=== PATIENT | female | born 1945 | race Caucasian/White ===

== ENCOUNTER 2017-06-26 15:23 | Outpatient (CLI) | payer OTHER, MEDICARE ==
--- NOTE | 2017-06-28 17:15 | Mammography Report ---
DIGITAL SCREENING MAMMOGRAM: 06/26/2017 CLINICAL INDICATION: A 71-year-old with history of benign biopsies for screening. TECHNIQUE: Routine CC and MLO projections were obtained of the breasts. COMPARISON: 01/2015, 11/2007. The breasts again demonstrate heterogeneously dense fibroglandular parenchyma bilaterally. Post-biop sy changes are stable. Coarse and punctate, typically benign calcifications are present. No suspici ous masses, clustered microcalcifications, or regions of architectural distortion are identified. IMPRESSION: BENIGN FINDINGS. RECOMMENDATION: ROUTINE ANNUAL SCREENING UNLESS OTHERWISE CLINICALLY INDICATED. BIRADS CATEGORY: 2, BENIGN FINDINGS. STANDARD QUALIFYING STATEMENTS 1. This examination was reviewed with the aid of Computed-Aided Detection (CAD). 2. A negative or benign imaging report should not delay biopsy if clinically suspicious findings are present. Consider surgical consultation if warranted. More than 5% of cancers are not identified b y imaging. 3. Dense breasts may obscure an underlying neoplasm. JOB #: [id number] EXT JOB #:[id number]
== END 2017-06-26 15:24 | disposition home or self-care (01) ==
LOC: DI 15:23
PROVIDERS: ATTEND Family Medicine
DX: Z12.31 Encounter for screening mammogram for malignant neoplasm of breast (principal)
CPT/HCPCS: 77067

== ENCOUNTER 2017-11-20 12:14 | Outpatient (CLI) | payer OTHER, MEDICARE ==
[2017-11-20 19:06] LABS: MEAN CORPUSCULAR HEMOGLOBIN 31.8 pg (27.0-31.0); MEAN CORPUSCULAR HGB CONC 33.5 g/dL (32.0-36.0); MEAN CORPUSCULAR VOLUME 94.8 fL (81.0-99.0); MEAN PLATELET VOLUME 6.6 fL (7.9-10.8); RED BLOOD COUNT 4.41 10^6/uL (4.20-5.40); RED CELL DISTRIBUTION WIDTH 12.4 % (12.0-15.0)
[2017-11-20 19:15] LABS: CALCIUM 9.4 mg/dL (8.5-10.3); CREATININE 0.8 mg/dL (0.4-1.0)
== END 2017-11-20 12:15 ==
LOC: LAB.WCP 12:14
PROVIDERS: ATTEND Family Medicine
DX: I10 Essential (primary) hypertension (principal)
CPT/HCPCS: 36415; 80048

== ENCOUNTER 2018-07-26 02:30 | Outpatient (CLI) | payer OTHER, MEDICARE | END 2018-07-26 02:31 | disposition critical access hospital (66) | LOC: EMS 02:30 | PROVIDERS: ATTEND Surgery | DX: R10.9 Unspecified abdominal pain (principal) | CPT/HCPCS: A0425; A0429 ==

== ENCOUNTER 2018-07-26 02:46 | Emergency (ER) | payer OTHER, MEDICARE ==
[2018-07-26 03:02] LABS: BASOPHILS # (AUTO) 0.1 10^3/uL (0.0-0.1); BASOPHILS % (AUTO) 1.2 %; EOSINOPHILS # (AUTO) 0.2 10^3/uL (0.0-0.7); EOSINOPHILS % (AUTO) 2.5 %; LYMPHOCYTES % (AUTO) 11.9 %; MEAN CORPUSCULAR HGB CONC 35.3 g/dL (32.0-36.0); MEAN CORPUSCULAR VOLUME 96.3 fL (81.0-99.0); MEAN PLATELET VOLUME 5.5 fL (7.9-10.8); MONOCYTES # (AUTO) 0.3 10^3/uL (0.0-1.0); MONOCYTES % (AUTO) 3.7 %; NEUTROPHILS # (AUTO) 6.6 10^3/uL (1.5-6.6); NEUTROPHILS % (AUTO) 80.7 %; PLT - PLATELET COUNT 211 10^3/uL (130-450); RED CELL DISTRIBUTION WIDTH 12.9 % (12.0-15.0); WHITE BLOOD COUNT 8.2 x10^3/uL (4.8-10.8)
[2018-07-26 03:14] LABS: ALBUMIN/GLOBULIN RATIO 1.3 (1.0-2.2); BILIRUBIN,TOTAL 0.4 mg/dL (0.2-1.0); CREATININE 0.7 mg/dL (0.4-1.0); TOTAL PROTEIN 7.2 g/dL (6.7-8.2)
--- NOTE | 2018-07-26 03:17 | ED Physician Documentation ---
PD HPI ABD PAIN - Stated complaint Stated Complaint: RLQ PAIN - Chief complaint Chief Complaint: Abd Pain - History obtained from History obtained from: Patient - History of Present Illness Timing - onset: Enter time (22:00) Timing - duration: Hours Timing - details: Abrupt onset Pain level max: 10 Pain level now: 10 Quality: Pain Location: RLQ Radiation: Other (does not radiate) Improved by: Laying still Worsened by: Moving, Palpation Associated symptoms: Nausea. No: Fever, Vomiting, Diarrhea, Constipation Similar symptoms before: Has not had sx before Recently seen: Not recently seen - Additional information Additional information: c/o RLQ abdominal pain, sudden onset that woke her from sleep at 10 PM Review of Systems Constitutional: reports: Reviewed and negative Cardiac: reports: Reviewed and negative Respiratory: reports: Reviewed and negative GI: reports: Abdominal Pain, Nausea. 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 HEENT: Tonsil/Adenoidectomy - Present Medications Home Medications: Ambulatory Orders Medication Instructions Recorded Confirmed Acetaminophen [Pain Relief] 1,000 mg PO BID PRN 06/04/13 07/26/18 Aspirin EC [Ecotrin] 81 mg PO DAILY 06/04/13 07/26/18 Lisinopril [Prinivil] 20 mg PO BID 06/04/13 07/26/18 Metoprolol Succinate [Toprol Xl] 25 mg PO QPM 06/04/13 07/26/18 Hydrocodone/Acetaminophen 1 - 2 each PO Q6H PRN #14 tablet 07/26/18 [Hydrocodon-Acetaminophen 5-325] Metronidazole [Flagyl] 500 mg PO TID #30 tablet 07/26/18 Ondansetron Odt [Zofran] 4 mg TL Q6H PRN #10 tablet 07/26/18 Sulfamethox/Trimeth 800/160 1 each PO BID #20 tablet 07/26/18 [Bactrim Ds 800/160] amLODIPine [Norvasc] 5 mg PO DAILY 07/26/18 07/26/18 - Allergies Allergies/Adverse Reactions: Allergies Allergy/AdvReac Type Severity Reaction Status Date / Time venom-honey bee Allergy Severe Respiratory Verified 07/26/18 02:52 [bee venom (honey bee)] codeine [Codeine] Allergy Rash Verified 07/26/18 02:52 meperidine HCl * Allergy Emesis Verified 07/26/18 02:52 [From Demerol] Penicillins Allergy Rash Verified 07/26/18 02:52 tetracycline [Tetracycline] Allergy Rash Verified 07/26/18 02:52 - Social History Does the pt smoke?: Yes Smoking Status: Current every day smoker Does the pt drink ETOH?: Yes ETOH Use: Wine Does the pt have substance abuse?: No - Immunizations Immunizations are current?: Yes - POLST Patient has POLST: No PD ED PE NORMAL - Vitals Vital signs reviewed: Yes - General General: Alert and oriented X 3, Well developed/nourished, Other (obvious painful distress) - Neck Neck: Supple, no meningeal sign - Cardiac Cardiac: RRR, No murmur - Respiratory Respiratory: No respiratory distress, Clear bilaterally - Abdomen Abdomen: Normal bowel sounds, Soft, Non distended - Back Back: No CVA TTP - Derm Derm: Normal color, Warm and dry - Extremities Extremities: No edema PD ED PE EXPANDED - Abdomen Abdomen: Tender to palpation (most pronounced in RLQ), Guarding, RUQ, Periumbilical, RLQ. No: Rebound Results - Vitals Vitals: Vital Signs - 24 hr 07/26/18 07/26/18 07/26/18 02:48 04:16 04:36 Temperature 37.2 C 37.1 C Heart Rate 88 87 84 Respiratory 16 16 Rate Blood Pressure 140/93 H 129/58 L O2 Saturation 97 90 L 93 07/26/18 07/26/18 05:11 05:46 Temperature Heart Rate 77 77 Respiratory 16 16 Rate Blood Pressure 116/72 134/77 H O2 Saturation 93 94 Oxygen O2 Source Room air Oxygen Flow Rate 2 - Labs Labs: Laboratory Tests 07/26/18 07/26/18 07/26/18 02:59 02:59 04:43 WBC 8.2 RBC 4.40 Hgb 15.0 Hct 42.3 MCV 96.3 MCH 34.0 H MCHC 35.3 RDW 12.9 Plt Count 211 MPV 5.5 L Neut # (Auto) 6.6 Lymph # (Auto) 1.0 L [place] # (Auto) 0.3 Eos # (Auto) 0.2 Baso # (Auto) 0.1 Absolute Nucleated RBC 0.00 Nucleated RBC % 0.0 Sodium 134 L Potassium 3.6 Chloride 100 L Carbon Dioxide 24 Anion Gap 10.0 BUN 14 Creatinine 0.7 Estimated GFR (MDRD) 82 L Glucose 117 H Calcium 9.0 Total Bilirubin 0.4 AST 20 ALT 15 Alkaline Phosphatase 73 Total Protein 7.2 Albumin 4.0 Globulin 3.2 Albumin/Globulin Ratio 1.3 Lipase 32 Urine Color YELLOW Urine Clarity CLEAR Urine pH 6.5 Ur Specific [place] 1.010 Urine Protein NEGATIVE Urine Glucose (UA) NEGATIVE Urine Ketones NEGATIVE Urine Occult Blood TRACE-INTA Urine Nitrite POSITIVE H Urine Bilirubin NEGATIVE Urine Urobilinogen 0.2 (NORMAL) Ur Leukocyte Esterase NEGATIVE Urine RBC 0-5 Urine WBC 0-3 Ur Squamous Epith Cells FEW Squamous Urine Bacteria Many H Ur Microscopic Review INDICATED Urine Culture Comments INDICATED - Rads (name of study) CT A/P Radiology: Prelim report reviewed, See rad report PD MEDICAL DECISION MAKING - ED course Complexity details: reviewed results, re-evaluated patient, considered differential, d/w patient Departure - Departure Disposition: 01 Home, Self Care Clinical Impression: Colitis UTI (urinary tract infection) Qualifiers: Urinary tract infection type: acute cystitis Hematuria presence: without hematuria Qualified Code(s): N30.00 - Acute cystitis without hematuria Condition: Good Instructions: ED Diverticulitis, ED UTI Cystitis Female Follow-Up: you,doctor in 3 days for recheck [Other] Prescriptions: Hydrocodone/Acetaminophen [Hydrocodon-Acetaminophen 5-325] 1 - 2 each PO Q6H PRN #14 tablet PRN Reason: pain Metronidazole [Flagyl] 500 mg PO TID #30 tablet Ondansetron Odt [Zofran] 4 mg TL Q6H PRN #10 tablet PRN Reason: Nausea / Vomiting Sulfamethox/Trimeth 800/160 [Bactrim Ds 800/160] 1 each PO BID #20 tablet Comments: Do not take your lisinopril while taking the bactrim as this can cause kidney and potassium issues. do not drink alcohol with the flagyl. Take all antibiotics until gone. Return if you worsen including but not limited to fevers or increased pain. Do not drink alcohol or drive while on narcotic pain medicine. Note that many narcotic pain relievers also contain tylenol/acetaminophen. Please ensure that your total dose of acetaminophen from all sources does not exceed 3 grams (3000mg) per day. You may constipated on this medication, take a stool softener such as "Colace" twice a day while you are on it. Also recommend a ubbo-hly-gvsopie laxative such as senna or MiraLAX any day that you do not have a bowel movement. If you received narcotic pain medication in the emergency department, do not drive or operate machinery for the next 24 hours. Discharge Date/Time: 07/26/18 06:14
[2018-07-26] MEDS ORDERED: HYDROmorphone 1 MG/ML CARPUJECT IVP STA (03:26)
[2018-07-26] MEDS ORDERED: ONDANSETRON 4 MG/2 ML VIAL IVP STA (03:26)
[2018-07-26] MEDS ORDERED: IOPAMIDOL-300 100 ML VIAL ONE (03:42)
[2018-07-26] MEDS ORDERED: IOPAMIDOL-300 100 ML VIAL IVP ONE (04:19)
--- NOTE | 2018-07-26 04:33 | CT Report ---
Reason: RLQ pain Procedure Date: 07/26/2018 Accession Number: [id number] / [id number] Procedure: CT - Abdomen/Pelvis W/ CPT Code: FULL RESULT: EXAM: CT ABDOMEN AND PELVIS EXAM DATE: 07/26/2018 04:01 AM. CLINICAL HISTORY: RLQ pain. COMPARISONS: None. TECHNIQUE: Routine helical CT imaging was performed through the abdomen and pelvis. IV contrast: 100 ML ISOVUE 300. Enteric contrast: No. Reconstructions: Coronal and sagittal. In accordance with CT protocol optimization, one or more of the following dose reduction techniques were utilized for this exam: automated exposure control, adjustment of mA and/or KV based on patient size, or use of iterative reconstructive technique. FINDINGS: Lung Bases: Unremarkable. Liver: Hepatic cysts. No biliary dilatation. Gallbladder/Bile Ducts: Unremarkable. Spleen: Normal. Pancreas: Normal. Adrenal Glands: Normal. Kidneys: Cortical cysts. No hydronephrosis. Peritoneal Cavity/Bowel: Normal. No free fluid, free air or adenopathy. No masses or acute inflammatory process. The appendix is not confidently identified, but no pericecal fluid collection or inflammation is seen to suggest acute appendicitis. Pelvic Organs: Normal. The bladder and visualized pelvic organs are within normal limits. Vasculature: No aneurysms or other significant abnormality. Bones: No significant abnormality. Other: None. IMPRESSION: No evident etiology for patient's pain. RADIA
[2018-07-26 04:58] LABS: BILIRUBIN,URINE NEGATIVE (NEGATIVE); GLUCOSE, URINE (UA) NEGATIVE (NEGATIVE); KETONES,URINE (UA) NEGATIVE (NEGATIVE); LEUKOCYTE ESTERASE, URINE NEGATIVE (NEGATIVE); NITRITE,URINE POSITIVE (NEGATIVE); OCCULT BLOOD,URINE TRACE-INTA (NEGATIVE); PH,URINE 6.5 PH (5.0-7.5); PROTEIN,URINE NEGATIVE (NEGATIVE); UROBILINOGEN,URINE 0.2 (NORMAL) E.U./dL (NORMAL)
[2018-07-26] MEDS ORDERED: SODIUM CHLORIDE 0.9% 1,000 ML IV ONE (05:02)
[2018-07-26 05:07] LABS: CLARITY,URINE CLEAR (CLEAR)
[2018-07-26 05:08] LABS: BACTERIA,URINE Many /HPF (None Seen); RBC,URINE 0-5 /HPF (0-5); SQUAMOUS EPITHELIAL CELL,UR FEW Squamous (<= Few)
--- NOTE | 2018-07-26 05:08 | ED Physician Documentation ---
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 HEENT: Tonsil/Adenoidectomy - Present Medications Home Medications: Ambulatory Orders Medication Instructions Recorded Confirmed Acetaminophen [Pain Relief] 1,000 mg PO BID PRN 06/04/13 07/26/18 Aspirin EC [Ecotrin] 81 mg PO DAILY 06/04/13 07/26/18 Lisinopril [Prinivil] 20 mg PO BID 06/04/13 07/26/18 Metoprolol Succinate [Toprol Xl] 25 mg PO QPM 06/04/13 07/26/18 Hydrocodone/Acetaminophen 1 - 2 each PO Q6H PRN #14 tablet 07/26/18 [Hydrocodon-Acetaminophen 5-325] Metronidazole [Flagyl] 500 mg PO TID #30 tablet 07/26/18 Ondansetron Odt [Zofran] 4 mg TL Q6H PRN #10 tablet 07/26/18 Sulfamethox/Trimeth 800/160 1 each PO BID #20 tablet 07/26/18 [Bactrim Ds 800/160] amLODIPine [Norvasc] 5 mg PO DAILY 07/26/18 07/26/18 - Allergies Allergies/Adverse Reactions: Allergies Allergy/AdvReac Type Severity Reaction Status Date / Time venom-honey bee Allergy Severe Respiratory Verified 07/26/18 02:52 [bee venom (honey bee)] codeine [Codeine] Allergy Rash Verified 07/26/18 02:52 meperidine HCl * Allergy Emesis Verified 07/26/18 02:52 [From Demerol] Penicillins Allergy Rash Verified 07/26/18 02:52 tetracycline [Tetracycline] Allergy Rash Verified 07/26/18 02:52 - Social History Does the pt smoke?: Yes Smoking Status: Current every day smoker Does the pt drink ETOH?: Yes ETOH Use: Wine Does the pt have substance abuse?: No - Immunizations Immunizations are current?: Yes - POLST Patient has POLST: No Results - Vitals Vitals: Vital Signs - 24 hr 07/26/18 07/26/18 07/26/18 02:48 04:16 04:36 Temperature 37.2 C 37.1 C Heart Rate 88 87 84 Respiratory 16 16 Rate Blood Pressure 140/93 H 129/58 L O2 Saturation 97 90 L 93 07/26/18 05:11 Temperature Heart Rate 77 Respiratory 16 Rate Blood Pressure 116/72 O2 Saturation 93 Oxygen O2 Source Nasal cannula Oxygen Flow Rate 2 - Labs Labs: Laboratory Tests 07/26/18 07/26/18 07/26/18 02:59 02:59 04:43 WBC 8.2 RBC 4.40 Hgb 15.0 Hct 42.3 MCV 96.3 MCH 34.0 H MCHC 35.3 RDW 12.9 Plt Count 211 MPV 5.5 L Neut # (Auto) 6.6 Lymph # (Auto) 1.0 L [place] # (Auto) 0.3 Eos # (Auto) 0.2 Baso # (Auto) 0.1 Absolute Nucleated RBC 0.00 Nucleated RBC % 0.0 Sodium 134 L Potassium 3.6 Chloride 100 L Carbon Dioxide 24 Anion Gap 10.0 BUN 14 Creatinine 0.7 Estimated GFR (MDRD) 82 L Glucose 117 H Calcium 9.0 Total Bilirubin 0.4 AST 20 ALT 15 Alkaline Phosphatase 73 Total Protein 7.2 Albumin 4.0 Globulin 3.2 Albumin/Globulin Ratio 1.3 Lipase 32 Urine Color YELLOW Urine Clarity CLEAR Urine pH 6.5 Ur Specific [place] 1.010 Urine Protein NEGATIVE Urine Glucose (UA) NEGATIVE Urine Ketones NEGATIVE Urine Occult Blood TRACE-INTA Urine Nitrite POSITIVE H Urine Bilirubin NEGATIVE Urine Urobilinogen 0.2 (NORMAL) Ur Leukocyte Esterase NEGATIVE Urine RBC 0-5 Urine WBC 0-3 Ur Squamous Epith Cells FEW Squamous Urine Bacteria Many H Ur Microscopic Review INDICATED Urine Culture Comments INDICATED PD MEDICAL DECISION MAKING - ED course Complexity details: reviewed results, re-evaluated patient, considered differential, d/w patient ED course: Patient is a 73-year-old female who was signed out to me by Dr. Art. Please see his history and physical for full details on this patient. Briefly she developed right lower quadrant pain at approximately 10 PM last night, described as burning. Occasionally radiates to the low back. Denies any urinary symptoms. Has had a hysterectomy including bilateral oophorectomy. Also has had an appendectomy. Did have nausea. No fevers. Pain is worse with movement and palpation. Nothing made the pain better at home. She was given Dilaudid here and feels significantly improved. Her CT scan does not reveal any acute abnormalities, however there may be colitis in the ascending colon. I discussed the case with the radiologist. I reevaluated her abdomen and she continues to be tender on the right side of the abdomen, though markedly improved from prior. We will treat her for UTI and colitis. She is well-appearing, nontoxic. Afebrile. Comfortable going home at this time. Patient counseled regarding signs and symptoms for which I believe and urgent re-evaluation would be necessary. Patient with good understanding of and agreement to plan and is comfortable going home at this time This document was made in part using voice recognition software. While efforts a re made to proofread this document, sound alike and grammatical errors may occur. Departure - Departure Disposition: 01 Home, Self Care Clinical Impression: Colitis UTI (urinary tract infection) Qualifiers: Urinary tract infection type: acute cystitis Hematuria presence: without hematuria Qualified Code(s): N30.00 - Acute cystitis without hematuria Condition: Good Instructions: ED Diverticulitis, ED UTI Cystitis Female Follow-Up: you,doctor in 3 days for recheck [Other] Prescriptions: Hydrocodone/Acetaminophen [Hydrocodon-Acetaminophen 5-325] 1 - 2 each PO Q6H PRN #14 tablet PRN Reason: pain Metronidazole [Flagyl] 500 mg PO TID #30 tablet Ondansetron Odt [Zofran] 4 mg TL Q6H PRN #10 tablet PRN Reason: Nausea / Vomiting Sulfamethox/Trimeth 800/160 [Bactrim Ds 800/160] 1 each PO BID #20 tablet Comments: Do not take your lisinopril while taking the bactrim as this can cause kidney and potassium issues. do not drink alcohol with the flagyl. Take all antibiotics until gone. Return if you worsen including but not limited to fevers or increased pain. Do not drink alcohol or drive while on narcotic pain medicine. Note that many narcotic pain relievers also contain tylenol/acetaminophen. Please ensure that your total dose of acetaminophen from all sources does not exceed 3 grams (3000mg) per day. You may constipated on this medication, take a stool softener such as "Colace" twice a day while you are on it. Also recommend a hjyo-sey-yckfssl laxative such as senna or MiraLAX any day that you do not have a bowel movement. If you received narcotic pain medication in the emergency department, do not drive or operate machinery for the next 24 hours.
[2018-07-26] MEDS ORDERED: cefTRIAXone 1 GM VIAL IVP STA (05:13)
[2018-07-26] MEDS ORDERED: metroNIDAZOLE 250 MG TABLET PO STA (05:15)
[2018-07-26] MEDS ORDERED: SULFAMETH/TRIMETH DS 800/160 MG TABLET PO STA (05:15)
[2018-07-26] MEDS ORDERED: HYDROcod/ACETAM 5/325 MG TABLET PO STA (05:24)
[2018-07-26 05:47] VITALS: BP 134/77
== END 2018-07-26 06:14 | disposition home or self-care (01) ==
LOC: EDUNIT# → ED 02:46
DX: K52.9 Noninfective gastroenteritis and colitis, unspecified (principal); N30.00 Acute cystitis without hematuria; I10 Essential (primary) hypertension; F17.200 Nicotine dependence, unspecified, uncomplicated; Z79.82 Long term (current) use of aspirin; Z96.649 Presence of unspecified artificial hip joint
CPT/HCPCS: 36415; 74177; 80053; 81001; 83690; 85025; 87077; 87086; 87181; 96361; 96374; 99284; A9270; J1170; Q9967; 81003

== ENCOUNTER 2018-07-28 14:12 | Emergency (ER) | payer OTHER, MEDICARE ==
[2018-07-28] MEDS ORDERED: ONDANSETRON 4 MG/2 ML VIAL IVP STA (14:31)
[2018-07-28] MEDS ORDERED: SODIUM CHLORIDE 0.9% 1,000 ML IV ONE (14:31)
[2018-07-28] MEDS ORDERED: HYDROmorphone 1 MG/ML CARPUJECT IVP STA (14:31)
--- NOTE | 2018-07-28 14:35 | ED Physician Documentation ---
PD HPI ABD PAIN - Stated complaint Stated Complaint: ABD PX/BLOATING - Chief complaint Chief Complaint: Abd Pain - History obtained from History obtained from: Patient - History of Present Illness Timing - onset: Other (73-year-old woman with history of appendectomy, oophorectomy, and hysterectomy all remotely presents with several days of worsening right-sided abdominal pain. She was seen here 2 nights ago and diagnosed with colitis and a UTI. Urine culture grew out Klebsiella pneumonia which was sensitive to the Bactrim that she was placed on. She was also placed on Flagyl. Since that time the pain has moved up towards the right upper quadrant and centrally towards the epigastrium. She feels bloated and is unable to eat and therefore is not having any bowel movements. Her nausea is con trolled by the ondansetron she was put on the other night. She denies any fevers.) - Additional information Additional information: She has also has new symmetric pedal edema that started last night without increase in shortness of breath. Her amlodipine is not new and she is never had pedal edema before. Review of Systems Ten Systems: 10 systems reviewed and negative Constitutional: denies: Fever, Chills Nose: denies: Rhinorrhea / runny nose, Congestion Respiratory: reports: Dyspnea (Chronic from COPD and unchanged from any other day), Cough (Chronic from COPD and unchanged from any other day) GI: reports: Abdominal Pain, Nausea, Constipation. 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 HEENT: Tonsil/Adenoidectomy - Present Medications Home Medications: Ambulatory Orders Medication Instructions Recorded Confirmed Acetaminophen [Pain Relief] 1,000 mg PO BID PRN 06/04/13 07/26/18 Aspirin EC [Ecotrin] 81 mg PO DAILY 06/04/13 07/26/18 Lisinopril [Prinivil] 20 mg PO BID 06/04/13 07/26/18 Metoprolol Succinate [Toprol Xl] 25 mg PO QPM 06/04/13 07/26/18 Hydrocodone/Acetaminophen 1 - 2 each PO Q6H PRN #14 tablet 07/26/18 [Hydrocodon-Acetaminophen 5-325] Metronidazole [Flagyl] 500 mg PO TID #30 tablet 07/26/18 Ondansetron Odt [Zofran] 4 mg TL Q6H PRN #10 tablet 07/26/18 RX: amLODIPine [Norvasc] 5 mg PO DAILY 07/26/18 07/26/18 Sulfamethox/Trimeth 800/160 1 each PO BID #20 tablet 07/26/18 [Bactrim Ds 800/160] Ciprofloxacin HCl [Cipro] 500 mg PO BID #20 tablet 07/28/18 Hydrocodone/Acetaminophen 1 - 2 each PO Q6H PRN #14 tablet 07/28/18 [Hydrocodon-Acetaminophen 5-325] RX: Albuterol Sulf [Ventolin Hfa 1 - 2 puffs INH Q4HR PRN #1 inhaler 07/28/18 Inhaler] - Allergies Allergies/Adverse Reactions: Allergies Allergy/AdvReac Type Severity Reaction Status Date / Time venom-honey bee Allergy Severe Respiratory Verified 07/28/18 14:19 [bee venom (honey bee)] codeine [Codeine] Allergy Rash Verified 07/28/18 14:19 meperidine HCl * Allergy Emesis Verified 07/28/18 14:19 [From Demerol] Penicillins Allergy Rash Verified 07/28/18 14:19 tetracycline [Tetracycline] Allergy Rash Verified 07/28/18 14:19 - Social History Does the pt smoke?: Yes Smoking Status: Current every day smoker Does the pt drink ETOH?: Yes Does the pt have substance abuse?: No - Family History Family history: reports: Non contributory - Immunizations Immunizations are current?: Yes - POLST Patient has POLST: No PD ED PE NORMAL - Vitals Vital signs reviewed: Yes - General General: Alert and oriented X 3, No acute distress - HEENT HEENT: PERRL, EOMI - Neck Neck: Supple, no meningeal sign, No bony TTP - Cardiac Cardiac: RRR, No murmur - Respiratory Respiratory: Other (Rhonchorous especially on the left) - Abdomen Abdomen: Other (Hyperactive bowel tones with distinct and significant tenderness on the right side with diffuse guarding and rebound tenderness.) - Derm Derm: Normal color, Warm and dry - Extremities Extremities: Other (2+ symmetric pedal edema) - Neuro Neuro: Alert and oriented X 3, Normal speech - Psych Psych: Normal mood, Normal affect Results - Vitals Vitals: Vital Signs - 24 hr 07/28/18 07/28/18 07/28/18 14:15 18:29 19:04 Temperature 37.1 C 37.0 C Heart Rate 93 86 73 Respiratory 20 16 18 Rate Blood Pressure 134/113 H 127/66 O2 Saturation 90 L 88 L 07/28/18 07/28/18 19:51 21:20 Temperature Heart Rate 97 81 Respiratory 20 20 Rate Blood Pressure 118/58 L 110/69 O2 Saturation 97 95 Oxygen O2 Source Room air - Labs Labs: Laboratory Tests 07/28/18 07/28/18 07/28/18 14:40 14:40 14:40 WBC 9.8 RBC 3.84 L Hgb 13.2 Hct 37.0 MCV 96.2 MCH 34.3 H MCHC 35.7 RDW 13.3 Plt Count 188 MPV 6.1 L Neut # (Auto) 8.3 H Lymph # (Auto) 0.7 L [place] # (Auto) 0.6 Eos # (Auto) 0.1 Baso # (Auto) 0.0 Absolute Nucleated RBC 0.00 Nucleated RBC % 0.0 Sodium 130 L Potassium 3.8 Chloride 95 L Carbon Dioxide 22 Anion Gap 13.0 BUN 15 Creatinine 0.8 Estimated GFR (MDRD) 70 L Glucose 122 H Lactic Acid 1.4 Calcium 9.7 Total Bilirubin 0.3 AST 17 ALT 12 Alkaline Phosphatase 70 Total Protein 7.9 Albumin 4.0 Globulin 3.9 Albumin/Globulin Ratio 1.0 Lipase 20 L - Rads (name of study) 1v chest Radiology: EMP read contemporaneously (COPD, no acute disease, no free air) CT A/P Radiology: EMP read contemporaneously (Left lower lobe collapse concerning for obstructing lesion and cecal inflammation. Also sludge versus tiny stones in the gallbladder) Chest CT Radiology: EMP read contemporaneously (Left lower lobe collapse) RUQ sono Radiology: EMP read contemporaneously (GAll bladder sludge and slightly dilated common bile duct without other acute findings) PD MEDICAL DECISION MAKING - ED course ED course: 73-year-old woman with previous diagnosis of colitis presents with continued and worsening pain now in the right upper quadrant. She has abnormal breath sounds. CT as shown and followed with chest CT showing simple left lower lobe collapse. She was given a breathing treatment for this. That should resolve without other specific intervention. Dr. Dominguez, the on-call surgeon saw the patient and reviewed her diagnostics and feel that she has persistent colitis and recommends fluoroquinolone in addition to Flagyl and she will need a colonoscopy in 6-8 weeks as this woman is at fairly high risk for malignancy given her long-standing smoking history. Note made that her exam improved significantly after the administration of IV pain medication here and the surgical signs disappeared although she remained persistently tender. Departure - Departure Disposition: 01 Home, Self Care Clinical Impression: Colitis, UTI (urinary tract infection), Bronchiectasis Condition: Good Record reviewed to determine appropriate education?: Yes Instructions: ED Abdominal Pain Unkn Cause Prescriptions: RX: Albuterol Sulf [Ventolin Hfa Inhaler] 1 - 2 puffs INH Q4HR PRN #1 inhaler PRN Reason: Shortness Of Air/Wheezing Ciprofloxacin HCl [Cipro] 500 mg PO BID #20 tablet Hydrocodone/Acetaminophen [Hydrocodon-Acetaminophen 5-325] 1 - 2 each PO Q6H PRN #14 tablet PRN Reason: pain Comments: You should stop the sulfamethoxazole/trimethoprim antibiotic but continue the metronidazole antibiotic. Adding the new antibiotic ciprofloxacin as well. You will need a colonoscopy in 6-8 weeks in follow-up, Discussed this with your family doctor with whom he should follow-up within 2-3 days.. Return anytime if worse. Discharge Date/Time: 07/28/18 21:36
[2018-07-28 14:53] LABS: BASOPHILS % (AUTO) 0.1 %; EOSINOPHILS # (AUTO) 0.1 10^3/uL (0.0-0.7); EOSINOPHILS % (AUTO) 1.5 %; HGB - HEMOGLOBIN 13.2 g/dL (12.0-16.0); LYMPHOCYTES # (AUTO) 0.7 10^3/uL (1.5-3.5); LYMPHOCYTES % (AUTO) 6.8 %; MEAN CORPUSCULAR HEMOGLOBIN 34.3 pg (27.0-31.0); MEAN CORPUSCULAR HGB CONC 35.7 g/dL (32.0-36.0); MEAN CORPUSCULAR VOLUME 96.2 fL (81.0-99.0); MEAN PLATELET VOLUME 6.1 fL (7.9-10.8); MONOCYTES # (AUTO) 0.6 10^3/uL (0.0-1.0); MONOCYTES % (AUTO) 6.5 %; NEUTROPHILS # (AUTO) 8.3 10^3/uL (1.5-6.6); NEUTROPHILS % (AUTO) 85.1 %; PLT - PLATELET COUNT 188 10^3/uL (130-450); RED BLOOD COUNT 3.84 10^6/uL (4.20-5.40); RED CELL DISTRIBUTION WIDTH 13.3 % (12.0-15.0); WHITE BLOOD COUNT 9.8 x10^3/uL (4.8-10.8)
[2018-07-28] MEDS ORDERED: IOPAMIDOL-300 100 ML VIAL ONE ×2 (15:02→16:34)
--- NOTE | 2018-07-28 15:03 | XRAY Report ---
Reason: abd pain, eval for free air, also mild hypoxemia Procedure Date: 07/28/2018 Accession Number: [id number] / [id number] Procedure: XR - Chest 1 View X-Ray CPT Code: 67344 FULL RESULT: EXAM: CHEST RADIOGRAPHY, 2 VIEWS. EXAM DATE: 07/28/2018 02:37 PM. CLINICAL HISTORY: A 73-year-old female with abdominal pain and mild hypoxia. Evaluate for free air. COMPARISON: Thoracic spine 2 view 06/20/2018 8:01 AM 06/05/2014 1:37 PM. 2 view chest of 06/05/2014. TECHNIQUE: 1428 hour AP upright portable view. FINDINGS: Lungs/Pleura: No focal opacities evident. No pleural effusion. No pneumothorax. Mild hyperinflation, as previously. Mediastinum: Within exam limitations, the cardiomediastinal contour is normal. No pulmonary vascular congestion or adenopathy. Other: No free air under the hemidiaphragms. Trachea is midline. Osseous structures are unremarkable. IMPRESSION: Hyperinflation suggesting COPD, as previously. No acute cardiopulmonary process. No free intraperitoneal air noted under the hemidiaphragms. RADIA
[2018-07-28 15:06] LABS: BILIRUBIN,TOTAL 0.3 mg/dL (0.2-1.0); CALCIUM 9.7 mg/dL (8.5-10.3); CREATININE 0.8 mg/dL (0.4-1.0); TOTAL PROTEIN 7.9 g/dL (6.7-8.2)
--- NOTE | 2018-07-28 15:51 | CT Report ---
Reason: IV and PO, R side abd pain, Procedure Date: 07/28/2018 Accession Number: [id number] / [id number] Procedure: CT - Abdomen/Pelvis W/ CPT Code: FULL RESULT: EXAM: CT ABDOMEN AND PELVIS EXAM DATE: 07/28/2018 03:19 PM. CLINICAL HISTORY: Right-sided abdominal pain COMPARISONS: ABDOMEN/PELVIS W/ 07/26/2018 4:01 AM. TECHNIQUE: Routine helical CT imaging was performed through the abdomen and pelvis. IV contrast: ISOVUE 300 100mL. Enteric contrast: No. Reconstructions: Coronal and sagittal. In accordance with CT protocol optimization, one or more of the following dose reduction techniques were utilized for this exam: automated exposure control, adjustment of mA and/or KV based on patient size, or use of iterative reconstructive technique. FINDINGS: Lung Bases: New dense left lower lobe collapse. Liver: Stable circumscribed subcentimeter round hypoattenuating foci in inferior right hepatic lobe segment 5, the larger 8 mm (3/34 and 36), too small to characterize further, possibly cysts. Gallbladder/Bile Ducts: Layering hyperattenuating material within the gallbladder, representing sludge versus tiny stones. No gallbladder distention or pericholecystic fat stranding to suggest acute cholecystitis. No biliary ductal dilatation. Spleen: Normal. Pancreas: Punctate parenchymal calcifications in the head, uncinate process, and neck, compatible with sequela of prior pancreatitis. Adrenal Glands: Normal. Kidneys and Ureters: Two cortical cysts in the left lower pole, the larger a 2.3 cm exophytic cyst. Few stable tiny subcentimeter round hyperattenuating foci elsewhere in the bilateral renal cortices likely also represent cysts. No stones, hydronephrosis, or hydroureter. Peritoneal Cavity/Bowel: Mild cecal wall thickening with adjacent inflammatory fat stranding and trace fluid in the right paracolic gutter. The appendix is not seen. No evidence for bowel obstruction. No rim-enhancing focal fluid collection to suggest abscess. No pneumoperitoneum or adenopathy. Pelvic Organs: Partially obscured by streak artifact from right hip prosthesis. The uterus and right ovary are not well seen, possibly absent. The bladder and left ovary are within normal limits as visualized. Vasculature: Moderate atherosclerotic calcifications within the aorta and iliac arteries. Bones: Post right total hip arthroplasty. Mild left convex curvature centered at T12-L1. Multilevel degenerative disk disease, most pronounced and severe at L4-L5 and L5-S1. No acute bony abnormality. Other: None. IMPRESSION: 1. Cecal inflammation, likely colitis. 2. New dense left lower lobe collapse, incompletely imaged, suspicious for central obstructing lesion. Recommend further evaluation with contrast-enhanced CT chest. RADIA
[2018-07-28] MEDS: IOPAMIDOL-300 100 ML VIAL IVP ONE ×2 (16:27→16:35)
--- NOTE | 2018-07-28 17:03 | CT Report ---
Reason: LLL collapse Procedure Date: 07/28/2018 Accession Number: [id number] / [id number] Procedure: CT - Chest W/ CPT Code: FULL RESULT: EXAM: CT CHEST EXAM DATE: 07/28/2018 04:45 PM. CLINICAL HISTORY: LLL collapse. COMPARISONS: ABDOMEN/PELVIS W/ 07/28/2018 3:25 PM ABDOMEN/PELVIS W/ 07/26/2018 4:01 AM. TECHNIQUE: Routine helical CT imaging was performed through the chest. IV contrast: 80 cc Isovue-300 IV. Reconstructions: Coronal and sagittal. In accordance with CT protocol optimization, one or more of the following dose reduction techniques were utilized for this exam: automated exposure control, adjustment of mA and/or KV based on patient size, or use of iterative reconstructive technique. FINDINGS: Lungs/Pleura: There is complete collapse of the left lower lobe. The left lower lobe airways appear opacified. There is mild to moderate emphysema and hyperinflation of the upper lobes. Other lobes appear clear. Negative for pleural effusion. Mediastinum: Heart size is normal. Negative for pericardial effusion. No mediastinal or hilar lymphadenopathy. Bones: Unremarkable. Visualized Abdomen: Unremarkable. Other: None. IMPRESSION: 1. Complete collapse of the left lower lobe. There are endobronchial densities within the left lower lobe, probably representing secretions or mucous plug. The other lobes appear well aerated and there are no other endobronchial lesions present. RADIA
--- NOTE | 2018-07-28 17:42 | Ultrasound Report ---
Reason: RUQ pain Procedure Date: 07/28/2018 Accession Number: [id number] / [id number] Procedure: US - Abdomen Limited CPT Code: FULL RESULT: EXAM: ABDOMEN ULTRASOUND LIMITED, RUQ EXAM DATE: 07/28/2018 05:33 PM. CLINICAL HISTORY: Right upper quadrant pain COMPARISON: ABDOMEN/PELVIS W/ 07/28/2018 3:25 PM. TECHNIQUE: Real-time scanning was performed with static images obtained. FINDINGS: Liver: Normal parenchymal echotexture. 1.1 cm cyst in the inferior right hepatic lobe. Main portal vein flow: Hepatopetal. Gallbladder: Contains layering sludge. No stones, wall thickening, or sonographic Ascencio's sign. Biliary System: CBD measures 7 mm (upper limits of normal 6 mm). No intrahepatic ductal dilatation. Right Kidney: 11.4 cm in length. Normal parenchymal echotexture. No visualized shadowing stones or hydronephrosis. IMPRESSION: 1. Gallbladder sludge. No sonographic evidence for acute cholecystitis. 2. Borderline dilated CBD, 7 mm. Of note, CBD caliber is normal on same-day CT abdomen/pelvis. Recommend correlation with laboratory values to assess for evidence of obstruction. 3. Small simple cyst in the inferior right hepatic lobe, benign incidental finding. RADIA
[2018-07-28] MEDS ORDERED: ALBUTEROL NEB 2.5 MG/3 ML INH STA (18:35)
[2018-07-28] MEDS ORDERED: levoFLOXacin 750 MG/150 ML 750 MG/150 ML BAG IV ONE (18:35)
[2018-07-28] MEDS ORDERED: metroNIDAZOLE 500 MG/100 ML 500 MG/100 ML BAG IV ONE (18:35)
[2018-07-28] MEDS ORDERED: HYDROmorphone 2 MG/ML VIAL IVP STA (18:35)
--- NOTE | 2018-07-28 19:40 | CONSULTATION NOTE ---
Referring Provider Consult Date: 07/28/18 Chief Complaint - Chief Complaint Chief Complaint: abdominal pain History of Present Illness - History of Present Illness HPI Comment/Other: 73 yo woman c/o abdominal pain. She first presented yesterday where she was diagnosed with cecal inflammation and discharged on antibiotics. She returns today with continued pain. Denies fever, diarrhea, N/V. Admits to bloating and RLQ pain. She has had a hysterectomy and appendectomy. Her last colonoscopy was at least 10 years ago. She is a smoker. 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 : reports: None HEENT: reports: None Psych: reports: None Musculoskeletal: reports: Osteoarthritis Derm: reports: None MRSA Hx?: No - Past Surgical History General: reports: Appendectomy, Colonoscopy Ortho: reports: Hip replacement, Arthroscopic surgery /BILLING AND ACCOUNTING STAFF ASSISTANT: reports: Hysterectomy, Oophrectomy HEENT: reports: Tonsil/Adenoidectomy - POLST Patient has POLST: No Meds/Allgy - Home Medications Home Medications: Ambulatory Orders Medication Instructions Recorded Confirmed Acetaminophen [Pain Relief] 1,000 mg PO BID PRN 06/04/13 07/26/18 Aspirin EC [Ecotrin] 81 mg PO DAILY 06/04/13 07/26/18 Lisinopril [Prinivil] 20 mg PO BID 06/04/13 07/26/18 Metoprolol Succinate [Toprol Xl] 25 mg PO QPM 06/04/13 07/26/18 Hydrocodone/Acetaminophen 1 - 2 each PO Q6H PRN #14 tablet 07/26/18 [Hydrocodon-Acetaminophen 5-325] Metronidazole [Flagyl] 500 mg PO TID #30 tablet 07/26/18 Ondansetron Odt [Zofran] 4 mg TL Q6H PRN #10 tablet 07/26/18 Sulfamethox/Trimeth 800/160 1 each PO BID #20 tablet 07/26/18 [Bactrim Ds 800/160] amLODIPine [Norvasc] 5 mg PO DAILY 07/26/18 07/26/18 - Allergies Allergies/Adverse Reactions: Allergies Allergy/AdvReac Type Severity Reaction Status Date / Time venom-honey bee Allergy Severe Respiratory Verified 07/28/18 14:19 [bee venom (honey bee)] codeine [Codeine] Allergy Rash Verified 07/28/18 14:19 meperidine HCl * Allergy Emesis Verified 07/28/18 14:19 [From Demerol] Penicillins Allergy Rash Verified 07/28/18 14:19 tetracycline [Tetracycline] Allergy Rash Verified 07/28/18 14:19 Review of Systems - Gastrointestinal Gastrointestinal: reports: Abdominal pain - All Other Systems All Other Systems: reports: Reviewed and negative Exam - Vital Signs Vital Signs: Vital Signs x48h Temp Pulse Resp BP Pulse Ox 07/28/18 19:04 73 18 07/28/18 18:29 37.0 C 86 16 127/66 88 L 07/28/18 14:15 37.1 C 93 20 134/113 H 90 L - Physical Exam General Appearance: positive: No acute distress Eyes Bilateral: positive: Normal inspection ENT: positive: ENT inspection nml Neck: positive: Nml inspection Respiratory: positive: Chest non-tender Abdomen: positive: Tenderness Back: positive: Nml inspection Skin: positive: Color nml Extremities: positive: Non-tender Neurologic/Psychiatric: positive: Oriented x3 Conclusion/Plan - Diagnosis Diagnosis: colitis/terminal ileitis - Plan Plan: Pt has pain localized over the RLQ c/w the cecal/TI inflammation seen on CT. Pt will be treated with antibiotics, bowel rest, and fluids. She will follow up in clinic for colonoscopy in 6-8 weeks to determine the etiology. - Lab Results Fish Bones: 07/28/18 14:40 07/28/18 14:40
[2018-07-28 21:22] VITALS: BP 110/69
== END 2018-07-28 21:36 | disposition home or self-care (01) ==
LOC: ED 14:12
DX: K52.9 Noninfective gastroenteritis and colitis, unspecified (principal); K50.00 Crohn's disease of small intestine without complications; N39.0 Urinary tract infection, site not specified; J47.9 Bronchiectasis, uncomplicated; J98.19 Other pulmonary collapse; I10 Essential (primary) hypertension; Z96.649 Presence of unspecified artificial hip joint; F17.200 Nicotine dependence, unspecified, uncomplicated; Z79.82 Long term (current) use of aspirin
CPT/HCPCS: 36415; 71045; 71260; 74177; 76705; 80053; 83605; 83690; 85025; 94640; 96361; 96365; 96367; 96375; 96376; 99283; J1170; Q9967

== ENCOUNTER 2018-12-22 13:18 | Outpatient (CLI) | payer BC, MEDICARE | END 2018-12-22 13:19 | disposition home or self-care (01) | LOC: DI 13:18 | PROVIDERS: ATTEND Internal Medicine | DX: R06.00 Dyspnea, unspecified (principal) | CPT/HCPCS: 93306 ==

== ENCOUNTER 2019-07-23 20:07 | Outpatient (CLI) | payer MEDICARE | END 2019-07-23 20:08 | disposition critical access hospital (66) | LOC: EMS 20:07 | PROVIDERS: ATTEND Surgery | DX: R06.00 Dyspnea, unspecified (principal); R05 Cough | CPT/HCPCS: A0425; A0427 ==

== ENCOUNTER 2019-07-23 20:20 | Inpatient (IN) | payer BC, MEDICARE ==
[2019-07-23] MEDS ORDERED: ALBUTEROL NEB 2.5 MG/3 ML INH STA ×2 (21:04→23:24)
[2019-07-23] MEDS ORDERED: cefTRIAXone 1 GM in SODIUM CHLORIDE 0.9% MINIBAG 100 ML IV STA (21:04)
[2019-07-23] MEDS ORDERED: methylPREDNISolone SUCCINATE 125 MG/2 ML VIAL IVP STA (21:05)
--- NOTE | 2019-07-23 21:13 | ED Physician Documentation ---
PD HPI DYSPNEA - Stated complaint Stated Complaint: SOA, WHEEZING, COUGH - Chief complaint Chief Complaint: Resp - History obtained from History obtained from: Patient - History of Present Illness Timing - onset: How many weeks ago (1) Timing - onset during: Light activity Timing - duration: Weeks (1) Timing - details: Gradual onset, Still present Inciting event(s): URI Improved by: O2, Inhaler/neb Worsened by: Exertion, Laying flat Associated symptoms: Cough, Wheezing. No: Fever, Hemoptysis Similar symptoms before: Diagnosis (COPD) Recently seen: Not recently seen - Treatment prior to arrival Treatment prior to arrival: 74 y/o female with a history of COPD has had a cough and increasing soa for the past week. She has been using her inhaler more frequently and despite this she has worsened. She was 88% on RA on arrival of the medics and improves subjectively with a duoneb treatment. She does not recall being on prednisone pr eviously. Review of Systems Constitutional: reports: Fatigue. denies: Fever Eyes: denies: Decreased vision Ears: denies: Ear pain Nose: denies: Rhinorrhea / runny nose, Congestion Throat: denies: Sore throat Cardiac: denies: Chest pain / pressure, Palpitations, Pedal edema, Calf pain Respiratory: reports: Dyspnea, Cough, Wheezing GI: denies: Abdominal Pain, Nausea, Vomiting : denies: Dysuria, Frequency Musculoskeletal: denies: Neck pain, Back pain, Extremity pain Neurologic: denies: Generalized weakness, Focal weakness, Numbness PD PAST MEDICAL HISTORY - Past Medical History Cardiovascular: Hypertension Respiratory: None Neuro: None Endocrine/Autoimmune: None GI: None 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 : None HEENT: None Psych: None Musculoskeletal: Osteoarthritis Derm: None - Past Surgical History Past Surgical History: Yes General: Appendectomy, Colonoscopy Ortho: Hip replacement, Arthroscopic surgery /FLAT FOLDING MACHINE OPERATOR: Hysterectomy, Oophrectomy HEENT: Tonsil/Adenoidectomy - Present Medications Home Medications: Ambulatory Orders Medication Instructions Recorded Confirmed Acetaminophen [Pain Relief] 1,000 mg PO BID PRN 06/04/13 07/23/19 Aspirin EC [Ecotrin] 81 mg PO DAILY 06/04/13 07/23/19 Lisinopril [Prinivil] 20 mg PO BID 06/04/13 07/23/19 Metoprolol Succinate [Toprol Xl] 25 mg PO BID 06/04/13 07/23/19 amLODIPine [Norvasc] 5 mg PO DAILY 07/26/18 07/23/19 Albuterol Sulf [Ventolin Hfa 1 - 2 puffs INH Q4HR PRN #1 inhaler 07/28/18 07/23/19 Inhaler] - Allergies Allergies/Adverse Reactions: Allergies Allergy/AdvReac Type Severity Reaction Status Date / Time venom-honey bee Allergy Severe Respiratory Verified 07/28/18 14:19 [bee venom (honey bee)] codeine [Codeine] Allergy Rash Verified 07/28/18 14:19 meperidine HCl * Allergy Emesis Verified 07/28/18 14:19 [From Demerol] Penicillins Allergy Rash Verified 07/28/18 14:19 tetracycline [Tetracycline] Allergy Rash Verified 07/28/18 14:19 - Social History Does the pt smoke?: Yes Smoking Status: Current every day smoker Does the pt drink ETOH?: Yes Does the pt have substance abuse?: No - Immunizations Immunizations are current?: Yes - POLST Patient has POLST: No PD ED PE NORMAL - Vitals Vital signs reviewed: Yes (tachypneic and hypertensive ) - General General: Alert and oriented X 3, Well developed/nourished, Other (tachypneic ) - HEENT HEENT: Atraumatic, PERRL, EOMI, Ears normal, Moist mucous membranes, Pharynx benign - Neck Neck: Supple, no meningeal sign, No bony TTP - Cardiac Cardiac: RRR, No murmur - Respiratory Respiratory: Other (tachypneic with fine exp wheeze and scattered rhonchi) - Abdomen Abdomen: Soft, Non tender - Back Back: No CVA TTP, No spinal TTP - Derm Derm: Normal color, Warm and dry, No rash - Extremities Extremities: No deformity, No edema - Neuro Neuro: Alert and oriented X 3, manager lan 2-12 intact, No motor deficit, No sensory deficit, Normal speech Eye Opening: Spontaneous Motor: Obeys Commands Verbal: Oriented GCS Score: 15 - Psych Psych: Other (mood is concerned and affect is flat) Results - Vitals Vitals: Vital Signs - 24 hr 07/23/19 07/23/19 07/23/19 20:28 20:36 21:19 Temperature 36.6 C Heart Rate 82 90 66 Respiratory 24 24 15 Rate Blood Pressure 134/81 H 102/76 O2 Saturation 95 95 07/23/19 07/23/19 07/23/19 21:25 22:27 23:00 Temperature Heart Rate 66 67 70 Respiratory 17 18 14 Rate Blood Pressure 124/81 H 115/73 O2 Saturation 97 94 07/23/19 07/24/19 07/24/19 23:33 00:02 00:03 Temperature Heart Rate 80 71 Respiratory 13 15 Rate Blood Pressure 132/73 H O2 Saturation 88 L 92 Oxygen O2 Source Nasal cannula - Labs Labs: Laboratory Tests 07/23/19 07/23/19 21:13 21:13 WBC 5.6 RBC 4.28 Hgb 14.3 Hct 40.2 MCV 93.9 MCH 33.4 H MCHC 35.6 RDW 11.6 L Plt Count 186 MPV 7.7 L Neut # (Auto) 2.7 Lymph # (Auto) 1.2 L [place]nam # (Auto) 0.7 Eos # (Auto) 0.9 H Baso # (Auto) 0.1 Absolute Nucleated RBC 0.00 Nucleated RBC % 0.0 Sodium 130 L Potassium 3.3 L Chloride 94 L Carbon Dioxide 26 Anion Gap 10.0 BUN 13 Creatinine 0.6 Estimated GFR (MDRD) 97 Glucose 109 H Calcium 9.4 Total Bilirubin 0.5 AST 21 ALT 20 Alkaline Phosphatase 63 Total Protein 7.3 Albumin 4.2 Globulin 3.1 Albumin/Globulin Ratio 1.4 Lipase 40 - Rads (name of study) chest Radiology: Prelim report reviewed (Impression: 1. No acute cardiopulmonary process identified radiographically. Hyperinflated lungs with coarse markings suggestive of COPD), EMP read indepedently (On my read the markings in the right base are generous for streaking), See rad report PD MEDICAL DECISION MAKING - ED course Complexity details: reviewed results, re-evaluated patient, considered differential, d/w patient ED course: 74 y/o female with a history of COPD is hypoxic on arrival to the ED and she is treated with solumedrol 125mg IV , rocephin 1gm IV, and nebs of albuterol, duoneb and albuterol. These all helped, the patient was off of oxygen at 92% RA and a trip to the bathroom led to marked tachypnea and desaturation prior to the 3rd neb treatment. A 3rd treatment is given and despite this the patient remains hypoxic on room air at 88-92%. Departure - Departure Disposition: [address] [facility] DC/Xfer Clinical Impression: COPD exacerbation Condition: Fair
[2019-07-23 21:18] LABS: BASOPHILS # (AUTO) 0.1 10^3/uL (0.0-0.1); BASOPHILS % (AUTO) 1.3 %; EOSINOPHILS # (AUTO) 0.9 10^3/uL (0.0-0.7); EOSINOPHILS % (AUTO) 15.8 %; HGB - HEMOGLOBIN 14.3 g/dL (12.0-16.0); LYMPHOCYTES # (AUTO) 1.2 10^3/uL (1.5-3.5); LYMPHOCYTES % (AUTO) 22.1 %; MEAN CORPUSCULAR HEMOGLOBIN 33.4 pg (27.0-31.0); MEAN CORPUSCULAR HGB CONC 35.6 g/dL (32.0-36.0); MEAN CORPUSCULAR VOLUME 93.9 fL (81.0-99.0); MEAN PLATELET VOLUME 7.7 fL (7.9-10.8); MONOCYTES # (AUTO) 0.7 10^3/uL (0.0-1.0); MONOCYTES % (AUTO) 11.9 %; NEUTROPHILS # (AUTO) 2.7 10^3/uL (1.5-6.6); NEUTROPHILS % (AUTO) 48.7 %; PLT - PLATELET COUNT 186 10^3/uL (130-450); RED BLOOD COUNT 4.28 10^6/uL (4.20-5.40); RED CELL DISTRIBUTION WIDTH 11.6 % (12.0-15.0); WHITE BLOOD COUNT 5.6 x10^3/uL (4.8-10.8)
[2019-07-23 21:29] LABS: ALBUMIN 4.2 g/dL (3.2-5.5); ALBUMIN/GLOBULIN RATIO 1.4 (1.0-2.2); BILIRUBIN,TOTAL 0.5 mg/dL (0.2-1.0); CALCIUM 9.4 mg/dL (8.5-10.3); CREATININE 0.6 mg/dL (0.4-1.0); TOTAL PROTEIN 7.3 g/dL (6.7-8.2)
[2019-07-23] MEDS ORDERED: POTASSIUM CHLORIDE 20 MEQ TABLET PO STA (21:38)
--- NOTE | 2019-07-23 22:03 | XRAY Report ---
Reason: soa Procedure Date: 07/23/2019 Accession Number: [id number] / [id number] Procedure: XR - Chest 1 View X-Ray CPT Code: 86530 FULL RESULT: EXAM: CHEST RADIOGRAPHY EXAM DATE: 07/23/2019 09:40 PM. CLINICAL HISTORY: Shortness of breath. COMPARISON: CHEST 1 VIEW 07/28/2018 2:28 PM. TECHNIQUE: 1 view. FINDINGS: Lungs/Pleura: Hyperinflated lungs with coarse markings. No infiltrates. No pleural effusions or pneumothorax. Mediastinum: Heart size within normal limits. No pulmonary vascular congestion. Osseous structures: No significant focal osseous lesions. IMPRESSION: 1. No acute cardiopulmonary process identified radiographically. 2. Hyperinflated lungs with coarse markings suggestive of COPD. RADIA
[2019-07-23] MEDS ORDERED: IPRATROPIUM/ALBUTEROL 3 ML NEB INH STA (22:17)
[2019-07-24] MEDS ORDERED: AZITHROMYCIN 250 MG TABLET PO STA (00:48)
--- NOTE | 2019-07-24 00:54 | HISTORY & PHYSICAL EXAMINATION ---
Chief Complaint - Chief Complaint Chief Complaint: dyspnea and hypoxia History of Present Illness - Admitted From Admitted From:: [facility] ED - History Obtained From Records Reviewed: yes History obtained from: patient - History of Present Illness HPI Comment/Other: Patient seen on 07/24/19 at 01:00am Patient is a 74 y/o female who presented to the ED with complain of dyspnea which is worse with exertion. It has been progressively worse for the past 2 weeks. She has also been experiencing a nonproductive cough. She was around a friend who has an URI 2 weeks ago. She denies any previous occurrence. She has an inhaler which she has been using about every 2 hours with no relief. In the ED she was hypoxic with and O2Sat of about 88%. She does not use oxygen at home. She was given several breathing treatments in the ED with no relief. He respiratory status and oxygenation appeared to worsen with ambulation. As a result she was presented for admission. 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 She drinks a couple glasses of wine daily. She denies any illicit drug use - POLST Patient has POLST: No POLST Status: Full Code Meds/Allgy - Home Medications Home Medications: Ambulatory Orders Medication Instructions Recorded Confirmed Acetaminophen [Pain Relief] 1,000 mg PO BID PRN 06/04/13 07/23/19 Aspirin EC [Ecotrin] 81 mg PO DAILY 06/04/13 07/23/19 Lisinopril [Prinivil] 20 mg PO BID 06/04/13 07/23/19 Metoprolol Succinate [Toprol Xl] 25 mg PO BID 06/04/13 07/23/19 amLODIPine [Norvasc] 5 mg PO DAILY 07/26/18 07/23/19 Albuterol Sulf [Ventolin Hfa 1 - 2 puffs INH Q4HR PRN #1 inhaler 07/28/18 07/23/19 Inhaler] - Allergies Allergies/Adverse Reactions: Allergies Allergy/AdvReac Type Severity Reaction Status Date / Time venom-honey bee Allergy Severe Respiratory Verified 07/28/18 14:19 [bee venom (honey bee)] codeine [Codeine] Allergy Rash Verified 07/28/18 14:19 meperidine HCl * Allergy Emesis Verified 07/28/18 14:19 [From Demerol] Penicillins Allergy Rash Verified 07/28/18 14:19 tetracycline [Tetracycline] Allergy Rash Verified 07/28/18 14:19 Review of Systems - Constitutional Constitutional: denies: Fever, Weakness - Eyes Eyes: denies: Blurred vision, Vision loss, Dipolpia - Ears, Nose & Throat Ears, Nose & Throat: denies: Vertigo, Nasal pain, Sore throat - Cardiovascular Cariovascular: denies: Irregular heart rate, Chest pain, Edema - Respiratory Respiratory: reports: Cough, Wheezing, SOB at rest, SOB with exertion. denies: Sputum production - Gastrointestinal Gastrointestinal: denies: Abdominal pain, Abdominal distention, Diarrhea, Nausea, Vomiting, Coffee grounds emesis, Reflux/heartburn - Genitourinary Genitourinary: denies: Dysuria, Frequency, Urgency, Hematuria, Incontinence - Musculoskeletal Musculoskeletal: denies: Back pain - Integumentary Integumentary: denies: Rash, Dryness - Neurological Neurological: denies: General weakness, Focal weakness, Headache, Dizziness - Psychiatric Psychiatric: denies: Depression, Anxiety - Endocrine Endocrine: denies: Polyuria, Polydypsia - Hematologic/Lymphatic Hematologic/Lymphatic: denies: Anemia, Petechiae Prior Level of Functionality: Patient is independent of activities of daily Exam - Vital Signs Vital Signs: Vital Signs x48h Temp Pulse Resp BP Pulse Ox 07/24/19 00:03 71 15 132/73 H 92 07/24/19 00:02 88 L 07/23/19 23:33 80 13 07/23/19 23:00 70 14 115/73 94 07/23/19 22:27 67 18 07/23/19 21:25 66 17 124/81 H 97 07/23/19 21:19 66 15 10/23/19 20:36 90 24 102/76 95 07/23/19 20:28 36.6 C 82 24 134/81 H 95 - Physical Exam General Appearance: positive: Alert, Mild distress Eyes Bilateral: positive: Normal inspection, PERRL, EOMI ENT: positive: ENT inspection nml, No signs of dehydration Neck: positive: Nml inspection, No JVD, Trachea midline Respiratory: positive: Chest non-tender, Wheezes, Other (decreased air movement on auscultation). negative: No respiratory distress, Breath sounds nml, Rales, Rhonchi Cardiovascular: negative: Regular rate & rhythm, No murmur Abdomen: positive: Non-tender, No distention. negative: Guarding, Rebound Back: positive: Nml inspection Skin: positive: Color nml, No rash, Warm, Dry Extremities: positive: Non-tender, Full ROM, Nml appearance, No pedal edema Neurologic/Psychiatric: positive: Oriented x3, CN's nml (2-12), Motor nml, Sensation nml Conclusion/Plan - Problem List (1) COPD exacerbation Conclusion/Plan: Duoneb q4hrs prn Solumedrol 125mg IV bid Oxygen via nasal canula Zpak (2) Hypertension Conclusion/Plan: On lisinopril, amlodipine and metoprolol (3) Hypokalemia Conclusion/Plan: Will replace and recheck Will also check Magnesium - Lab Results Fish Bones: 07/24/19 04:20 07/24/19 04:20 Core Measures - Anticipated LOS I expect patient to be DC'd or transferred within 96 hours.: Yes - DVT/VTE - Prophylaxis VTE/DVT Device ordered at admit?: Yes VTE/DVT Prophylaxis med ordered at admit?: Yes
[2019-07-24] MEDS: SODIUM CHLORIDE FLUSH 0.9% 10 ML SYRINGE IVP SCH ×3 (01:53→16:01)
[2019-07-24] MEDS ORDERED: AZITHROMYCIN 250 MG TABLET PO ONE (02:06)
[2019-07-24] MEDS: traZODone 50 MG TABLET PO PRN (02:31)
[2019-07-24] MEDS: BENZONATATE 100 MG CAPSULE PO PRN ×3 (02:31→19:10)
[2019-07-24] MEDS: IPRATROPIUM/ALBUTEROL 3 ML NEB INH PRN ×5 (02:35→17:55)
[2019-07-24 05:04] LABS: BASOPHILS % (AUTO) 0.7 %; EOSINOPHILS # (AUTO) 0.1 10^3/uL (0.0-0.7); EOSINOPHILS % (AUTO) 1.6 %; HGB - HEMOGLOBIN 13.3 g/dL (12.0-16.0); LYMPHOCYTES # (AUTO) 0.3 10^3/uL (1.5-3.5); LYMPHOCYTES % (AUTO) 8.5 %; MEAN CORPUSCULAR HEMOGLOBIN 32.9 pg (27.0-31.0); MEAN CORPUSCULAR HGB CONC 35.1 g/dL (32.0-36.0); MEAN CORPUSCULAR VOLUME 93.8 fL (81.0-99.0); MEAN PLATELET VOLUME 8.2 fL (7.9-10.8); MONOCYTES # (AUTO) 0.1 10^3/uL (0.0-1.0); MONOCYTES % (AUTO) 1.6 %; NEUTROPHILS # (AUTO) 2.7 10^3/uL (1.5-6.6); NEUTROPHILS % (AUTO) 86.9 %; PLT - PLATELET COUNT 182 10^3/uL (130-450); RED BLOOD COUNT 4.04 10^6/uL (4.20-5.40); RED CELL DISTRIBUTION WIDTH 11.5 % (12.0-15.0); WHITE BLOOD COUNT 3.1 x10^3/uL (4.8-10.8)
[2019-07-24 05:11] LABS: CALCIUM 9.3 mg/dL (8.5-10.3); CREATININE 0.7 mg/dL (0.4-1.0)
[2019-07-24] MEDS ORDERED: SODIUM CHLORIDE 0.9% 1,000 ML IV SCH ×2 (07:00→07:30)
[2019-07-24] MEDS ORDERED: POTASSIUM CHLORIDE 20 MEQ TABLET PO ONE (07:30)
[2019-07-24 08:26] LABS: ABG PH 7.46 (7.35-7.45)
[2019-07-24 08:27] LABS: ABG HCO3 21.4 mmol/L (22.0-26.0); ABG OXYGEN SATURATION 97 % (94-98); ABG PCO2 30 mmHg (34-45); ABG PO2 87 mmHg (80-100); ALLEN TEST POSITIVE
[2019-07-24] MEDS: POLYETHYLENE GLYCOL 3350 17 GM PACKET PO SCH (09:05)
[2019-07-24] MEDS: ENOXAPARIN 40 MG/0.4 ML SYRINGE SUBQ SCH (09:08)
[2019-07-24] MEDS: methylPREDNISolone SUCCINATE 125 MG/2 ML VIAL IVP SCH ×2 (09:08→20:25)
[2019-07-24] MEDS: guaiFENesin 600 MG TABLET PO SCH ×2 (09:08→20:25)
[2019-07-24] MEDS: SODIUM CHLORIDE 0.9% 1,000 ML IV SCH ×2 (09:09→20:08)
[2019-07-24] MEDS: BUDESONIDE 0.5 MG/2 ML NEB INH SCH ×2 (09:43→21:02)
--- NOTE | 2019-07-24 11:16 | PROVIDER PROGRESS NOTE ---
Assessment/Plan - Problem List (1) COPD exacerbation Assessment/Plan: slight improved per pt report. but pt still present significant crackles with wheezing on bilateral lung, cough with yellow sputum. pt has 96% sats on 2.5 liter of O2. continue Solumedrol 125mg IV bid today, will wane gradually off per clinic presentation continue Duoneb PRN add pulmocort add cough meds mucnix, continue Tessalor sputum culture continue Zpak (2) Hypertension Conclusion/Plan: stable, will reconcile her home meds metoprolol now, and lisinopril, amlodipine (3) Hypokalemia Conclusion/Plan: replaced, will have lab recheck - Current Meds Current Meds: Current Medications Generic Name Dose Route Start Last Admin Trade Name Freq PRN Reason Stop Dose Admin Albuterol/Ipratropium 3 ml 07/24/19 06:27 07/24/19 09:43 Duoneb INH 3 ml Q2HR PRN Administration Wheezing Benzonatate 100 mg 07/24/19 01:41 07/24/19 09:14 Tessalon PO 100 mg TID PRN Administration Cough Budesonide 0.5 mg 07/24/19 09:00 07/24/19 09:43 Pulmicort INH 0.5 mg RTBID JOAQUIN Administration Enoxaparin Sodium 40 mg 07/24/19 09:00 07/24/19 09:08 Lovenox SUBQ 40 mg DAILY JOAQUIN Administration Guaifenesin 600 mg 07/24/19 09:00 07/24/19 09:08 Mucinex PO 600 mg BID JOAQUIN Administration Sodium Chloride 1,000 mls @ 75 mls/hr 07/24/19 07:37 07/24/19 09:09 Normal Saline 0.9% IV 75 mls/hr .[id number] JOAQUIN Administration Methylprednisolone Sodium Succinate 125 mg 07/24/19 09:00 07/24/19 09:08 Solu-Medrol (125mg Vial) IVP 125 mg BID JOAQUIN Administration Polyethylene Glycol 17 gm 07/24/19 09:00 07/24/19 09:05 Miralax PO Not Given DAILY JOAQUIN Sodium Chloride 10 ml 07/24/19 01:00 07/24/19 09:09 Normal Saline Flush 0.9% IVP 10 ml 0100,0900,1700 JOAQUIN Administration Trazodone HCl 50 mg 07/24/19 02:10 07/24/19 02:31 Desyrel PO 50 mg QPM PRN Administration Insomnia - Lab Result Fish Bone Diagrams: 07/24/19 04:20 07/24/19 04:20 - Additional Planning My Orders: My Active Orders 07/24/19 07:37 Sodium Chloride 0.9% [Normal Saline 0.9%] 1,000 ml IV 75 mls/hr 07/24/19 07:38 Resp Teach Nebulizer/MDI [RC] .ONCE Albuterol 2.5 mg INH RTQ4H PRN 07/24/19 08:07 Nebulizer/MDI Tx. [RC] QID Resp Teach Nebulizer/MDI [RC] .ONCE 07/24/19 09:00 Budesonide [Pulmicort] 0.5 mg INH RTBID guaiFENesin [Mucinex] 600 mg PO BID 07/24/19 09:45 CUL, RESPIRATORY [RM] Urgent Subjective - Subjective Patient Reports: Feeling Better Objective Vital Signs: Vital Signs - 24 hr 07/23/19 07/23/19 07/23/19 20:28 20:36 21:19 Temperature 36.6 C Heart Rate 82 90 66 Heart Rate [ Brachial] Heart Rate [ Monitoring electrodes] Respiratory 24 24 15 Rate Blood Pressure 134/81 H 102/76 Blood Pressure [Right Brachial artery] O2 Saturation 95 95 07/23/19 07/23/19 07/23/19 21:25 22:27 23:00 Temperature Heart Rate 66 67 70 Heart Rate [ Brachial] Heart Rate [ Monitoring electrodes] Respiratory 17 18 14 Rate Blood Pressure 124/81 H 115/73 Blood Pressure [Right Brachial artery] O2 Saturation 97 94 07/23/19 07/24/19 07/24/19 23:33 00:02 00:03 Temperature Heart Rate 80 71 Heart Rate [ Brachial] Heart Rate [ Monitoring electrodes] Respiratory 13 15 Rate Blood Pressure 132/73 H Blood Pressure [Right Brachial artery] O2 Saturation 88 L 92 07/24/19 07/24/19 07/24/19 01:30 02:01 02:42 Temperature 36.5 C Heart Rate 69 78 Heart Rate [ 77 Brachial] Heart Rate [ Monitoring electrodes] Respiratory 17 20 20 Rate Blood Pressure 114/68 Blood Pressure 124/71 [Right Brachial artery] O2 Saturation 92 99 07/24/19 07/24/19 07/24/19 05:34 05:39 08:00 Temperature 36.9 C 36.5 C Heart Rate 88 Heart Rate [ Brachial] Heart Rate [ 88 98 Monitoring electrodes] Respiratory 16 20 24 Rate Blood Pressure Blood Pressure 131/95 H 119/64 [Right Brachial artery] O2 Saturation 95 96 07/24/19 07/24/19 09:48 09:56 Temperature 36.5 C Heart Rate 88 87 Heart Rate [ Brachial] Heart Rate [ Monitoring electrodes] Respiratory 20 20 Rate Blood Pressure Blood Pressure [Right Brachial artery] O2 Saturation 96 Oxygen O2 Source Nasal cannula I&O (Last 24 Hrs): Intake and Output Totals x24h 07/22/19 07/23/19 07/24/19 23:59 23:59 23:59 Intake Total 100 878.33 Output Total 750 Balance 100 128.33 General: Alert, Oriented x3, Mild distress HEENT: Atraumatic Neck: Supple Lymphatic: no adenopathy Neuro: Alert, Non Focal, Oriented Times 3 Cardiovascular: Regular rate, No murmurs Respiratory: Wheezes, Rhonchi Abdomen: Normal bowel sounds Extremities: No clubbing - Results Results: Laboratory Results WBC 3.1 x10^3/uL (4.8-10.8) L 07/24/19 04:20 RBC 4.04 10^6/uL (4.20-5.40) L 07/24/19 04:20 Hgb 13.3 g/dL (12.0-16.0) 07/24/19 04:20 Hct 37.9 % (37.0-47.0) 07/24/19 04:20 MCV 93.8 fL (81.0-99.0) 07/24/19 04:20 MCH 32.9 pg (27.0-31.0) H 07/24/19 04:20 MCHC 35.1 g/dL (32.0-36.0) 07/24/19 04:20 RDW 11.5 % (12.0-15.0) L 07/24/19 04:20 Plt Count 182 10^3/uL (130-450) 07/24/19 04:20 MPV 8.2 fL (7.9-10.8) 07/24/19 04:20 Neut # (Auto) 2.7 10^3/uL (1.5-6.6) 07/24/19 04:20 Lymph # (Auto) 0.3 10^3/uL (1.5-3.5) L 07/24/19 04:20 [place] # (Auto) 0.1 10^3/uL (0.0-1.0) 07/24/19 04:20 Eos # (Auto) 0.1 10^3/uL (0.0-0.7) 07/24/19 04:20 Baso # (Auto) 0.0 10^3/uL (0.0-0.1) 07/24/19 04:20 Absolute Nucleated RBC 0.00 x10^3/uL 07/24/19 04:20 Nucleated RBC % 0.0 /100WBC 07/24/19 04:20 Bld Gas Analysis Time 0812 07/24/19 08:12 Sample Site RIGHT RADIAL 07/24/19 08:12 ABG pH 7.46 (7.35-7.45) H 07/24/19 08:12 ABG pCO2 30 mmHg (34-45) L 07/24/19 08:12 ABG pO2 87 mmHg (80-100) 07/24/19 08:12 ABG HCO3 21.4 mmol/L (22.0-26.0) L 07/24/19 08:12 ABG Total CO2 22.0 MMOL/L (21.0-29.0) 07/24/19 08:12 ABG O2 Saturation 97 % (94-98) 07/24/19 08:12 ABG Base Excess -2.0 mmol/L (-2.0-3.0) 07/24/19 08:12 Jd Test POSITIVE 07/24/19 08:12 O2 Delivery Device NASAL CANNULA 07/24/19 08:12 O2 Liters/Min 2.50 LPM 07/24/19 08:12 Sodium 133 mmol/L (135-145) L 07/24/19 04:20 Potassium 3.1 mmol/L (3.5-5.0) L 07/24/19 04:20 Chloride 95 mmol/L (101-111) L 07/24/19 04:20 Carbon Dioxide 25 mmol/L (21-32) 07/24/19 04:20 Anion Gap 13.0 (6-13) 07/24/19 04:20 BUN 12 mg/dL (6-20) 07/24/19 04:20 Creatinine 0.7 mg/dL (0.4-1.0) 07/24/19 04:20 Estimated GFR (MDRD) 82 (>89) L 07/24/19 04:20 Glucose 185 mg/dL (70-100) H 07/24/19 04:20 Calcium 9.3 mg/dL (8.5-10.3) 07/24/19 04:20 Magnesium 1.8 mg/dL (1.7-2.8) 07/24/19 04:20 Total Bilirubin 0.5 mg/dL (0.2-1.0) 07/23/19 21:13 AST 21 IU/L (10-42) 07/23/19 21:13 ALT 20 IU/L (10-60) 07/23/19 21:13 Alkaline Phosphatase 63 IU/L (42-121) 07/23/19 21:13 Total Protein 7.3 g/dL (6.7-8.2) 07/23/19 21:13 Albumin 4.2 g/dL (3.2-5.5) 07/23/19 21:13 Globulin 3.1 g/dL (2.1-4.2) 07/23/19 21:13 Albumin/Globulin Ratio 1.4 (1.0-2.2) 07/23/19 21:13 Lipase 40 U/L (22-51) 07/23/19 21:13 - Procedures Procedures: Procedures TOTAL HIP REPLACEMENT (06/10/13) Sepsis Event Note (H) - Evaluation Current Stage of Sepsis: Ruled out ABX Reporting Has patient been on IV antibiotics over the past 48 hours?: No Current Medications - Current Medications Current Medications: Active Medications Albuterol () 2.5 mg INH RTQ4H PRN PRN Reason: Wheezing Albuterol/Ipratropium (Duoneb) 3 ml INH Q2HR PRN PRN Reason: Wheezing Last Admin: 07/24/19 09:43 Dose: 3 ml Azithromycin (Zithromax) 250 mg PO HS JOAQUIN Stop: 07/28/19 21:01 Benzonatate (Tessalon) 100 mg PO TID PRN PRN Reason: Cough Last Admin: 07/24/19 09:14 Dose: 100 mg Budesonide (Pulmicort) 0.5 mg INH RTBID [facility] Last Admin: 07/24/19 09:43 Dose: 0.5 mg Enoxaparin Sodium (Lovenox) 40 mg SUBQ DAILY [facility] Last Admin: 07/24/19 09:08 Dose: 40 mg Guaifenesin (Mucinex) 600 mg PO BID [facility] Last Admin: 07/24/19 09:08 Dose: 600 mg Sodium Chloride (Normal Saline 0.9%) 1,000 mls @ 75 mls/hr IV .[id number] [facility] Last Admin: 07/24/19 09:09 Dose: 75 mls/hr Methylprednisolone Sodium Succinate (Solu-Medrol (125mg Vial)) 125 mg IVP BID [facility] Last Admin: 07/24/19 09:08 Dose: 125 mg Polyethylene Glycol (Miralax) 17 gm PO DAILY [facility] Last Admin: 07/24/19 09:05 Dose: Not Given Sodium Chloride (Normal Saline Flush 0.9%) 10 ml IVP PRN PRN PRN Reason: NEEDED PER PROVIDER ORDERS Sodium Chloride (Normal Saline Flush 0.9%) 10 ml IVP 0100,0900,1700 [facility] Last Admin: 07/24/19 09:09 Dose: 10 ml Trazodone HCl (Desyrel) 50 mg PO QPM PRN PRN Reason: Insomnia Last Admin: 07/24/19 02:31 Dose: 50 mg Acetaminophen [Pain Relief] 1,000 mg PO BID PRN 06/04/13 Aspirin EC [Ecotrin] 81 mg PO DAILY 06/04/13 Lisinopril [Prinivil] 20 mg PO BID 06/04/13 Amlodipine Besylate [Norvasc] 10 mg PO DAILY 07/24/19 Metoprolol Tartrate [Lopressor] 25 mg PO BID 07/24/19 Tiotropium Br/Olodaterol HCl [Stiolto Respimat Inhal [place]] 1 puffs INH DAILY 07/24/19
[2019-07-24] MEDS: ALBUTEROL NEB 2.5 MG/3 ML INH PRN ×3 (12:10→21:04)
[2019-07-24] MEDS: METOPROLOL TARTRATE 25 MG TABLET PO SCH ×2 (14:53→20:25)
[2019-07-24] MEDS ORDERED: MORPHINE 2 MG/ML CARPUJECT IVP PRN (17:16)
[2019-07-24] MEDS: SODIUM CHLORIDE FLUSH 0.9% 10 ML SYRINGE IVP PRN (17:34)
[2019-07-25] MEDS: IPRATROPIUM/ALBUTEROL 3 ML NEB INH PRN ×4 (04:46→20:16)
[2019-07-25] MEDS: SODIUM CHLORIDE FLUSH 0.9% 10 ML SYRINGE IVP SCH ×3 (04:56→15:54)
[2019-07-25 05:21] LABS: BASOPHILS % (AUTO) 0.1 %; HGB - HEMOGLOBIN 12.7 g/dL (12.0-16.0); LYMPHOCYTES % (AUTO) 4.6 %; MEAN CORPUSCULAR HEMOGLOBIN 33.5 pg (27.0-31.0); MEAN CORPUSCULAR HGB CONC 34.6 g/dL (32.0-36.0); MEAN CORPUSCULAR VOLUME 96.8 fL (81.0-99.0); MEAN PLATELET VOLUME 8.1 fL (7.9-10.8); MONOCYTES % (AUTO) 3.6 %; NEUTROPHILS % (AUTO) 90.9 %; PLT - PLATELET COUNT 177 10^3/uL (130-450); RED BLOOD COUNT 3.79 10^6/uL (4.20-5.40); RED CELL DISTRIBUTION WIDTH 12.1 % (12.0-15.0); WHITE BLOOD COUNT 9.9 x10^3/uL (4.8-10.8)
[2019-07-25 05:28] LABS: CALCIUM 9.2 mg/dL (8.5-10.3); CREATININE 0.6 mg/dL (0.4-1.0)
[2019-07-25 05:41] LABS: ABNORMAL LYMPHS % (MANUAL) 0 %
[2019-07-25 06:02] LABS: BAND NEUTROPHILS % (MANUAL) 5 %; DIFFERENTIAL COMMENT MANUAL DIFFERENTIAL; LYMPHOCYTES # (MANUAL) 0.4 10^3/uL (1.5-3.5); LYMPHOCYTES % (MANUAL) 4 %; MONOCYTES # (MANUAL) 0.3 10^3/uL (0.0-1.0); PLATELET ESTIMATE, MANUAL NORMAL (130-450,000) (NORMAL); RBC MORPHOLOGY (MULTIPLE) NORMAL APPEARANCE (NORMAL)
[2019-07-25] MEDS: guaiFENesin/DEXTROMETHORPHAN 10 ML UDC PO PRN (07:59)
[2019-07-25] MEDS: methylPREDNISolone SUCCINATE 125 MG/2 ML VIAL IVP SCH (07:59)
[2019-07-25] MEDS: ASPIRIN EC 81 MG TABLET PO SCH (08:00)
[2019-07-25] MEDS: guaiFENesin 600 MG TABLET PO SCH ×2 (08:00→21:37)
[2019-07-25] MEDS: MULTIVITAMIN W/MINERALS TABLET PO SCH (08:00)
[2019-07-25] MEDS: METOPROLOL TARTRATE 25 MG TABLET PO SCH ×2 (08:00→21:38)
[2019-07-25] MEDS: ENOXAPARIN 40 MG/0.4 ML SYRINGE SUBQ SCH (08:01)
[2019-07-25] MEDS: POLYETHYLENE GLYCOL 3350 17 GM PACKET PO SCH (08:01)
[2019-07-25] MEDS ORDERED: IOVERSOL 320 100 ML VIAL IVP ONE ×2 (08:56→09:37)
[2019-07-25] MEDS ORDERED: cefTRIAXone 1 GM VIAL IV SCH (09:00)
[2019-07-25] MEDS: cefTRIAXone 1 GM in SODIUM CHLORIDE 0.9% MINIBAG 100 ML IV SCH (09:58)
[2019-07-25] MEDS: BUDESONIDE 0.5 MG/2 ML NEB INH SCH ×2 (10:37→20:16)
--- NOTE | 2019-07-25 11:50 | CT Report ---
Reason: consistent cough, SOB, long hx of smoker Procedure Date: 07/25/2019 Accession Number: [id number] / [id number] Procedure: CT - CHEST W/WO CPT Code: FULL RESULT: EXAM: CT CHEST EXAM DATE: 07/25/2019 09:36 AM. CLINICAL HISTORY: Consistent cough, SOB, long hx of smoker. COMPARISONS: CHEST W/ 07/28/2018 4:48 PM. TECHNIQUE: Routine helical CT imaging was performed through the chest. IV contrast: 80 mL Omnipaque 320. Reconstructions: Coronal and sagittal. In accordance with CT protocol optimization, one or more of the following dose reduction techniques were utilized for this exam: automated exposure control, adjustment of mA and/or KV based on patient size, or use of iterative reconstructive technique. FINDINGS: Lungs/Pleura: No significant change in mild to moderate emphysematous changes throughout the upper lungs. No significant change in collapse of the left lower lobe. No new areas of consolidation or developing lung masses detected. No pleural fluid collections. Mediastinum: Surgical clips at the left hilum. No pathologically enlarged lymph nodes. No cardiomegaly. Bones: Unremarkable for age. Visualized Abdomen: No adrenal masses. Nothing acute. Other: None. IMPRESSION: Stable exam. Stable appearance of left lower lobe collapse and moderate emphysematous changes of the lungs. No developing lung masses identified. RADIA
[2019-07-25] MEDS: ACETAMINOPHEN 325 MG TABLET PO PRN (12:16)
[2019-07-25] MEDS: ALBUTEROL NEB 2.5 MG/3 ML INH PRN (13:22)
--- NOTE | 2019-07-25 13:40 | PROVIDER PROGRESS NOTE ---
Assessment/Plan - Problem List (1) COPD exacerbation Assessment/Plan: 07/25 slight improved, pt still need 2.5% to have 94% sats, pt still present cough, SOB in exertion, lung sound still present crackles and wheezing in bilateral of whole area of lung. pt has long hx and current cigarette smoker. Influz A and B were negative. order CT of check, will followup continue Solumedrol 125mg IV bid today, will wane gradually off per clinic presentation continue Duoneb PRN add pulmocort add cough meds mucnix, continue Tessalor sputum culture reveals many gram positive cocci, and left shift neutrophils, add Rocephin and continue Azithyomycin slight improved per pt report. but pt still present significant crackles with wheezing on bilateral lung, cough with yellow sputum. pt has 96% sats on 2.5 liter of O2. continue Solumedrol 125mg IV bid today, will wane gradually off per clinic presentation continue Duoneb PRN add pulmocort add cough meds mucnix, continue Tessalor sputum culture continue Zpak (2) Hypertension Conclusion/Plan: stable, will reconcile her home meds metoprolol now, and lisinopril, amlodipine (3) Hypokalemia Conclusion/Plan: 07/25 resolved. replaced, will have lab recheck (4) current smoker pt report she still smoke with cigarette and advise pt quit - Current Meds Current Meds: Current Medications Generic Name Dose Route Start Last Admin Trade Name Freq PRN Reason Stop Dose Admin Acetaminophen 650 mg 07/25/19 11:40 07/25/19 12:16 Tylenol PO 650 mg Q4HR PRN Administration Pain or Fever > 38C (100.4F) Albuterol 2.5 mg 07/24/19 07:38 07/25/19 13:22 INH 2.5 mg RTQ4H PRN Administration Wheezing Albuterol/Ipratropium 3 ml 07/24/19 06:27 07/25/19 10:37 Duoneb INH 3 ml Q2HR PRN Administration Wheezing Aspirin 81 mg 07/25/19 09:00 07/25/19 08:00 Ecotrin PO 81 mg DAILY JOAQUIN Administration Benzonatate 100 mg 07/24/19 01:41 07/24/19 19:10 Tessalon PO 100 mg TID PRN Administration Cough Budesonide 0.5 mg 07/24/19 09:00 07/25/19 10:37 Pulmicort INH 0.5 mg RTBID JOAQUIN Administration Enoxaparin Sodium 40 mg 07/24/19 09:00 07/25/19 08:01 Lovenox SUBQ 40 mg DAILY JOAQUIN Administration Guaifenesin 600 mg 07/24/19 09:00 07/25/19 08:00 Mucinex PO 600 mg BID JOAQUIN Administration Guaifenesin 10 ml 07/24/19 18:55 07/25/19 07:59 Robitussin Dm PO 10 ml Q6HR PRN Administration Cough Ceftriaxone Sodium 1 gm/ 100 mls @ 200 mls/hr 07/25/19 09:00 07/25/19 10:39 Sodium Chloride IV Infused DAILY JOAQUIN Infusion Metoprolol Tartrate 25 mg 07/24/19 12:00 07/25/19 08:00 Lopressor PO 25 mg BID JOAQUIN Administration Multivitamins/Minerals 1 tab 07/25/19 08:00 07/25/19 08:00 Theragran M PO 1 tab DAILYWM JOAQUIN Administration Polyethylene Glycol 17 gm 07/24/19 09:00 07/25/19 08:01 Miralax PO Not Given DAILY JOAQUIN Sodium Chloride 10 ml 07/24/19 00:28 07/24/19 17:34 Normal Saline Flush 0.9% IVP 10 ml PRN PRN Administration NEEDED PER PROVIDER ORDERS Sodium Chloride 10 ml 07/24/19 01:00 07/25/19 08:00 Normal Saline Flush 0.9% IVP 10 ml 0100,0900,1700 JOAQUIN Administration Trazodone HCl 50 mg 07/24/19 02:10 07/24/19 02:31 Desyrel PO 50 mg QPM PRN Administration Insomnia - Lab Result Fish Bone Diagrams: 07/25/19 04:40 07/25/19 04:40 - Additional Planning My Orders: My Active Orders 07/24/19 18:55 guaiFENesin/DEXTROMETHORPHAN [Robitussin Dm] 10 ml PO Q6HR PRN 07/24/19 Dinner Regular Diet [DIET] 07/25/19 08:00 Multivitamin W/Minerals [Theragran M] 1 tab PO DAILYWM 07/25/19 09:00 Aspirin EC [Ecotrin] 81 mg PO DAILY cefTRIAXone [Rocephin] 1 gm Sodium Chloride 0.9% Minibag [Normal Saline 0.9% Minibag] 100 ml IV DAILY 07/25/19 11:40 Acetaminophen [Tylenol] 650 mg PO Q4HR PRN 07/25/19 13:30 Incentive Spirometry - RT [RC] TID 07/25/19 14:00 methylPREDNISolone SUCCINATE [SOLU-Medrol (40MG VIAL)] 80 mg IVP TID Subjective - Subjective Patient Reports: Feeling Better Objective Vital Signs: Vital Signs - 24 hr 07/24/19 07/24/19 07/24/19 14:53 15:04 15:34 Temperature 36.5 C Heart Rate 90 Heart Rate [ Brachial] Heart Rate [ 86 Monitoring electrodes] Respiratory 20 20 Rate Blood Pressure 123/67 Blood Pressure 114/56 L [Right Brachial artery] O2 Saturation 96 07/24/19 07/24/19 07/24/19 17:56 20:21 20:25 Temperature 36.7 C Heart Rate 79 Heart Rate [ Brachial] Heart Rate [ 79 Monitoring electrodes] Respiratory 20 20 Rate Blood Pressure 112/66 Blood Pressure 120/69 [Right Brachial artery] O2 Saturation 93 07/24/19 07/24/19 07/25/19 21:01 23:33 04:47 Temperature 37.1 C Heart Rate 80 101 H Heart Rate [ Brachial] Heart Rate [ 74 Monitoring electrodes] Respiratory 18 17 24 Rate Blood Pressure Blood Pressure 113/61 [Right Brachial artery] O2 Saturation 94 07/25/19 07/25/19 07/25/19 04:52 08:00 10:38 Temperature 36.7 C Heart Rate 63 Heart Rate [ 86 Brachial] Heart Rate [ 81 Monitoring electrodes] Respiratory 22 24 16 Rate Blood Pressure 108/63 Blood Pressure 128/65 108/63 [Right Brachial artery] O2 Saturation 94 90 L 07/25/19 13:22 Temperature Heart Rate 71 Heart Rate [ Brachial] Heart Rate [ Monitoring electrodes] Respiratory 18 Rate Blood Pressure Blood Pressure [Right Brachial artery] O2 Saturation Oxygen O2 Source Oxymask I&O (Last 24 Hrs): Intake and Output Totals x24h 07/23/19 07/24/19 07/25/19 23:59 23:59 23:59 Intake Total 100 2332.08 1490 Output Total 2150 1450 Balance 100 182.08 40 General: Alert, Mild distress HEENT: Atraumatic Neck: Supple Lymphatic: no adenopathy Neuro: Alert, Oriented Times 3 Cardiovascular: Regular rate, No murmurs Respiratory: Chest non-tender, Wheezes, Rhonchi Abdomen: Normal bowel sounds, Soft Skin: No rashes - Results Results: Laboratory Results WBC 9.9 x10^3/uL (4.8-10.8) 07/25/19 04:40 RBC 3.79 10^6/uL (4.20-5.40) L 07/25/19 04:40 Hgb 12.7 g/dL (12.0-16.0) 07/25/19 04:40 Hct 36.7 % (37.0-47.0) L 07/25/19 04:40 MCV 96.8 fL (81.0-99.0) 07/25/19 04:40 MCH 33.5 pg (27.0-31.0) H 07/25/19 04:40 MCHC 34.6 g/dL (32.0-36.0) 07/25/19 04:40 RDW 12.1 % (12.0-15.0) 07/25/19 04:40 Plt Count 177 10^3/uL (130-450) 07/25/19 04:40 MPV 8.1 fL (7.9-10.8) 07/25/19 04:40 Neut # (Auto) Not Reportable 07/25/19 04:40 Lymph # (Auto) Not Reportable 07/25/19 04:40 [place] # (Auto) Not Reportable 07/25/19 04:40 Eos # (Auto) Not Reportable 07/25/19 04:40 Baso # (Auto) Not Reportable 07/25/19 04:40 Absolute Nucleated RBC Not Reportable 07/25/19 04:40 Total Counted 100 07/25/19 04:40 Band Neuts % (Manual) 5 % (0-10) 07/25/19 04:40 Abnorm Lymph % (Manual) 0 % 07/25/19 04:40 Nucleated RBC % Not Reportable 07/25/19 04:40 Neutrophils # (Manual) 9.2 10^3/uL (1.5-6.6) H 07/25/19 04:40 Lymphocytes # (Manual) 0.4 10^3/uL (1.5-3.5) L 07/25/19 04:40 Monocytes # (Manual) 0.3 10^3/uL (0.0-1.0) 07/25/19 04:40 Eosinophils # (Manual) 0.0 10^3/uL (0-0.7) 07/25/19 04:40 Basophils # (Manual) 0.0 10^3/uL (0-0.1) 07/25/19 04:40 Differential Comment MANUAL DIFFERENTIAL 07/25/19 04:40 Platelet Estimate NORMAL (130-450,000) (NORMAL) 07/25/19 04:40 RBC Morph Micro Appear NORMAL APPEARANCE (NORMAL) 07/25/19 04:40 Bld Gas Analysis Time 0812 07/24/19 08:12 Sample Site RIGHT RADIAL 07/24/19 08:12 ABG pH 7.46 (7.35-7.45) H 07/24/19 08:12 ABG pCO2 30 mmHg (34-45) L 07/24/19 08:12 ABG pO2 87 mmHg (80-100) 07/24/19 08:12 ABG HCO3 21.4 mmol/L (22.0-26.0) L 07/24/19 08:12 ABG Total CO2 22.0 MMOL/L (21.0-29.0) 07/24/19 08:12 ABG O2 Saturation 97 % (94-98) 07/24/19 08:12 ABG Base Excess -2.0 mmol/L (-2.0-3.0) 07/24/19 08:12 Jd Test POSITIVE 07/24/19 08:12 O2 Delivery Device NASAL CANNULA 07/24/19 08:12 O2 Liters/Min 2.50 LPM 07/24/19 08:12 Sodium 137 mmol/L (135-145) 07/25/19 04:40 Potassium 3.8 mmol/L (3.5-5.0) 07/25/19 04:40 Chloride 103 mmol/L (101-111) 07/25/19 04:40 Carbon Dioxide 25 mmol/L (21-32) 07/25/19 04:40 Anion Gap 9.0 (6-13) 07/25/19 04:40 BUN 14 mg/dL (6-20) 07/25/19 04:40 Creatinine 0.6 mg/dL (0.4-1.0) 07/25/19 04:40 Estimated GFR (MDRD) 97 (>89) 07/25/19 04:40 Glucose 146 mg/dL (70-100) H 07/25/19 04:40 Calcium 9.2 mg/dL (8.5-10.3) 07/25/19 04:40 Magnesium 1.8 mg/dL (1.7-2.8) 07/24/19 04:20 Total Bilirubin 0.5 mg/dL (0.2-1.0) 07/23/19 21:13 AST 21 IU/L (10-42) 07/23/19 21:13 ALT 20 IU/L (10-60) 07/23/19 21:13 Alkaline Phosphatase 63 IU/L (42-121) 07/23/19 21:13 Total Protein 7.3 g/dL (6.7-8.2) 07/23/19 21:13 Albumin 4.2 g/dL (3.2-5.5) 07/23/19 21:13 Globulin 3.1 g/dL (2.1-4.2) 07/23/19 21:13 Albumin/Globulin Ratio 1.4 (1.0-2.2) 07/23/19 21:13 Lipase 40 U/L (22-51) 07/23/19 21:13 Influenza A (Rapid) Negative (Negative) 07/24/19 20:15 Influenza B (Rapid) Negative (Negative) 07/24/19 20:15 - Procedures Procedures: Procedures TOTAL HIP REPLACEMENT (06/10/13) Sepsis Event Note (H) - Evaluation Current Stage of Sepsis: Ruled out Current Medications - Current Medications Current Medications: Active Medications Acetaminophen (Tylenol) 650 mg PO Q4HR PRN PRN Reason: Pain or Fever > 38C (100.4F) Last Admin: 07/25/19 12:16 Dose: 650 mg Albuterol () 2.5 mg INH RTQ4H PRN PRN Reason: Wheezing Last Admin: 07/25/19 13:22 Dose: 2.5 mg Albuterol/Ipratropium (Duoneb) 3 ml INH Q2HR PRN PRN Reason: Wheezing Last Admin: 07/25/19 10:37 Dose: 3 ml Aspirin (Ecotrin) 81 mg PO DAILY [facility] Last Admin: 07/25/19 08:00 Dose: 81 mg Azithromycin (Zithromax) 250 mg PO HS [facility] Stop: 07/28/19 21:01 Benzonatate (Tessalon) 100 mg PO TID PRN PRN Reason: Cough Last Admin: 07/24/19 19:10 Dose: 100 mg Budesonide (Pulmicort) 0.5 mg INH RTBID [facility] Last Admin: 07/25/19 10:37 Dose: 0.5 mg Enoxaparin Sodium (Lovenox) 40 mg SUBQ DAILY [facility] Last Admin: 07/25/19 08:01 Dose: 40 mg Guaifenesin (Mucinex) 600 mg PO BID [facility] Last Admin: 07/25/19 08:00 Dose: 600 mg Guaifenesin (Robitussin Dm) 10 ml PO Q6HR PRN PRN Reason: Cough Last Admin: 07/25/19 07:59 Dose: 10 ml Ceftriaxone Sodium 1 gm/ (Sodium Chloride) 100 mls @ 200 mls/hr IV DAILY [facility] Last Infusion: 07/25/19 10:39 Dose: Infused Methylprednisolone (Solu-Medrol (40mg Vial)) 80 mg IVP TID [facility] Metoprolol Tartrate (Lopressor) 25 mg PO BID [facility] Last Admin: 07/25/19 08:00 Dose: 25 mg Multivitamins/Minerals (Theragran M) 1 tab PO DAILYWM [facility] Last Admin: 07/25/19 08:00 Dose: 1 tab Polyethylene Glycol (Miralax) 17 gm PO DAILY [facility] Last Admin: 07/25/19 08:01 Dose: Not Given Sodium Chloride (Normal Saline Flush 0.9%) 10 ml IVP PRN PRN PRN Reason: NEEDED PER PROVIDER ORDERS Last Admin: 07/24/19 17:34 Dose: 10 ml Sodium Chloride (Normal Saline Flush 0.9%) 10 ml IVP 0100,0900,1700 [facility] Last Admin: 07/25/19 08:00 Dose: 10 ml Trazodone HCl (Desyrel) 50 mg PO QPM PRN PRN Reason: Insomnia Last Admin: 07/24/19 02:31 Dose: 50 mg Acetaminophen [Pain Relief] 1,000 mg PO BID PRN 06/04/13 Aspirin EC [Ecotrin] 81 mg PO DAILY 06/04/13 Lisinopril [Prinivil] 20 mg PO BID 06/04/13 Amlodipine Besylate [Norvasc] 10 mg PO DAILY 07/24/19 Metoprolol Tartrate [Lopressor] 25 mg PO BID 07/24/19 Tiotropium Br/Olodaterol HCl [Stiolto Respimat Inhal [place]] 1 puffs INH DAILY 07/24/19
[2019-07-25] MEDS: methylPREDNISolone SUCCINATE 40 MG/ML VIAL IVP SCH ×2 (13:57→21:40)
--- NOTE | 2019-07-25 14:47 | ADVANCE CARE PLANNING NOTE ---
Advance Care Planning - Planning Encounter Date: 07/25/19 Time: 14:46 Purpose: advance care for pt Parties in Attendance: pt and me Decisional Capacity of the Patient: pt is alert and oriented plus three. she has full capacity to make her own medical decisions. - Diagnosis for Encounter (4) Bronchiectasis Qualifiers: Bronchiectasis type: with acute exacerbation Qualified Code(s): J47.1 - Bronchiectasis with (acute) exacerbation
[2019-07-25] MEDS: BENZONATATE 100 MG CAPSULE PO PRN (21:37)
[2019-07-25] MEDS: traZODone 50 MG TABLET PO PRN (21:37)
[2019-07-25] MEDS: AZITHROMYCIN 250 MG TABLET PO SCH (21:40)
[2019-07-26] MEDS: IPRATROPIUM/ALBUTEROL 3 ML NEB INH PRN ×4 (00:30→19:58)
[2019-07-26 04:49] LABS: BASOPHILS % (AUTO) 0.1 %; EOSINOPHILS % (AUTO) 0.1 %; HGB - HEMOGLOBIN 12.8 g/dL (12.0-16.0); LYMPHOCYTES # (AUTO) 0.4 10^3/uL (1.5-3.5); LYMPHOCYTES % (AUTO) 4.3 %; MEAN CORPUSCULAR HEMOGLOBIN 34.2 pg (27.0-31.0); MEAN CORPUSCULAR HGB CONC 35.4 g/dL (32.0-36.0); MEAN CORPUSCULAR VOLUME 96.8 fL (81.0-99.0); MEAN PLATELET VOLUME 7.7 fL (7.9-10.8); MONOCYTES # (AUTO) 0.3 10^3/uL (0.0-1.0); MONOCYTES % (AUTO) 3.5 %; NEUTROPHILS # (AUTO) 8.9 10^3/uL (1.5-6.6); NEUTROPHILS % (AUTO) 90.9 %; PLT - PLATELET COUNT 159 10^3/uL (130-450); RED BLOOD COUNT 3.74 10^6/uL (4.20-5.40); WHITE BLOOD COUNT 9.8 x10^3/uL (4.8-10.8)
[2019-07-26 04:59] LABS: CALCIUM 9.1 mg/dL (8.5-10.3); CREATININE 0.6 mg/dL (0.4-1.0)
[2019-07-26] MEDS: guaiFENesin/DEXTROMETHORPHAN 10 ML UDC PO PRN (05:17)
[2019-07-26] MEDS: methylPREDNISolone SUCCINATE 40 MG/ML VIAL IVP SCH ×3 (06:59→21:06)
[2019-07-26] MEDS: SODIUM CHLORIDE FLUSH 0.9% 10 ML SYRINGE IVP SCH ×3 (07:00→16:11)
[2019-07-26] MEDS: guaiFENesin 600 MG TABLET PO SCH ×2 (08:52→21:05)
[2019-07-26] MEDS: METOPROLOL TARTRATE 25 MG TABLET PO SCH ×2 (08:53→21:05)
[2019-07-26] MEDS: ENOXAPARIN 40 MG/0.4 ML SYRINGE SUBQ SCH (08:53)
[2019-07-26] MEDS: POLYETHYLENE GLYCOL 3350 17 GM PACKET PO SCH (08:53)
[2019-07-26] MEDS: MULTIVITAMIN W/MINERALS TABLET PO SCH (08:53)
[2019-07-26] MEDS: ASPIRIN EC 81 MG TABLET PO SCH (08:53)
[2019-07-26] MEDS: cefTRIAXone 1 GM in SODIUM CHLORIDE 0.9% MINIBAG 100 ML IV SCH (08:54)
[2019-07-26] MEDS: ALBUTEROL NEB 2.5 MG/3 ML INH PRN (10:15)
[2019-07-26] MEDS: BUDESONIDE 0.5 MG/2 ML NEB INH SCH ×2 (10:15→19:58)
--- NOTE | 2019-07-26 11:17 | PROVIDER PROGRESS NOTE ---
Assessment/Plan - Problem List (1) COPD exacerbation Assessment/Plan: She is still wheezy and rhoncherous, needs nebs, iv steroids and pulmonary toliet with Mucinex. Add Montelukast pill. (2) Respiratory failure with hypoxia Assessment/Plan: She is not normally on home O2. Continue supplemental O2 and treatment of COPD, bronchiectasis (3) Collapse of left lung Assessment/Plan: The CT chest shows a consolidated or collapsed lung in lower area, no mass was reported, to suggest a post-obstructive pneumonia Acapella ordered to improve the collapse. (4) Bronchiectasis Qualifiers: Bronchiectasis type: with acute exacerbation Qualified Code(s): J47.1 - Bronchiectasis with (acute) exacerbation Assessment/Plan: She has a wet and productive cough, consitent with bronchiectasis or acute bronchitis. Continue empiric iv antibiotics. (5) Hypokalemia Assessment/Plan: Replace K and follow BMP daily (6) Hypertension Assessment/Plan: She was on metoprolol, amlodipine and maximum dose lisinopril at home. She is only on metoprolol here and running blood pressures of 120/60. Will not restart her other medications until blood pressure is higher (7) Tobacco use Assessment/Plan: Nicotine patch ordered. (8) Cachexia Assessment/Plan: Her BMI is 18. Dental Insurance Coordinator saw her: she is choosy, increased protein and calories were advised and a nighttime snack. - Current Meds Current Meds: Current Medications Generic Name Dose Route Start Last Admin Trade Name Freq PRN Reason Stop Dose Admin Acetaminophen 650 mg 07/25/19 11:40 07/25/19 12:16 Tylenol PO 650 mg Q4HR PRN Administration Pain or Fever > 38C (100.4F) Albuterol 2.5 mg 07/24/19 07:38 07/26/19 10:15 INH 2.5 mg RTQ4H PRN Administration Wheezing Albuterol/Ipratropium 3 ml 07/24/19 06:27 07/26/19 05:22 Duoneb INH 3 ml Q2HR PRN Administration Wheezing Aspirin 81 mg 07/25/19 09:00 07/26/19 08:53 Ecotrin PO 81 mg DAILY JOAQUIN Administration Azithromycin 250 mg 07/25/19 21:00 07/25/19 21:40 Zithromax PO 07/28/19 21:01 250 mg HS JOAQUIN Administration Benzonatate 100 mg 07/24/19 01:41 07/25/19 21:37 Tessalon PO 100 mg TID PRN Administration Cough Budesonide 0.5 mg 07/24/19 09:00 07/26/19 10:15 Pulmicort INH 0.5 mg RTBID JOAQUIN Administration Enoxaparin Sodium 40 mg 07/24/19 09:00 07/26/19 08:53 Lovenox SUBQ 40 mg DAILY JOAQUIN Administration Guaifenesin 600 mg 07/24/19 09:00 07/26/19 08:52 Mucinex PO 600 mg BID JOAQUIN Administration Guaifenesin 10 ml 07/24/19 18:55 07/26/19 05:17 Robitussin Dm PO 10 ml Q6HR PRN Administration Cough Ceftriaxone Sodium 1 gm/ 100 mls @ 200 mls/hr 07/25/19 09:00 07/26/19 09:56 Sodium Chloride IV Infused DAILY JOAQUIN Infusion Methylprednisolone 80 mg 07/25/19 14:00 07/26/19 06:59 Solu-Medrol (40mg Vial) IVP 80 mg TID JOAQUIN Administration Metoprolol Tartrate 25 mg 07/24/19 12:00 07/26/19 08:53 Lopressor PO 25 mg BID JOAQUIN Administration Multivitamins/Minerals 1 tab 07/25/19 08:00 07/26/19 08:53 Theragran M PO 1 tab DAILYWM JOAQUIN Administration Polyethylene Glycol 17 gm 07/24/19 09:00 07/26/19 08:53 Miralax PO 17 gm DAILY JOAQUIN Administration Sodium Chloride 10 ml 07/24/19 00:28 07/24/19 17:34 Normal Saline Flush 0.9% IVP 10 ml PRN PRN Administration NEEDED PER PROVIDER ORDERS Sodium Chloride 10 ml 07/24/19 01:00 07/26/19 08:54 Normal Saline Flush 0.9% IVP 10 ml 0100,0900,1700 JOAQUIN Administration Trazodone HCl 50 mg 07/24/19 02:10 07/25/19 21:37 Desyrel PO 50 mg QPM PRN Administration Insomnia - Lab Result Fish Bone Diagrams: 07/26/19 04:36 07/26/19 04:36 Subjective - Subjective Patient Reports: Cough, Pain (Pleuritic chest pain with coughing L kati- lateral lower ribcage area.) Objective Vital Signs: Vital Signs - 24 hr 07/25/19 07/25/19 07/25/19 13:22 15:36 18:05 Temperature 36.6 C Heart Rate 76 82 Heart Rate [ 90 Brachial] Heart Rate [ Monitoring electrodes] Respiratory 20 20 20 Rate Blood Pressure Blood Pressure 128/70 [Right Brachial artery] O2 Saturation 92 07/25/19 07/25/19 07/25/19 19:28 20:15 21:38 Temperature 36.8 C Heart Rate 75 Heart Rate [ Brachial] Heart Rate [ 86 Monitoring electrodes] Respiratory 20 18 Rate Blood Pressure 114/58 L Blood Pressure [Right Brachial artery] O2 Saturation 94 07/25/19 07/26/19 07/26/19 22:00 00:00 00:30 Temperature 36.8 C 36.4 C L Heart Rate 64 Heart Rate [ 66 57 L Brachial] Heart Rate [ Monitoring electrodes] Respiratory 18 18 18 Rate Blood Pressure Blood Pressure 134/80 H 112/57 L [Right Brachial artery] O2 Saturation 96 97 07/26/19 07/26/19 07/26/19 05:20 07:56 08:53 Temperature 36.7 C Heart Rate 75 Heart Rate [ Brachial] Heart Rate [ 72 Monitoring electrodes] Respiratory 20 16 Rate Blood Pressure 121/66 Blood Pressure 121/66 [Right Brachial artery] O2 Saturation 93 07/26/19 10:15 Temperature Heart Rate 65 Heart Rate [ Brachial] Heart Rate [ Monitoring electrodes] Respiratory 24 Rate Blood Pressure Blood Pressure [Right Brachial artery] O2 Saturation Oxygen O2 Source [facility] I&O (Last 24 Hrs): Intake and Output Totals x24h 07/24/19 07/25/19 07/26/19 23:59 23:59 23:59 Intake Total 2332.08 2480 550 Output Total 2150 2950 850 Balance 182.08 -470 -300 General: Alert, Oriented x3, Mild distress, Other (Cachectic) HEENT: Mucous membr. moist/pink, Other (Wearing nasal mask O2) Neck: Supple Neuro: Alert, Non Focal Cardiovascular: Regular rate Respiratory: Rhonchi Abdomen: Soft Extremities: No edema - Results Results: Laboratory Results WBC 9.8 x10^3/uL (4.8-10.8) 07/26/19 04:36 RBC 3.74 10^6/uL (4.20-5.40) L 07/26/19 04:36 Hgb 12.8 g/dL (12.0-16.0) 07/26/19 04:36 Hct 36.2 % (37.0-47.0) L 07/26/19 04:36 MCV 96.8 fL (81.0-99.0) 07/26/19 04:36 MCH 34.2 pg (27.0-31.0) H 07/26/19 04:36 MCHC 35.4 g/dL (32.0-36.0) 07/26/19 04:36 RDW 12.0 % (12.0-15.0) 07/26/19 04:36 Plt Count 159 10^3/uL (130-450) 07/26/19 04:36 MPV 7.7 fL (7.9-10.8) L 07/26/19 04:36 Neut # (Auto) 8.9 10^3/uL (1.5-6.6) H 07/26/19 04:36 Lymph # (Auto) 0.4 10^3/uL (1.5-3.5) L 07/26/19 04:36 [place] # (Auto) 0.3 10^3/uL (0.0-1.0) 07/26/19 04:36 Eos # (Auto) 0.0 10^3/uL (0.0-0.7) 07/26/19 04:36 Baso # (Auto) 0.0 10^3/uL (0.0-0.1) 07/26/19 04:36 Absolute Nucleated RBC 0.00 x10^3/uL 07/26/19 04:36 Total Counted 100 07/25/19 04:40 Band Neuts % (Manual) 5 % (0-10) 07/25/19 04:40 Abnorm Lymph % (Manual) 0 % 07/25/19 04:40 Nucleated RBC % 0.0 /100WBC 07/26/19 04:36 Neutrophils # (Manual) 9.2 10^3/uL (1.5-6.6) H 07/25/19 04:40 Lymphocytes # (Manual) 0.4 10^3/uL (1.5-3.5) L 07/25/19 04:40 Monocytes # (Manual) 0.3 10^3/uL (0.0-1.0) 07/25/19 04:40 Eosinophils # (Manual) 0.0 10^3/uL (0-0.7) 07/25/19 04:40 Basophils # (Manual) 0.0 10^3/uL (0-0.1) 07/25/19 04:40 Differential Comment MANUAL DIFFERENTIAL 07/25/19 04:40 Platelet Estimate NORMAL (130-450,000) (NORMAL) 07/25/19 04:40 RBC Morph Micro Appear NORMAL APPEARANCE (NORMAL) 07/25/19 04:40 Bld Gas Analysis Time 0812 07/24/19 08:12 Sample Site RIGHT RADIAL 07/24/19 08:12 ABG pH 7.46 (7.35-7.45) H 07/24/19 08:12 ABG pCO2 30 mmHg (34-45) L 07/24/19 08:12 ABG pO2 87 mmHg (80-100) 07/24/19 08:12 ABG HCO3 21.4 mmol/L (22.0-26.0) L 07/24/19 08:12 ABG Total CO2 22.0 MMOL/L (21.0-29.0) 07/24/19 08:12 ABG O2 Saturation 97 % (94-98) 07/24/19 08:12 ABG Base Excess -2.0 mmol/L (-2.0-3.0) 07/24/19 08:12 Jd Test POSITIVE 07/24/19 08:12 O2 Delivery Device NASAL CANNULA 07/24/19 08:12 O2 Liters/Min 2.50 LPM 07/24/19 08:12 Sodium 139 mmol/L (135-145) 07/26/19 04:36 Potassium 3.3 mmol/L (3.5-5.0) L 07/26/19 04:36 Chloride 103 mmol/L (101-111) 07/26/19 04:36 Carbon Dioxide 26 mmol/L (21-32) 07/26/19 04:36 Anion Gap 10.0 (6-13) 07/26/19 04:36 BUN 15 mg/dL (6-20) 07/26/19 04:36 Creatinine 0.6 mg/dL (0.4-1.0) 07/26/19 04:36 Estimated GFR (MDRD) 97 (>89) 07/26/19 04:36 Glucose 140 mg/dL (70-100) H 07/26/19 04:36 Calcium 9.1 mg/dL (8.5-10.3) 07/26/19 04:36 Magnesium 1.8 mg/dL (1.7-2.8) 07/24/19 04:20 Total Bilirubin 0.5 mg/dL (0.2-1.0) 07/23/19 21:13 AST 21 IU/L (10-42) 07/23/19 21:13 ALT 20 IU/L (10-60) 07/23/19 21:13 Alkaline Phosphatase 63 IU/L (42-121) 07/23/19 21:13 Total Protein 7.3 g/dL (6.7-8.2) 07/23/19 21:13 Albumin 4.2 g/dL (3.2-5.5) 07/23/19 21:13 Globulin 3.1 g/dL (2.1-4.2) 07/23/19 21:13 Albumin/Globulin Ratio 1.4 (1.0-2.2) 07/23/19 21:13 Lipase 40 U/L (22-51) 07/23/19 21:13 Influenza A (Rapid) Negative (Negative) 07/24/19 20:15 Influenza B (Rapid) Negative (Negative) 07/24/19 20:15 - Procedures Procedures: Procedures TOTAL HIP REPLACEMENT (06/10/13) Sepsis Event Note (H) - Evaluation Current Stage of Sepsis: Ruled out
[2019-07-26] MEDS: ACETAMINOPHEN 325 MG TABLET PO PRN ×3 (13:53→22:13)
[2019-07-26] MEDS: MONTELUKAST 10 MG TABLET PO SCH (21:05)
[2019-07-26] MEDS: AZITHROMYCIN 250 MG TABLET PO SCH (21:05)
[2019-07-26] MEDS: SODIUM CHLORIDE FLUSH 0.9% 10 ML SYRINGE IVP PRN (21:06)
[2019-07-27] MEDS: guaiFENesin/DEXTROMETHORPHAN 10 ML UDC PO PRN ×2 (00:19→05:55)
[2019-07-27] MEDS: BENZONATATE 100 MG CAPSULE PO PRN ×2 (00:21→05:53)
[2019-07-27] MEDS: SODIUM CHLORIDE FLUSH 0.9% 10 ML SYRINGE IVP SCH ×3 (00:22→16:35)
[2019-07-27] MEDS: IPRATROPIUM/ALBUTEROL 3 ML NEB INH PRN ×4 (00:29→20:23)
[2019-07-27] MEDS: methylPREDNISolone SUCCINATE 40 MG/ML VIAL IVP SCH ×3 (05:53→20:56)
[2019-07-27] MEDS: SODIUM CHLORIDE FLUSH 0.9% 10 ML SYRINGE IVP PRN (05:53)
[2019-07-27 06:21] LABS: BASOPHILS % (AUTO) 0.1 %; HGB - HEMOGLOBIN 13.2 g/dL (12.0-16.0); LYMPHOCYTES # (AUTO) 0.6 10^3/uL (1.5-3.5); LYMPHOCYTES % (AUTO) 8.1 %; MEAN CORPUSCULAR HEMOGLOBIN 33.9 pg (27.0-31.0); MEAN CORPUSCULAR HGB CONC 35.3 g/dL (32.0-36.0); MEAN CORPUSCULAR VOLUME 96.1 fL (81.0-99.0); MEAN PLATELET VOLUME 7.9 fL (7.9-10.8); MONOCYTES # (AUTO) 0.4 10^3/uL (0.0-1.0); MONOCYTES % (AUTO) 5.5 %; NEUTROPHILS % (AUTO) 85.2 %; PLT - PLATELET COUNT 177 10^3/uL (130-450); RED BLOOD COUNT 3.89 10^6/uL (4.20-5.40); RED CELL DISTRIBUTION WIDTH 11.9 % (12.0-15.0); WHITE BLOOD COUNT 7.1 x10^3/uL (4.8-10.8)
[2019-07-27 06:27] LABS: CALCIUM 8.8 mg/dL (8.5-10.3); CREATININE 0.5 mg/dL (0.4-1.0)
[2019-07-27] MEDS: BUDESONIDE 0.5 MG/2 ML NEB INH SCH ×2 (07:50→20:23)
[2019-07-27] MEDS: MULTIVITAMIN W/MINERALS TABLET PO SCH (08:57)
[2019-07-27] MEDS: ASPIRIN EC 81 MG TABLET PO SCH (08:57)
[2019-07-27] MEDS: guaiFENesin 600 MG TABLET PO SCH ×2 (08:57→20:56)
[2019-07-27] MEDS: METOPROLOL TARTRATE 25 MG TABLET PO SCH ×2 (08:58→20:56)
[2019-07-27] MEDS: cefTRIAXone 1 GM in SODIUM CHLORIDE 0.9% MINIBAG 100 ML IV SCH (08:59)
[2019-07-27] MEDS: NICOTINE 14 MG PATCH TOP SCH (09:00)
[2019-07-27] MEDS: ENOXAPARIN 40 MG/0.4 ML SYRINGE SUBQ SCH (09:00)
[2019-07-27] MEDS: POLYETHYLENE GLYCOL 3350 17 GM PACKET PO SCH (09:00)
[2019-07-27] MEDS ORDERED: POTASSIUM CHLORIDE 20 MEQ TABLET PO SCH (11:03)
--- NOTE | 2019-07-27 19:47 | PROVIDER PROGRESS NOTE ---
Assessment/Plan - Problem List (1) COPD exacerbation Assessment/Plan: She is making slow improvement: no wheezing, just rhonchi now and the O2 setting is decreasing slightly. Continue with current nebs, steroids, O2, Singular, Mucinex and antibiotics. She will need an oximetry study on the day of DCh. (2) Respiratory failure with hypoxia Assessment/Plan: Continue supplemental O2, and as above in #1 (3) Collapse of left lung Assessment/Plan: I suspect she has a consolidation, since there was nothing seen (like a mass) to be causing the collapse. Continue antibiotics and good pulmonary toilet (4) Bronchiectasis Qualifiers: Bronchiectasis type: with acute exacerbation Qualified Code(s): J47.1 - Bronchiectasis with (acute) exacerbation Assessment/Plan: Continue with current nebs, steroids, O2, Singular, Mucinex and antibiotics with probiotics (5) Hypokalemia Assessment/Plan: Replace and follow BMP daily (6) Hypertension Assessment/Plan: She was on metoprolol, amlodipine and maximum dose lisinopril at home. She is only on metoprolol here and running blood pressures of 130/70. Will not restart her other medications until blood pressure is higher (7) Tobacco use Assessment/Plan: Nicotine patch being used and she is motivated to stop; she said she has been on and off cigarettes multiple times in her life, but has never had this type of SOB where she thought she was going to suffocating. (8) Cachexia Assessment/Plan: Seen by Dietary; intake was advised. - Current Meds Current Meds: Current Medications Generic Name Dose Route Start Last Admin Trade Name Freq PRN Reason Stop Dose Admin Acetaminophen 650 mg 07/25/19 11:40 07/26/19 22:13 Tylenol PO 650 mg Q4HR PRN Administration Pain or Fever > 38C (100.4F) Albuterol 2.5 mg 07/24/19 07:38 07/26/19 10:15 INH 2.5 mg RTQ4H PRN Administration Wheezing Albuterol/Ipratropium 3 ml 07/24/19 06:27 07/27/19 14:00 Duoneb INH 3 ml Q2HR PRN Administration Wheezing Aspirin 81 mg 07/25/19 09:00 07/27/19 08:57 Ecotrin PO 81 mg DAILY JOAQUIN Administration Azithromycin 250 mg 07/25/19 21:00 07/26/19 21:05 Zithromax PO 07/28/19 21:01 250 mg HS JOAQUIN Administration Benzonatate 100 mg 07/24/19 01:41 07/27/19 05:53 Tessalon PO 100 mg TID PRN Administration Cough Budesonide 0.5 mg 07/24/19 09:00 07/27/19 07:50 Pulmicort INH 0.5 mg RTBID JOAQUIN Administration Enoxaparin Sodium 40 mg 07/24/19 09:00 07/27/19 09:00 Lovenox SUBQ 40 mg DAILY JOAQUIN Administration Guaifenesin 600 mg 07/24/19 09:00 07/27/19 08:57 Mucinex PO 600 mg BID JOAQUIN Administration Guaifenesin 10 ml 07/24/19 18:55 07/27/19 05:55 Robitussin Dm PO 10 ml Q6HR PRN Administration Cough Ceftriaxone Sodium 1 gm/ 100 mls @ 200 mls/hr 07/25/19 09:00 07/27/19 09:43 Sodium Chloride IV Infused DAILY JOAQUIN Infusion Methylprednisolone 80 mg 07/25/19 14:00 07/27/19 13:59 Solu-Medrol (40mg Vial) IVP 80 mg TID JOAQUIN Administration Metoprolol Tartrate 25 mg 07/24/19 12:00 07/27/19 08:58 Lopressor PO 25 mg BID JOAQUIN Administration Montelukast Sodium 10 mg 07/26/19 21:00 07/26/19 21:05 Singulair PO 10 mg QPM JOAQUIN Administration Multivitamins/Minerals 1 tab 07/25/19 08:00 07/27/19 08:57 Theragran M PO 1 tab DAILYWM JOAQUIN Administration Nicotine 1 patch 07/27/19 09:00 07/27/19 09:00 Nicoderm TOP 1 patch DAILY JOAQUIN Administration Polyethylene Glycol 17 gm 07/24/19 09:00 07/27/19 09:00 Miralax PO Not Given DAILY JOAQUIN Sodium Chloride 10 ml 07/24/19 00:28 07/27/19 05:53 Normal Saline Flush 0.9% IVP 10 ml PRN PRN Administration NEEDED PER PROVIDER ORDERS Sodium Chloride 10 ml 07/24/19 01:00 07/27/19 16:35 Normal Saline Flush 0.9% IVP 10 ml 0100,0900,1700 JOAQUIN Administration Trazodone HCl 50 mg 07/24/19 02:10 07/25/19 21:37 Desyrel PO 50 mg QPM PRN Administration Insomnia - Lab Result Fish Bone Diagrams: 07/27/19 06:01 07/27/19 06:01 - Additional Planning My Orders: My Active Orders 07/26/19 21:00 Montelukast [Singulair] 10 mg PO QPM 07/27/19 09:00 Nicotine 14 mg Patch [Nicoderm] 1 patch TOP DAILY 07/27/19 15:24 Miscellaenous Nursing Order [RC] QSHIFT Subjective - Subjective Patient Reports: Feeling Better, Cough, Shortness of Breath Objective Vital Signs: Vital Signs - 24 hr 07/26/19 07/26/19 07/26/19 19:55 21:04 21:05 Temperature Heart Rate 64 Heart Rate [ Brachial] Heart Rate [ 72 Monitoring electrodes] Respiratory 20 Rate Blood Pressure 123/72 Blood Pressure 123/67 [Right Brachial artery] O2 Saturation 07/27/19 07/27/19 07/27/19 00:00 00:29 07:50 Temperature 36.7 C Heart Rate 56 L 59 L Heart Rate [ 61 Brachial] Heart Rate [ Monitoring electrodes] Respiratory 20 18 16 Rate Blood Pressure Blood Pressure 129/65 [Right Brachial artery] O2 Saturation 96 07/27/19 07/27/19 07/27/19 08:58 09:10 14:00 Temperature 36.6 C Heart Rate 56 L Heart Rate [ Brachial] Heart Rate [ 73 Monitoring electrodes] Respiratory 18 Rate Blood Pressure 123/70 Blood Pressure 123/70 [Right Brachial artery] O2 Saturation 07/27/19 17:23 Temperature 37 C Heart Rate Heart Rate [ 66 Brachial] Heart Rate [ 0 L Monitoring electrodes] Respiratory 18 Rate Blood Pressure Blood Pressure 135/79 H [Right Brachial artery] O2 Saturation 92 Oxygen O2 Source [facility] I&O (Last 24 Hrs): Intake and Output Totals x24h 07/25/19 07/26/19 07/27/19 23:59 23:59 23:59 Intake Total 2480 1530 1590 Output Total 2950 1750 2100 Balance -470 -220 -510 General: Alert, Oriented x3 HEENT: Mucous membr. moist/pink, Other (Wearing oximask on nose) Neck: Supple Neuro: Non Focal Cardiovascular: Regular rate, No murmurs Respiratory: Rhonchi Abdomen: Normal bowel sounds, Soft Extremities: No edema, Other ((+) clubbing of fingernails and toenails) - Results Results: Laboratory Results WBC 7.1 x10^3/uL (4.8-10.8) 07/27/19 06:01 RBC 3.89 10^6/uL (4.20-5.40) L 07/27/19 06:01 Hgb 13.2 g/dL (12.0-16.0) 07/27/19 06:01 Hct 37.4 % (37.0-47.0) 07/27/19 06:01 MCV 96.1 fL (81.0-99.0) 07/27/19 06:01 MCH 33.9 pg (27.0-31.0) H 07/27/19 06:01 MCHC 35.3 g/dL (32.0-36.0) 07/27/19 06:01 RDW 11.9 % (12.0-15.0) L 07/27/19 06:01 Plt Count 177 10^3/uL (130-450) 07/27/19 06:01 MPV 7.9 fL (7.9-10.8) 07/27/19 06:01 Neut # (Auto) 6.0 10^3/uL (1.5-6.6) 07/27/19 06:01 Lymph # (Auto) 0.6 10^3/uL (1.5-3.5) L 07/27/19 06:01 [place] # (Auto) 0.4 10^3/uL (0.0-1.0) 07/27/19 06:01 Eos # (Auto) 0.0 10^3/uL (0.0-0.7) 07/27/19 06:01 Baso # (Auto) 0.0 10^3/uL (0.0-0.1) 07/27/19 06:01 Absolute Nucleated RBC 0.00 x10^3/uL 07/27/19 06:01 Total Counted 100 07/25/19 04:40 Band Neuts % (Manual) 5 % (0-10) 07/25/19 04:40 Abnorm Lymph % (Manual) 0 % 07/25/19 04:40 Nucleated RBC % 0.0 /100WBC 07/27/19 06:01 Neutrophils # (Manual) 9.2 10^3/uL (1.5-6.6) H 07/25/19 04:40 Lymphocytes # (Manual) 0.4 10^3/uL (1.5-3.5) L 07/25/19 04:40 Monocytes # (Manual) 0.3 10^3/uL (0.0-1.0) 07/25/19 04:40 Eosinophils # (Manual) 0.0 10^3/uL (0-0.7) 07/25/19 04:40 Basophils # (Manual) 0.0 10^3/uL (0-0.1) 07/25/19 04:40 Differential Comment MANUAL DIFFERENTIAL 07/25/19 04:40 Platelet Estimate NORMAL (130-450,000) (NORMAL) 07/25/19 04:40 RBC Morph Micro Appear NORMAL APPEARANCE (NORMAL) 07/25/19 04:40 Bld Gas Analysis Time 0812 07/24/19 08:12 Sample Site RIGHT RADIAL 07/24/19 08:12 ABG pH 7.46 (7.35-7.45) H 07/24/19 08:12 ABG pCO2 30 mmHg (34-45) L 07/24/19 08:12 ABG pO2 87 mmHg (80-100) 07/24/19 08:12 ABG HCO3 21.4 mmol/L (22.0-26.0) L 07/24/19 08:12 ABG Total CO2 22.0 MMOL/L (21.0-29.0) 07/24/19 08:12 ABG O2 Saturation 97 % (94-98) 07/24/19 08:12 ABG Base Excess -2.0 mmol/L (-2.0-3.0) 07/24/19 08:12 Jd Test POSITIVE 07/24/19 08:12 O2 Delivery Device NASAL CANNULA 07/24/19 08:12 O2 Liters/Min 2.50 LPM 07/24/19 08:12 Sodium 139 mmol/L (135-145) 07/27/19 06:01 Potassium 3.3 mmol/L (3.5-5.0) L 07/27/19 06:01 Chloride 101 mmol/L (101-111) 07/27/19 06:01 Carbon Dioxide 27 mmol/L (21-32) 07/27/19 06:01 Anion Gap 11.0 (6-13) 07/27/19 06:01 BUN 16 mg/dL (6-20) 07/27/19 06:01 Creatinine 0.5 mg/dL (0.4-1.0) 07/27/19 06:01 Estimated GFR (MDRD) 120 (>89) 07/27/19 06:01 Glucose 138 mg/dL (70-100) H 07/27/19 06:01 Calcium 8.8 mg/dL (8.5-10.3) 07/27/19 06:01 Magnesium 1.8 mg/dL (1.7-2.8) 07/24/19 04:20 Total Bilirubin 0.5 mg/dL (0.2-1.0) 07/23/19 21:13 AST 21 IU/L (10-42) 07/23/19 21:13 ALT 20 IU/L (10-60) 07/23/19 21:13 Alkaline Phosphatase 63 IU/L (42-121) 07/23/19 21:13 Total Protein 7.3 g/dL (6.7-8.2) 07/23/19 21:13 Albumin 4.2 g/dL (3.2-5.5) 07/23/19 21:13 Globulin 3.1 g/dL (2.1-4.2) 07/23/19 21:13 Albumin/Globulin Ratio 1.4 (1.0-2.2) 07/23/19 21:13 Lipase 40 U/L (22-51) 07/23/19 21:13 Influenza A (Rapid) Negative (Negative) 07/24/19 20:15 Influenza B (Rapid) Negative (Negative) 07/24/19 20:15 - Procedures Procedures: Procedures TOTAL HIP REPLACEMENT (06/10/13) Sepsis Event Note (H) - Evaluation Current Stage of Sepsis: Ruled out
[2019-07-27] MEDS: AZITHROMYCIN 250 MG TABLET PO SCH (20:56)
[2019-07-27] MEDS: MONTELUKAST 10 MG TABLET PO SCH (20:56)
[2019-07-28] MEDS: SODIUM CHLORIDE FLUSH 0.9% 10 ML SYRINGE IVP SCH ×3 (00:28→21:32)
[2019-07-28] MEDS: guaiFENesin/DEXTROMETHORPHAN 10 ML UDC PO PRN (00:37)
[2019-07-28] MEDS: BENZONATATE 100 MG CAPSULE PO PRN ×2 (00:37→20:37)
[2019-07-28 05:28] LABS: BASOPHILS % (AUTO) 0.2 %; EOSINOPHILS % (AUTO) 0.2 %; HGB - HEMOGLOBIN 13.3 g/dL (12.0-16.0); LYMPHOCYTES # (AUTO) 0.5 10^3/uL (1.5-3.5); LYMPHOCYTES % (AUTO) 8.7 %; MEAN CORPUSCULAR HEMOGLOBIN 33.3 pg (27.0-31.0); MEAN CORPUSCULAR HGB CONC 34.5 g/dL (32.0-36.0); MEAN CORPUSCULAR VOLUME 96.5 fL (81.0-99.0); MEAN PLATELET VOLUME 7.8 fL (7.9-10.8); MONOCYTES # (AUTO) 0.4 10^3/uL (0.0-1.0); MONOCYTES % (AUTO) 6.9 %; NEUTROPHILS # (AUTO) 4.6 10^3/uL (1.5-6.6); NEUTROPHILS % (AUTO) 83.1 %; PLT - PLATELET COUNT 159 10^3/uL (130-450); RED BLOOD COUNT 3.99 10^6/uL (4.20-5.40); RED CELL DISTRIBUTION WIDTH 11.8 % (12.0-15.0); WHITE BLOOD COUNT 5.5 x10^3/uL (4.8-10.8)
[2019-07-28] MEDS: ACETAMINOPHEN 325 MG TABLET PO PRN (05:28)
[2019-07-28] MEDS: methylPREDNISolone SUCCINATE 40 MG/ML VIAL IVP SCH ×3 (05:29→21:32)
[2019-07-28] MEDS: SODIUM CHLORIDE FLUSH 0.9% 10 ML SYRINGE IVP PRN ×2 (05:29→14:25)
[2019-07-28 05:33] LABS: CALCIUM 8.7 mg/dL (8.5-10.3); CREATININE 0.6 mg/dL (0.4-1.0)
[2019-07-28] MEDS: IPRATROPIUM/ALBUTEROL 3 ML NEB INH PRN ×2 (07:24→19:48)
[2019-07-28] MEDS: BUDESONIDE 0.5 MG/2 ML NEB INH SCH ×2 (07:24→19:48)
[2019-07-28] MEDS ORDERED: POTASSIUM CHLORIDE 20 MEQ TABLET PO ONE ×2 (08:30→12:00)
[2019-07-28] MEDS: guaiFENesin 600 MG TABLET PO SCH ×2 (08:43→20:33)
[2019-07-28] MEDS: ASPIRIN EC 81 MG TABLET PO SCH (08:43)
[2019-07-28] MEDS: METOPROLOL TARTRATE 25 MG TABLET PO SCH ×2 (08:43→20:33)
[2019-07-28] MEDS: MULTIVITAMIN W/MINERALS TABLET PO SCH (08:43)
[2019-07-28] MEDS: NICOTINE 14 MG PATCH TOP SCH (08:46)
[2019-07-28] MEDS: POLYETHYLENE GLYCOL 3350 17 GM PACKET PO SCH (08:46)
[2019-07-28] MEDS: ENOXAPARIN 40 MG/0.4 ML SYRINGE SUBQ SCH (08:50)
[2019-07-28] MEDS: AZITHROMYCIN 250 MG TABLET PO SCH (20:33)
[2019-07-28] MEDS: MONTELUKAST 10 MG TABLET PO SCH (20:34)
[2019-07-29] MEDS: SODIUM CHLORIDE FLUSH 0.9% 10 ML SYRINGE IVP SCH ×2 (00:24→08:05)
[2019-07-29 05:32] LABS: EOSINOPHILS % (AUTO) 0.2 %; HGB - HEMOGLOBIN 13.3 g/dL (12.0-16.0); LYMPHOCYTES # (AUTO) 0.3 10^3/uL (1.5-3.5); LYMPHOCYTES % (AUTO) 7.1 %; MEAN CORPUSCULAR HEMOGLOBIN 33.1 pg (27.0-31.0); MEAN CORPUSCULAR HGB CONC 34.3 g/dL (32.0-36.0); MEAN CORPUSCULAR VOLUME 96.5 fL (81.0-99.0); MEAN PLATELET VOLUME 7.7 fL (7.9-10.8); MONOCYTES # (AUTO) 0.3 10^3/uL (0.0-1.0); MONOCYTES % (AUTO) 6.7 %; NEUTROPHILS # (AUTO) 4.1 10^3/uL (1.5-6.6); NEUTROPHILS % (AUTO) 84.8 %; PLT - PLATELET COUNT 161 10^3/uL (130-450); RED BLOOD COUNT 4.02 10^6/uL (4.20-5.40); RED CELL DISTRIBUTION WIDTH 11.9 % (12.0-15.0); WHITE BLOOD COUNT 4.8 x10^3/uL (4.8-10.8)
[2019-07-29] MEDS: methylPREDNISolone SUCCINATE 40 MG/ML VIAL IVP SCH (05:34)
[2019-07-29] MEDS: SODIUM CHLORIDE FLUSH 0.9% 10 ML SYRINGE IVP PRN (05:34)
[2019-07-29 05:45] LABS: CREATININE 0.5 mg/dL (0.4-1.0)
[2019-07-29] MEDS: BUDESONIDE 0.5 MG/2 ML NEB INH SCH (06:10)
[2019-07-29] MEDS: ALBUTEROL NEB 2.5 MG/3 ML INH PRN (06:10)
[2019-07-29] MEDS: POLYETHYLENE GLYCOL 3350 17 GM PACKET PO SCH (07:55)
[2019-07-29] MEDS ORDERED: POTASSIUM CHLORIDE 20 MEQ TABLET PO SCH (08:00)
[2019-07-29] MEDS: NICOTINE 14 MG PATCH TOP SCH (08:04)
[2019-07-29] MEDS: guaiFENesin 600 MG TABLET PO SCH (08:05)
[2019-07-29] MEDS: MULTIVITAMIN W/MINERALS TABLET PO SCH (08:05)
[2019-07-29] MEDS: ASPIRIN EC 81 MG TABLET PO SCH (08:05)
[2019-07-29] MEDS: METOPROLOL TARTRATE 25 MG TABLET PO SCH (08:05)
[2019-07-29] MEDS: ENOXAPARIN 40 MG/0.4 ML SYRINGE SUBQ SCH (08:08)
[2019-07-29] MEDS: ACETAMINOPHEN 325 MG TABLET PO PRN (08:11)
[2019-07-29] MEDS: IPRATROPIUM/ALBUTEROL 3 ML NEB INH PRN (09:50)
--- NOTE | 2019-07-29 11:01 | Discharge Plan ---
Discharge Plan Problem Reviewed?: Yes Disposition: Home, Self Care Condition: Stable Prescriptions: predniSONE [Deltasone] 20 mg PO [id number] #21 tab Diet: Regular Activity Restrictions: Activity as Tolerated Shower Restrictions: No (fall precaution) Instruction Topics: Prednisone tablets Health Concerns: COPD Plan of Treatment: you are prescribed Prednisone for shortness period of time for your COPD, you are advised to quit your cigarette smoking, followup pulmonary rehab, and regional marketing director as out-pt. You are prescribed home Oxygen according to Desat study of Oxygen by RT, please followup RT instruction to safely use oxygen at home. resume your home meds Care Goals: stabilization and improvement of your medical conditions Additional Instructions or Follow Up instructions: you may followup your PCP in one week, followup regional marketing director as out-pt. Should your symptoms return or worsen, you may present ER or call 911 for help. Follow-Up Care: [facility] No Smoking: If you smoke, Please STOP! Call for help. Follow-up with: Tim Castro DO [Primary Care Provider] -
--- NOTE | 2019-07-29 11:15 | DISCHARGE SUMMARY ---
Discharge Summary Admit Date: 07/24/19 Discharge Date: 07/29/19 Discharging Provider: Jose Daniel Briseno Primary Care Provider: Dr. Castro Condition at Discharge: Stable Discharge Disposition: Home, Self Care Discharge Facility Name: home - DIAGNOSES Admission Diagnoses: (1) COPD exacerbation (2) Hypertension (3) Hypokalemia Discharge Diagnoses with Status of Each Condition: (1) COPD exacerbation stable. pt is prescribed Prednisone for short time to wane off pt was hypoxic with ambulation, with room air O2 sats of 88%, with exertion on 3 lpm, her sats were 91-92% at 300ft. I am ordering home O2 at 3lpm via nasal cannula with ambulation. 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 Peter's HPI on 07/24/19 Patient seen on 07/24/19 at 01:00am Patient is a 74 y/o female who presented to the ED with complain of dyspnea which is worse with exertion. It has been progressively worse for the past 2 weeks. She has also been experiencing a nonproductive cough. She was around a friend who has an URI 2 weeks ago. She denies any previous occurrence. She has an inhaler which she has been using about every 2 hours with no relief. In the ED she was hypoxic with and O2Sat of about 88%. She does not use oxygen at home. She was given several breathing treatments in the ED with no relief. He respiratory status and oxygenation appeared to worsen with ambulation. As a result she was presented for admission. - HOSPITAL COURSE Hospital Course: pt was admitted for COPD exacerbation. pt was treated with high dosage of steroid. pt had CT chest reveals COPD but without masses. Finally pt's COPD exacerbation was controlled. pt was prescribed home O2, and home nebulizer, and short time of steroid. The detail hospital course is as the below 1) COPD exacerbation stable. pt is prescribed Prednisone for short time to wane off pt was hypoxic with ambulation, with room air O2 sats of 88%, with exertion on 3 lpm, her sats were 91-92% at 300ft. I am ordering home O2 at 3lpm via nasal cannula with ambulation. pt's home nebulizer machine for administration of bronchodialators to help treat her COPD (2) Respiratory failure with hypoxia resolved and stable (3) Collapse of left lung stable, clinically pt has significant improved, followup machine puller and refer to pulmonary rehab (4) Hypokalemia resolved (5) Hypertension stable (6) Tobacco use pt state she will quit smoking (7) malnutrition advise followup in store marketer as out-pt - ALLERGIES Allergies/Adverse Reactions: Allergies Allergy/AdvReac Type Severity Reaction Status Date / Time venom-honey bee Allergy Severe Respiratory Verified 07/28/18 14:19 [bee venom (honey bee)] codeine [Codeine] Allergy Rash Verified 07/28/18 14:19 meperidine HCl * Allergy Emesis Verified 07/28/18 14:19 [From Demerol] Penicillins Allergy Rash Verified 07/28/18 14:19 tetracycline [Tetracycline] Allergy Rash Verified 07/28/18 14:19 - MEDICATIONS Home Medications: Ambulatory Orders Medication Instructions Recorded Confirmed Acetaminophen [Pain Relief] 1,000 mg PO BID PRN 06/04/13 07/23/19 Aspirin EC [Ecotrin] 81 mg PO DAILY 06/04/13 07/23/19 Lisinopril [Prinivil] 20 mg PO BID 06/04/13 07/23/19 Albuterol Sulf [Ventolin Hfa 1 - 2 puffs INH Q4HR PRN #1 inhaler 07/28/18 07/23/19 Inhaler] Amlodipine Besylate [Norvasc] 10 mg PO DAILY 07/24/19 07/24/19 Metoprolol Tartrate [Lopressor] 25 mg PO BID 07/24/19 07/24/19 Tiotropium Br/Olodaterol HCl 1 puffs INH DAILY 07/24/19 07/24/19 [Stiolto Respimat Inhal [place]] predniSONE [Deltasone] 20 mg PO [id number] #21 tab 07/29/19 - PHYSICAL EXAM AT DISCHARGE General Appearance: positive: No acute distress, Alert. negative: Lethargic Eyes Bilateral: positive: Normal inspection, PERRL, No lid inflammation, Conjunctivae nml Neck: positive: Nml inspection, Thyroid nml, No JVD, Trachea midline. negative: Thyromegaly, Lymphadenopathy (R), Lymphadenopathy (L), Stiff neck, Tracheal deviation Respiratory: positive: Chest non-tender, No respiratory distress, Breath sounds nml. negative: Wheezes, Rales, Rhonchi Cardiovascular: positive: Regular rate & rhythm, No murmur, No gallop. negative: Irregularly irregular, Extrasystoles, Tachycardia, Bradycardia, JVD present, Systolic murmur, Diastolic murmur Peripheral Pulses: positive: 2+ Abdomen: positive: Non-tender, No organomegaly, Nml bowel sounds, No distention. negative: Tenderness, Guarding, Rebound Back: positive: Nml inspection. negative: CVA tenderness (R), CVA tenderness (L) Skin: positive: Color nml, No rash, Warm, Dry. negative: Cyanosis, Diaphoresis, Pallor Extremities: positive: Non-tender, Full ROM, Nml appearance. negative: Calf tenderness, Mohan's sign/cords Neurologic/Psychiatric: positive: Oriented x3, Motor nml, Sensation nml, Mood/affect nml. negative: Weakness, Sensory loss, Facial droop, Slurred/abnml speech, Depressed mood/affect - LABS Result Diagrams: 07/29/19 05:22 07/29/19 05:22 - SEPSIS Current Stage of Sepsis: Ruled out - FOLLOW UP Follow Up: you are prescribed Prednisone for shortness period of time for your COPD, you are advised to quit your cigarette smoking, followup pulmonary rehab, and machine puller as out-pt. You are prescribed home Oxygen according to [place] study of Oxygen by RT, please followup RT instruction to safely use oxygen at home. resume your home meds you may followup your PCP in one week, followup machine puller as out-pt. Should your symptoms return or worsen, you may present ER or call 911 for help. - TIME SPENT Time Spent in Discharge (Minutes): 50
[2019-07-29 13:52] VITALS: BP 136/79
== END 2019-07-29 13:40 | disposition home or self-care (01) | DRG 190 ==
LOC: ED 20:20 → MS3 07-24 00:28 → OBSVTOIN 07-25 16:04
PROVIDERS: ADMIT Internal Medicine; ATTEND Nurse Practitioner Gerontology
DX: J44.1 Chronic obstructive pulmonary disease with (acute) exacerbation (principal); J96.91 Respiratory failure, unspecified with hypoxia; J98.19 Other pulmonary collapse; Z68.1 Body mass index [BMI] 19.9 or less, adult; E44.0 Moderate protein-calorie malnutrition; E87.6 Hypokalemia; I10 Essential (primary) hypertension; M19.90 Unspecified osteoarthritis, unspecified site; Z96.649 Presence of unspecified artificial hip joint; F17.210 Nicotine dependence, cigarettes, uncomplicated; Z79.82 Long term (current) use of aspirin; Z79.51 Long term (current) use of inhaled steroids; Z79.899 Other long term (current) drug therapy; Z99.81 Dependence on supplemental oxygen
CPT/HCPCS: 36415; 36600; 71045; 71270; 80048; 80053; 82803; 83690; 83735; 85025; 87070; 87205; 87275; 87276; 94640; 94761; 96361; 96365; 96366; 96372; 96375; 96376; 99284; 99285; A9270; G0378; J1650; J7626; Q9967

== ENCOUNTER 2019-12-21 21:20 | Outpatient (CLI) | payer MEDICARE | END 2019-12-21 21:21 | disposition critical access hospital (66) | LOC: EMS 21:20 | PROVIDERS: ATTEND Surgery | DX: R06.02 Shortness of breath (principal); R53.1 Weakness | CPT/HCPCS: A0425; A0429 ==

== ENCOUNTER 2019-12-21 21:24 | Inpatient (IN) | payer MEDICARE ==
[2019-12-21] MEDS ORDERED: methylPREDNISolone SUCCINATE 125 MG/2 ML VIAL IVP STA (21:40)
[2019-12-21] MEDS ORDERED: IPRATROPIUM/ALBUTEROL 3 ML NEB INH STA ×2 (21:40)
--- NOTE | 2019-12-21 21:40 | ED Physician Documentation ---
PD HPI DYSPNEA - Stated complaint Stated Complaint: SOA - Chief complaint Chief Complaint: Resp - History obtained from History obtained from: Patient (Patient is a 74-year-old female who presents with a chief complaint of shortness of breath and cough and a history of COPD reports she is not having any fevers but reports a worsening productive cough and shortness of breath and tachypnea. Denies chest pain currently.) Review of Systems Constitutional: reports: Reviewed and negative Eyes: reports: Reviewed and negative Ears: reports: Reviewed and negative Nose: reports: Reviewed and negative Throat: reports: Reviewed and negative Cardiac: reports: Reviewed and negative Respiratory: reports: Dyspnea, Cough, Wheezing GI: reports: Reviewed and negative : reports: Reviewed and negative Skin: reports: Reviewed and negative Musculoskeletal: reports: Reviewed and negative Neurologic: reports: Reviewed and negative Psychiatric: reports: Reviewed and negative Endocrine: reports: Reviewed and negative Immunocompromised: reports: Reviewed and negative PD PAST MEDICAL HISTORY - Past Medical History Cardiovascular: Hypertension Respiratory: None Neuro: None Endocrine/Autoimmune: None GI: None BUFFER CHROME: None : None HEENT: None Psych: None Musculoskeletal: Osteoarthritis Derm: None - Past Surgical History Past Surgical History: Yes General: Appendectomy, Colonoscopy Ortho: Hip replacement, Arthroscopic surgery /BUFFER CHROME: Hysterectomy, Oophrectomy HEENT: Tonsil/Adenoidectomy - Present Medications Home Medications: Ambulatory Orders Medication Instructions Recorded Confirmed Acetaminophen [Pain Relief] 1,000 mg PO BID PRN 06/04/13 12/21/19 Aspirin EC [Ecotrin] 81 mg PO DAILY 06/04/13 12/21/19 Albuterol Sulf [Ventolin Hfa 1 - 2 puffs INH Q4HR PRN #1 inhaler 07/28/18 12/21/19 Inhaler] Amlodipine Besylate [Norvasc] 10 mg PO DAILY 07/24/19 12/21/19 Metoprolol Tartrate [Lopressor] 25 mg PO BID 07/24/19 12/21/19 - Allergies Allergies/Adverse Reactions: Allergies Allergy/AdvReac Type Severity Reaction Status Date / Time venom-honey bee Allergy Severe Respiratory Verified 12/21/19 21:43 [bee venom (honey bee)] codeine [Codeine] Allergy Rash Verified 12/21/19 21:43 meperidine HCl * Allergy Emesis Verified 12/21/19 21:43 [From Demerol] Penicillins Allergy Rash Verified 12/21/19 21:43 tetracycline [Tetracycline] Allergy Rash Verified 12/21/19 21:43 - Social History Does the pt smoke?: Yes Smoking Status: Current every day smoker Does the pt drink ETOH?: Yes Does the pt have substance abuse?: No - Immunizations Immunizations are current?: Yes - POLST Patient has POLST: No POLST Status: Full Code PD ED PE NORMAL - Vitals Vital signs reviewed: Yes - General General: Alert and oriented X 3, No acute distress, Well developed/nourished - HEENT HEENT: PERRL, Moist mucous membranes, Pharynx benign - Neck Neck: Supple, no meningeal sign, No adenopathy, No JVD - Cardiac Cardiac: RRR, No murmur, Strong equal pulses - Respiratory Respiratory: Other (Trachea midline diffuse use of accessory muscles to include intercostal muscles supraclavicular and infraclavicular use of accessory muscles diffuse adventitious lung sounds in bilateral lung rojo to include wheezing and rhonchi she is coughing and she is tachypneic.) - Abdomen Abdomen: Normal bowel sounds, Soft, Non tender, Non distended - Back Back: No CVA TTP, No spinal TTP - Derm Derm: Normal color, Warm and dry, No rash - Extremities Extremities: No deformity, No tenderness to palpate, Normal ROM s pain, No edema, No calf tenderness / cord - Neuro Neuro: Alert and oriented X 3, local sales manager 2-12 intact, No motor deficit, No sensory deficit, Normal speech - Psych Psych: Normal mood, Normal affect Results - Vitals Vitals: Vital Signs - 24 hr 12/21/19 12/21/19 12/21/19 21:30 21:42 21:52 Temperature 36.7 C Heart Rate 78 75 76 Respiratory 28 H 20 13 Rate Blood Pressure 146/93 H 130/81 H O2 Saturation 99 100 12/21/19 12/21/19 12/21/19 22:04 22:29 22:57 Temperature 36.4 C L Heart Rate 79 84 97 Respiratory 18 23 19 Rate Blood Pressure 125/86 H 125/86 H 119/72 O2 Saturation 100 97 97 Oxygen O2 Source Nasal cannula Oxygen Flow Rate 2 - EKG (time done) 21:56 Rate: Other (no stemi) - Labs Labs: Laboratory Tests 12/21/19 12/21/19 12/21/19 21:30 21:30 21:30 WBC 5.5 RBC 4.65 Hgb 15.9 Hct 44.4 MCV 95.5 MCH 34.2 H MCHC 35.8 RDW 11.3 L Plt Count 197 MPV 8.0 Neut # (Auto) 2.4 Lymph # (Auto) 1.5 [place] # (Auto) 0.7 Eos # (Auto) 0.8 H Baso # (Auto) 0.1 Absolute Nucleated RBC 0.00 Nucleated RBC % 0.0 PT 11.8 INR 1.0 APTT 34.0 H Sodium 130 L Potassium 3.8 Chloride 93 L Carbon Dioxide 24 Anion Gap 13.0 BUN 10 Creatinine 0.5 Estimated GFR (MDRD) 120 Glucose 96 Lactic Acid Calcium 9.5 Magnesium 2.0 Total Bilirubin 0.7 AST 21 ALT 19 Alkaline Phosphatase 78 Total Creatine Kinase 67 Troponin I High Sens B-Natriuretic Peptide Total Protein 7.8 Albumin 4.7 Globulin 3.1 Albumin/Globulin Ratio 1.5 Lipase 32 Influenza A (Rapid) Influenza B (Rapid) 12/21/19 12/21/19 12/21/19 21:30 21:30 21:58 WBC RBC Hgb Hct MCV MCH MCHC RDW Plt Count MPV Neut # (Auto) Lymph # (Auto) [place] # (Auto) Eos # (Auto) Baso # (Auto) Absolute Nucleated RBC Nucleated RBC % PT INR APTT Sodium Potassium Chloride Carbon Dioxide Anion Gap BUN Creatinine Estimated GFR (MDRD) Glucose Lactic Acid 1.2 Calcium Magnesium Total Bilirubin AST ALT Alkaline Phosphatase Total Creatine Kinase Troponin I High Sens 2.9 B-Natriuretic Peptide 24 Total Protein Albumin Globulin Albumin/Globulin Ratio Lipase Influenza A (Rapid) Influenza B (Rapid) 12/21/19 21:58 WBC RBC Hgb Hct MCV MCH MCHC RDW Plt Count MPV Neut # (Auto) Lymph # (Auto) [place] # (Auto) Eos # (Auto) Baso # (Auto) Absolute Nucleated RBC Nucleated RBC % PT INR APTT Sodium Potassium Chloride Carbon Dioxide Anion Gap BUN Creatinine Estimated GFR (MDRD) Glucose Lactic Acid Calcium Magnesium Total Bilirubin AST ALT Alkaline Phosphatase Total Creatine Kinase Troponin I High Sens B-Natriuretic Peptide Total Protein Albumin Globulin Albumin/Globulin Ratio Lipase Influenza A (Rapid) Negative Influenza B (Rapid) Negative PD MEDICAL DECISION MAKING - ED course Complexity details: considered differential (COPD exacerbation, pneumonia, CHF, ACS, bronchitis, influenza, Acute exacerbation of chronic bronchitis) - Critical Care Time(min): 30 Time Includes: Direct patient care, Review records, Reassess patient, Document care, Coordinate care, Medical consult Data interpretation: Labs, Pulse ox, CXR Procedures included in critical care time: Peripheral IV Procedures excluded from critical care time: EKG Departure - Departure Disposition: ED Place in Observation Clinical Impression: COPD exacerbation Condition: Stable
[2019-12-21] MEDS ORDERED: SODIUM CHLORIDE 0.9% 1,000 ML IV ONE (21:43)
[2019-12-21] MEDS ORDERED: ALBUTEROL NEB 2.5 MG/3 ML INH STA (21:44)
[2019-12-21] MEDS ORDERED: AZITHROMYCIN INJ 500 MG in SODIUM CHLORIDE 0.9% 250 ML IV STA (21:47)
[2019-12-21] MEDS: IPRATROPIUM/ALBUTEROL 3 ML NEB INH STA (21:51)
[2019-12-21 21:53] LABS: BASOPHILS # (AUTO) 0.1 10^3/uL (0.0-0.1); BASOPHILS % (AUTO) 1.6 %; EOSINOPHILS # (AUTO) 0.8 10^3/uL (0.0-0.7); EOSINOPHILS % (AUTO) 14.1 %; HGB - HEMOGLOBIN 15.9 g/dL (12.0-16.0); LYMPHOCYTES # (AUTO) 1.5 10^3/uL (1.5-3.5); LYMPHOCYTES % (AUTO) 27.6 %; MEAN CORPUSCULAR HEMOGLOBIN 34.2 pg (27.0-31.0); MEAN CORPUSCULAR HGB CONC 35.8 g/dL (32.0-36.0); MEAN CORPUSCULAR VOLUME 95.5 fL (81.0-99.0); MONOCYTES # (AUTO) 0.7 10^3/uL (0.0-1.0); MONOCYTES % (AUTO) 13.3 %; NEUTROPHILS # (AUTO) 2.4 10^3/uL (1.5-6.6); NEUTROPHILS % (AUTO) 43.2 %; PLT - PLATELET COUNT 197 10^3/uL (130-450); RED BLOOD COUNT 4.65 10^6/uL (4.20-5.40); RED CELL DISTRIBUTION WIDTH 11.3 % (12.0-15.0); WHITE BLOOD COUNT 5.5 x10^3/uL (4.8-10.8)
[2019-12-21 21:59] LABS: PT - PROTHROMBIN TIME 11.8 secs (9.9-12.6)
[2019-12-21 22:08] LABS: ALBUMIN 4.7 g/dL (3.2-5.5); ALBUMIN/GLOBULIN RATIO 1.5 (1.0-2.2); BILIRUBIN,TOTAL 0.7 mg/dL (0.2-1.0); CALCIUM 9.5 mg/dL (8.5-10.3); CREATININE 0.5 mg/dL (0.4-1.0); TOTAL PROTEIN 7.8 g/dL (6.7-8.2)
--- NOTE | 2019-12-21 22:16 | XRAY Report ---
Reason: sob Procedure Date: 12/21/2019 Accession Number: [id number] / [id number] Procedure: XR - Chest 1 View X-Ray CPT Code: 52581 Final Report FULL RESULT: EXAM: CHEST RADIOGRAPHY EXAM DATE: 12/21/2019 10:08 PM. CLINICAL HISTORY: Sob. COMPARISON: CHEST 1 VIEW 07/23/2019 9:21 PM ABDOMEN/PELVIS W/ 07/28/2018 3:25 PM CHEST W/WO 07/25/2019 9:11 AM. TECHNIQUE: 1 view. FINDINGS: Lungs/Pleura: Some hyperinflation. Some peribronchial thickening is evident in the retrocardiac region, likely left lower lobe. Also possibly to a degree in the right base. No significant change compared to the prior exam. No focal consolidations, no effusions, no pneumothoraces. Mediastinum: Within exam limitations, the cardiomediastinal contour is normal. Other: None. IMPRESSION: No acute disease. No significant change compared to July 2019. RADIA
[2019-12-21] MEDS ORDERED: ONDANSETRON 4 MG/2 ML VIAL IVP PRN (23:01)
[2019-12-21] MEDS ORDERED: ALBUTEROL NEB 2.5 MG/3 ML INH PRN ×2 (23:03→23:40)
--- NOTE | 2019-12-21 23:27 | HISTORY & PHYSICAL EXAMINATION ---
Chief Complaint - Chief Complaint Chief Complaint: Shortness of breath History of Present Illness - Admitted From Admitted From:: Home - History Obtained From Records Reviewed: Yes History obtained from: Patient, ER Physician, EMR Exam Limitations: Patient is dyspneic. - History of Present Illness HPI Comment/Other: This is a 74-year-old female with a past medical history significant for COPD on 2 L of oxygen, hypertension who presents today complaining of worsening shortness of breath. She states her symptoms began about 3 to 4 days ago and have slowly progressed. Today she states she felt really short of breath and that is why she sought medical attention. She has been taking her albuterol nebulizer 4 times a day with only minimal improvement. She is not on any inhaler therapy except for the albuterol nebulizer. She states she been so short of breath that she has not really left the house much and has been unable to sleep due to her cough. She has some chest pain with her cough that is pleuritic in nature. Her cough is nonproductive. She reports no fevers or chills. She did have a flu vaccine earlier this year. Reports no recent sick contacts or travel. She states that when she does leave the house, she has been keeping her distance away from other people. He was last hospitalized for CP exacerbation back in July and that is when she was placed on oxygen. She has not seen a vending machine technician. She did smoke a pack a day for about 30 years but quit this past July. In the emergency department, she is found to be afebrile with temperature of 36.7 C. She was not tachycardic and her heart rate was in the 70s. Blood pressure is 146/93. She was tachypneic with respiratory rate in the high 20s and low 30s. She was saturating mid 90s on 2 L of oxygen via nasal cannula which is her baseline. Labs are unremarkable except for sodium of 130. Influenza is negative. Her chest x-ray shows no acute cardiopulmonary disease. She received 3 nebulizer treatments in emerge department with only minimal improvement in her symptoms. Given her ongoing dyspnea, she will be admitted for further management of her COPD. I did discuss goals of care with her and she states that she would like to be a DNR but it is okay with intubation if it is temporary. 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 Living arrangement: At home Living Situation: Alone Social History Notes: She lives at home alone. She smoked a pack a day for at least 30 years but quit this past July. She drinks 2 glasses of wine on a daily basis. She denies going through withdrawal in the past. Denies any illicit drug use. She has lived in [facility] for most of her life. Moved to [facility] about 10 years ago. 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 - POLST Patient has POLST: No POLST Status: DNR but ok with intubation. Meds/Allgy - Home Medications Home Medications: Ambulatory Orders Medication Instructions Recorded Confirmed Acetaminophen [Pain Relief] 1,000 mg PO BID PRN 06/04/13 12/21/19 Aspirin EC [Ecotrin] 81 mg PO DAILY 06/04/13 12/21/19 Albuterol Sulf [Ventolin Hfa 1 - 2 puffs INH Q4HR PRN #1 inhaler 07/28/18 12/21/19 Inhaler] Amlodipine Besylate [Norvasc] 10 mg PO DAILY 07/24/19 12/21/19 Metoprolol Tartrate [Lopressor] 25 mg PO BID 07/24/19 12/21/19 - Allergies Allergies/Adverse Reactions: Allergies Allergy/AdvReac Type Severity Reaction Status Date / Time venom-honey bee Allergy Severe Respiratory Verified 12/21/19 21:43 [bee venom (honey bee)] codeine [Codeine] Allergy Rash Verified 12/21/19 21:43 meperidine HCl * Allergy Emesis Verified 12/21/19 21:43 [From Demerol] Penicillins Allergy Rash Verified 12/21/19 21:43 tetracycline [Tetracycline] Allergy Rash Verified 12/21/19 21:43 Review of Systems - Constitutional Constitutional: reports: Fatigue. denies: Fever, Chills, Weight loss - Ears, Nose & Throat Ears, Nose & Throat: denies: Nasal discharge, Nasal congestion, Sore throat - Cardiovascular Cariovascular: reports: Chest pain (Pleuritic and with cough.), Exertional dyspnea, Decr. exercise tolerance. denies: Edema - Respiratory Respiratory: reports: Cough, SOB at rest. denies: Sputum production - Gastrointestinal Gastrointestinal: denies: Abdominal pain, Nausea, Vomiting - Genitourinary Genitourinary: denies: Dysuria, Frequency, Hematuria - Musculoskeletal Musculoskeletal: denies: Muscle pain, Muscle weakness - Integumentary Integumentary: denies: Rash - Neurological Neurological: denies: General weakness, Focal weakness, Numbness - All Other Systems All Other Systems: reports: Reviewed and negative Prior Level of Functionality: She is independent with her ADLs. Exam - Vital Signs Reviewed Vital Signs: Yes Vital Signs: Vital Signs x48h Temp Pulse Resp BP Pulse Ox 12/21/19 22:57 36.4 C L 97 19 119/72 97 12/21/19 22:29 84 23 125/86 H 97 12/21/19 22:04 79 18 125/86 H 100 12/21/19 21:52 76 13 12/21/19 21:42 75 20 130/81 H 100 12/21/19 21:30 36.7 C 78 28 H 146/93 H 99 - Physical Exam General Appearance: positive: Alert, Moderate distress Eyes Bilateral: positive: Normal inspection, Conjunctivae nml ENT: positive: ENT inspection nml Neck: positive: Nml inspection Respiratory: positive: Wheezes (Faint expiratory wheezes.), Other (Tachypnic. Speaking in short sentences. Diminished breaht sounds bilaterally.). negative: No respiratory distress Cardiovascular: positive: Regular rate & rhythm, No murmur. negative: Extrasystoles, Bradycardia, Systolic murmur, Diastolic murmur Abdomen: positive: Non-tender, No distention. negative: Tenderness, Guarding, Rebound Skin: positive: No rash, Warm, Dry Extremities: positive: Full ROM, No pedal edema Neurologic/Psychiatric: positive: Oriented x3, Motor nml. negative: Disoriented to person, Disoriented to place, Disoriented to time Conclusion/Plan - Problem List (1) COPD exacerbation Conclusion/Plan: She is not hypoxic, she is tachypneic with a cough. Breath sounds are diminished with faint expiratory wheezes. Chest x-ray shows no acute abnormalities. Influenza negative. Low suspicion for COVID-19 given her history, imaging and labs at this time. We will treat her with 5 days of ceftriaxone and azithromycin. Solu-Medrol 40 mg twice daily. Tessalon Robitussin as needed. Standing Mucinex. Continue with her home oxygen at 2 L/min to maintain a saturation greater than 88%. If her respiratory status does not improve or she becomes more tachypneic, will consider BiPAP. She is a DNR but is okay with intubation if necessary. She will need appropriate maintenance therapy with a LAMA/LABA and possible ICS on discharge. (2) Chronic respiratory failure with hypoxia Conclusion/Plan: Is on 2 L of oxygen at baseline which is secondary to her COPD. She is currently saturating in the mid 90s on 2 L of oxygen. We will continue with the 2 L. Continue to treat her underlying COPD exacerbation. (3) Hyponatremia Conclusion/Plan: Suspect this is hypovolemic hyponatremia given she appears slightly hypovolemic on exam. Her sodium is low at 130. We will gently hydrate her with normal saline. Monitor her sodium. (4) Hypertension Conclusion/Plan: She is on amlodipine and metoprolol at home. She is currently normotensive. We will resume these in the morning. - Lab Results Lab results reviewed: Yes Fish Bones: 12/21/19 21:30 12/21/19 21:30 - Diagnostic Imaging Results Diagnostic Imaging Results: positive: Final report reviewed Core Measures - Anticipated LOS I expect patient to be DC'd or transferred within 96 hours.: Yes - Issues Hospital Issues and Management Plan: 74-year-old female with COPD on 2 L of oxygen admitted for CP exacerbation. We will treat her with IV steroids, antibiotics, duo nebs [id number]. - DVT/VTE - Prophylaxis VTE/DVT Device ordered at admit?: Yes VTE/DVT Prophylaxis med ordered at admit?: Yes
[2019-12-22] MEDS: SODIUM CHLORIDE FLUSH 0.9% 10 ML SYRINGE IVP SCH ×3 (00:02→17:24)
[2019-12-22] MEDS: SODIUM CHLORIDE 0.9% 1,000 ML IV SCH ×3 (00:10→23:47)
[2019-12-22] MEDS: BENZONATATE 100 MG CAPSULE PO PRN ×2 (00:11→08:47)
[2019-12-22] MEDS: guaiFENesin 100 MG/5 ML UDC PO PRN ×2 (00:12→06:17)
[2019-12-22] MEDS: IPRATROPIUM/ALBUTEROL 3 ML NEB INH SCH ×6 (01:32→21:00)
[2019-12-22 06:35] LABS: BASOPHILS % (AUTO) 0.6 %; EOSINOPHILS % (AUTO) 0.3 %; HGB - HEMOGLOBIN 13.9 g/dL (12.0-16.0); LYMPHOCYTES # (AUTO) 0.3 10^3/uL (1.5-3.5); LYMPHOCYTES % (AUTO) 10.2 %; MEAN CORPUSCULAR HEMOGLOBIN 34.2 pg (27.0-31.0); MEAN CORPUSCULAR HGB CONC 35.6 g/dL (32.0-36.0); MEAN CORPUSCULAR VOLUME 96.1 fL (81.0-99.0); MONOCYTES # (AUTO) 0.1 10^3/uL (0.0-1.0); MONOCYTES % (AUTO) 1.5 %; NEUTROPHILS # (AUTO) 2.8 10^3/uL (1.5-6.6); NEUTROPHILS % (AUTO) 87.1 %; PLT - PLATELET COUNT 166 10^3/uL (130-450); RED BLOOD COUNT 4.06 10^6/uL (4.20-5.40); RED CELL DISTRIBUTION WIDTH 11.4 % (12.0-15.0); WHITE BLOOD COUNT 3.3 x10^3/uL (4.8-10.8)
[2019-12-22 06:40] LABS: CALCIUM 8.8 mg/dL (8.5-10.3); CREATININE 0.6 mg/dL (0.4-1.0); MAGNESIUM 1.8 mg/dL (1.7-2.8)
[2019-12-22] MEDS: BENZOCAINE/MENTHOL LOZENGE MM PRN (06:58)
[2019-12-22] MEDS: AZITHROMYCIN 250 MG TABLET PO SCH (08:47)
[2019-12-22] MEDS: ACETAMINOPHEN 325 MG TABLET PO PRN ×2 (08:47→23:54)
[2019-12-22] MEDS: ASPIRIN EC 81 MG TABLET PO SCH (08:47)
[2019-12-22] MEDS: METOPROLOL TARTRATE 25 MG TABLET PO SCH ×2 (08:47→22:14)
[2019-12-22] MEDS: ENOXAPARIN 40 MG/0.4 ML SYRINGE SUBQ SCH (08:48)
[2019-12-22] MEDS: methylPREDNISolone SUCCINATE 40 MG/ML VIAL IVP SCH ×2 (08:48→22:14)
[2019-12-22] MEDS: amLODIPine 5 MG TABLET PO SCH (08:48)
[2019-12-22] MEDS: guaiFENesin 600 MG TABLET PO SCH ×2 (08:48→22:15)
[2019-12-22] MEDS: cefTRIAXone 1 GM in SODIUM CHLORIDE 0.9% MINIBAG 100 ML IV SCH (08:48)
--- NOTE | 2019-12-22 09:00 | PROVIDER PROGRESS NOTE ---
Subjective - Prog Note Date Prog Note Date: 12/22/19 Prog Note Time: 09:05 - Subjective Subjective: still sob at rest. eating was difficult and a try to the bathroom really wiped her out. but better than on admission she reports. less sensation of suffocating to . Current Medications - Current Medications Current Medications: Active Medications Acetaminophen (Tylenol) 650 mg PO Q4HR PRN PRN Reason: Pain 1 to 4 Last Admin: 12/22/19 08:47 Dose: 650 mg Albuterol () 2.5 mg INH Q2H PRN PRN Reason: Wheezing Albuterol/Ipratropium (Duoneb) 3 ml INH Q4HR [facility] Last Admin: 12/22/19 05:04 Dose: 3 ml Amlodipine Besylate (Norvasc) 10 mg PO DAILY [facility] Last Admin: 12/22/19 08:48 Dose: 10 mg Aspirin (Ecotrin) 81 mg PO DAILY [facility] Last Admin: 12/22/19 08:47 Dose: 81 mg Azithromycin (Zithromax) 250 mg PO DAILY [facility] Last Admin: 12/22/19 08:47 Dose: 250 mg Benzonatate (Tessalon) 100 mg PO TID PRN PRN Reason: Cough Last Admin: 12/22/19 08:47 Dose: 100 mg Enoxaparin Sodium (Lovenox) 40 mg SUBQ DAILY [facility] Last Admin: 12/22/19 08:48 Dose: 40 mg Guaifenesin (Robitussin Liquid) 100 mg PO Q6HR PRN PRN Reason: Cough Last Admin: 12/22/19 06:17 Dose: 100 mg Guaifenesin (Mucinex) 1,200 mg PO BID [facility] Last Admin: 12/22/19 08:48 Dose: 1,200 mg Ceftriaxone Sodium 1 gm/ (Sodium Chloride) 100 mls @ 200 mls/hr IV DAILY [facility] Last Admin: 12/22/19 08:48 Dose: 200 mls/hr Sodium Chloride (Normal Saline 0.9%) 1,000 mls @ 83.333 mls/hr IV .Q12H [facility] Last Admin: 12/22/19 00:10 Dose: 83.333 mls/hr Methylprednisolone (Solu-Medrol (40mg Vial)) 40 mg IVP BID [facility] Last Admin: 12/22/19 08:48 Dose: 40 mg Metoprolol Tartrate (Lopressor) 25 mg PO BID [facility] Last Admin: 12/22/19 08:47 Dose: 25 mg Ondansetron HCl (Zofran Inj) 4 mg IVP Q6HR PRN PRN Reason: Nausea / Vomiting Last Admin: 12/22/19 00:01 Dose: 4 mg Sodium Chloride (Normal Saline Flush 0.9%) 10 ml IVP PRN PRN PRN Reason: NEEDED PER PROVIDER ORDERS Sodium Chloride (Normal Saline Flush 0.9%) 10 ml IVP 0100,0900,1700 [facility] Last Admin: 12/22/19 08:49 Dose: Not Given Throat Lozenges (Cepacol) 1 lozenge MM Q2HR PRN PRN Reason: Throat pain Last Admin: 12/22/19 06:58 Dose: 1 lozenge Acetaminophen [Pain Relief] 1,000 mg PO BID PRN 06/04/13 Aspirin EC [Ecotrin] 81 mg PO DAILY 06/04/13 Amlodipine Besylate [Norvasc] 10 mg PO DAILY 07/24/19 Metoprolol Tartrate [Lopressor] 25 mg PO BID 07/24/19 Objective - Vital Signs/Intake & Output Reviewed Vital Signs: Yes Vital Signs: Vital Signs x48h Temp Pulse Pulse Resp BP Pulse Ox 12/22/19 05:58 36.7 C 88 18 98 12/22/19 05:07 88 18 12/22/19 03:24 36.7 C 110 H 22 141/72 H 93 Intake & Output: Intake & Output 12/19/19 12/20/19 12/21/19 12/22/19 23:59 23:59 23:59 23:59 Intake Total 1265 Output Total 200 1050 Balance 1065 -1050 - Objective General Appearance: positive: Alert, Mild distress (with tachypnea), Other (thin at 5'6" and 55.5 kg) Eyes Bilateral: positive: PERRL ENT: positive: No signs of dehydration Neck: positive: No JVD Respiratory: positive: Chest non-tender, No respiratory distress (until she tries to talk then increased rate and increased use of rib cage muscles), Wheezes. negative: Rales, Rhonchi Cardiovascular: positive: Regular rate & rhythm. negative: Gallop/S4, Friction rub Abdomen: positive: Non-tender, No organomegaly, Nml bowel sounds Skin: positive: Warm, Dry Extremities: positive: Full ROM, No pedal edema Neurologic/Psychiatric: positive: Oriented x3, CN's nml (2-12), Motor nml. negative: Weakness - Lab Results Fish Bones: 12/22/19 06:11 12/22/19 06:11 Other Labs: Lab Results x24hrs 12/22/19 12/22/19 12/21/19 Range/Units 06:11 06:11 21:58 WBC 3.3 L (4.8-10.8) x10^3/uL RBC 4.06 L (4.20-5.40) 10^6/uL Hgb 13.9 (12.0-16.0) g/dL Hct 39.0 (37.0-47.0) % MCV 96.1 (81.0-99.0) fL MCH 34.2 H (27.0-31.0) pg MCHC 35.6 (32.0-36.0) g/dL RDW 11.4 L (12.0-15.0) % Plt Count 166 (130-450) 10^3/uL MPV 8.0 (7.9-10.8) fL Neut # (Auto) 2.8 (1.5-6.6) 10^3/uL Lymph # (Auto) 0.3 L (1.5-3.5) 10^3/uL [place] # (Auto) 0.1 (0.0-1.0) 10^3/uL Eos # (Auto) 0.0 (0.0-0.7) 10^3/uL Baso # (Auto) 0.0 (0.0-0.1) 10^3/uL Absolute Nucleated RBC 0.00 x10^3/uL Nucleated RBC % 0.0 /100WBC PT (9.9-12.6) secs INR (0.8-1.2) APTT (24.9-33.3) secs Sodium 133 L (135-145) mmol/L Potassium 3.5 (3.5-5.0) mmol/L Chloride 98 L (101-111) mmol/L Carbon Dioxide 23 (21-32) mmol/L Anion Gap 12.0 (6-13) BUN 8 (6-20) mg/dL Creatinine 0.6 (0.4-1.0) mg/dL Estimated GFR (MDRD) 97 (>89) Glucose 166 H (70-100) mg/dL Lactic Acid (0.5-2.2) mmol/L Calcium 8.8 (8.5-10.3) mg/dL Phosphorus 3.0 (2.5-4.6) mg/dL Magnesium 1.8 (1.7-2.8) mg/dL Total Bilirubin (0.2-1.0) mg/dL AST (10-42) IU/L ALT (10-60) IU/L Alkaline Phosphatase (42-121) IU/L Total Creatine Kinase (22-269) IU/L Troponin I High Sens (2.3-14.8) ng/L B-Natriuretic Peptide (5-100) pg/mL Total Protein (6.7-8.2) g/dL Albumin (3.2-5.5) g/dL Globulin (2.1-4.2) g/dL Albumin/Globulin Ratio (1.0-2.2) Lipase (22-51) U/L Influenza A (Rapid) Negative (Negative) Influenza B (Rapid) Negative (Negative) 12/21/19 12/21/19 12/21/19 Range/Units 21:58 21:30 21:30 WBC (4.8-10.8) x10^3/uL RBC (4.20-5.40) 10^6/uL Hgb (12.0-16.0) g/dL Hct (37.0-47.0) % MCV (81.0-99.0) fL MCH (27.0-31.0) pg MCHC (32.0-36.0) g/dL RDW (12.0-15.0) % Plt Count (130-450) 10^3/uL MPV (7.9-10.8) fL Neut # (Auto) (1.5-6.6) 10^3/uL Lymph # (Auto) (1.5-3.5) 10^3/uL [place] # (Auto) (0.0-1.0) 10^3/uL Eos # (Auto) (0.0-0.7) 10^3/uL Baso # (Auto) (0.0-0.1) 10^3/uL Absolute Nucleated RBC x10^3/uL Nucleated RBC % /100WBC PT (9.9-12.6) secs INR (0.8-1.2) APTT (24.9-33.3) secs Sodium (135-145) mmol/L Potassium (3.5-5.0) mmol/L Chloride (101-111) mmol/L Carbon Dioxide (21-32) mmol/L Anion Gap (6-13) BUN (6-20) mg/dL Creatinine (0.4-1.0) mg/dL Estimated GFR (MDRD) (>89) Glucose (70-100) mg/dL Lactic Acid 1.2 (0.5-2.2) mmol/L Calcium (8.5-10.3) mg/dL Phosphorus (2.5-4.6) mg/dL Magnesium (1.7-2.8) mg/dL Total Bilirubin (0.2-1.0) mg/dL AST (10-42) IU/L ALT (10-60) IU/L Alkaline Phosphatase (42-121) IU/L Total Creatine Kinase (22-269) IU/L Troponin I High Sens 2.9 (2.3-14.8) ng/L B-Natriuretic Peptide 24 (5-100) pg/mL Total Protein (6.7-8.2) g/dL Albumin (3.2-5.5) g/dL Globulin (2.1-4.2) g/dL Albumin/Globulin Ratio (1.0-2.2) Lipase (22-51) U/L Influenza A (Rapid) (Negative) Influenza B (Rapid) (Negative) 12/21/19 12/21/19 12/21/19 Range/Units 21:30 21:30 21:30 WBC 5.5 (4.8-10.8) x10^3/uL RBC 4.65 (4.20-5.40) 10^6/uL Hgb 15.9 (12.0-16.0) g/dL Hct 44.4 (37.0-47.0) % MCV 95.5 (81.0-99.0) fL MCH 34.2 H (27.0-31.0) pg MCHC 35.8 (32.0-36.0) g/dL RDW 11.3 L (12.0-15.0) % Plt Count 197 (130-450) 10^3/uL MPV 8.0 (7.9-10.8) fL Neut # (Auto) 2.4 (1.5-6.6) 10^3/uL Lymph # (Auto) 1.5 (1.5-3.5) 10^3/uL [place] # (Auto) 0.7 (0.0-1.0) 10^3/uL Eos # (Auto) 0.8 H (0.0-0.7) 10^3/uL Baso # (Auto) 0.1 (0.0-0.1) 10^3/uL Absolute Nucleated RBC 0.00 x10^3/uL Nucleated RBC % 0.0 /100WBC PT 11.8 (9.9-12.6) secs INR 1.0 (0.8-1.2) APTT 34.0 H (24.9-33.3) secs Sodium 130 L (135-145) mmol/L Potassium 3.8 (3.5-5.0) mmol/L Chloride 93 L (101-111) mmol/L Carbon Dioxide 24 (21-32) mmol/L Anion Gap 13.0 (6-13) BUN 10 (6-20) mg/dL Creatinine 0.5 (0.4-1.0) mg/dL Estimated GFR (MDRD) 120 (>89) Glucose 96 (70-100) mg/dL Lactic Acid (0.5-2.2) mmol/L Calcium 9.5 (8.5-10.3) mg/dL Phosphorus (2.5-4.6) mg/dL Magnesium 2.0 (1.7-2.8) mg/dL Total Bilirubin 0.7 (0.2-1.0) mg/dL AST 21 (10-42) IU/L ALT 19 (10-60) IU/L Alkaline Phosphatase 78 (42-121) IU/L Total Creatine Kinase 67 (22-269) IU/L Troponin I High Sens (2.3-14.8) ng/L B-Natriuretic Peptide (5-100) pg/mL Total Protein 7.8 (6.7-8.2) g/dL Albumin 4.7 (3.2-5.5) g/dL Globulin 3.1 (2.1-4.2) g/dL Albumin/Globulin Ratio 1.5 (1.0-2.2) Lipase 32 (22-51) U/L Influenza A (Rapid) (Negative) Influenza B (Rapid) (Negative) ABX Reporting Has patient been on IV antibiotics over the past 48 hours?: Yes Assessment/Plan - Problem List (1) COPD exacerbation Impression: She is hypoxic at baseline and usually needs 2 liters at home. Here 2.5-3 liters off and on. she is tachypneic with a cough and has improved from last night but she is still sob at rest right now. She states that up to a week ago life was normal with activities of daily living. Right now gets so winded just to get up to urinate or to make food or to get dressed. Breath sounds are diminished with faint expiratory wheezes. Chest x-ray shows no acute abnormalities. Influenza negative. Low suspicion for COVID-19 given her history, imaging and labs at this time. Blood cultures done and in process. Plan: - 5 days of ceftriaxone and azithromycin. Change IV oral when she can get home, Today is day #2. Plan for one more night before dc. -Solu-Medrol 40 mg twice daily. -Tessalon Robitussin as needed. -Standing Mucinex. -Continue with her home oxygen at 2 L/min to maintain a saturation greater than 88%. -If her respiratory status does not improve or she becomes more tachypneic, will consider BiPAP. -She is a DNR but is okay with intubation if necessary. -She will need appropriate maintenance therapy with a LAMA/LABA and possible ICS on discharge. She now thinks that she may have run out of medicine, she's not sure for a week or so before admission. (2) Chronic respiratory failure with hypoxia Conclusion/Plan: Is on 2 L of oxygen at baseline which is secondary to her COPD. She is cu rrently saturating in the mid 90s on 2 L of oxygen. We will continue with the 2 L. I have reiterated this with RN today. Continue to treat her underlying COPD exacerbation. (3) Hyponatremia Conclusion/Plan: Suspect this is hypovolemic hyponatremia given she appears slightly hypovolemic on exam. Her sodium was low at 130 on admission. Today 133. We will continue to gently hydrate her with normal saline. Monitor her sodium. (4) Hypertension Conclusion/Plan: She is on amlodipine and metoprolol at home. She was normotensive on admit. Resumed these in the morning since she is now in 140s.
[2019-12-23] MEDS: SODIUM CHLORIDE FLUSH 0.9% 10 ML SYRINGE IVP SCH ×3 (00:02→16:30)
[2019-12-23] MEDS: IPRATROPIUM/ALBUTEROL 3 ML NEB INH SCH ×6 (01:59→21:59)
[2019-12-23 06:10] LABS: BASOPHILS % (AUTO) 0.1 %; EOSINOPHILS # (AUTO) 0.2 10^3/uL (0.0-0.7); EOSINOPHILS % (AUTO) 1.8 %; LYMPHOCYTES # (AUTO) 0.4 10^3/uL (1.5-3.5); LYMPHOCYTES % (AUTO) 5.2 %; MEAN CORPUSCULAR HEMOGLOBIN 34.7 pg (27.0-31.0); MEAN CORPUSCULAR HGB CONC 35.8 g/dL (32.0-36.0); MEAN CORPUSCULAR VOLUME 96.8 fL (81.0-99.0); MEAN PLATELET VOLUME 8.3 fL (7.9-10.8); MONOCYTES # (AUTO) 0.3 10^3/uL (0.0-1.0); MONOCYTES % (AUTO) 3.7 %; NEUTROPHILS # (AUTO) 7.5 10^3/uL (1.5-6.6); NEUTROPHILS % (AUTO) 88.8 %; PLT - PLATELET COUNT 169 10^3/uL (130-450); RED BLOOD COUNT 3.75 10^6/uL (4.20-5.40); RED CELL DISTRIBUTION WIDTH 11.5 % (12.0-15.0); WHITE BLOOD COUNT 8.4 x10^3/uL (4.8-10.8)
[2019-12-23 06:20] LABS: CALCIUM 8.6 mg/dL (8.5-10.3); CREATININE 0.6 mg/dL (0.4-1.0); MAGNESIUM 1.9 mg/dL (1.7-2.8); PHOSPHORUS 3.5 mg/dL (2.5-4.6)
[2019-12-23] MEDS: guaiFENesin 600 MG TABLET PO SCH ×2 (08:11→20:51)
[2019-12-23] MEDS: methylPREDNISolone SUCCINATE 40 MG/ML VIAL IVP SCH (08:11)
[2019-12-23] MEDS: METOPROLOL TARTRATE 25 MG TABLET PO SCH ×2 (08:12→20:51)
[2019-12-23] MEDS: AZITHROMYCIN 250 MG TABLET PO SCH (08:12)
[2019-12-23] MEDS: ASPIRIN EC 81 MG TABLET PO SCH (08:12)
[2019-12-23] MEDS: BENZONATATE 100 MG CAPSULE PO PRN (08:12)
[2019-12-23] MEDS: guaiFENesin 100 MG/5 ML UDC PO PRN ×3 (08:12→23:22)
[2019-12-23] MEDS: ENOXAPARIN 40 MG/0.4 ML SYRINGE SUBQ SCH (08:13)
[2019-12-23] MEDS: ACETAMINOPHEN 325 MG TABLET PO PRN ×2 (08:13→12:41)
[2019-12-23] MEDS: cefTRIAXone 1 GM in SODIUM CHLORIDE 0.9% MINIBAG 100 ML IV SCH (08:13)
[2019-12-23] MEDS: amLODIPine 5 MG TABLET PO SCH (08:13)
--- NOTE | 2019-12-23 11:28 | PROVIDER PROGRESS NOTE ---
Assessment/Plan - Problem List (1) COPD exacerbation Assessment/Plan: Chest x-ray showed no acute abnormalities at admission. Influenza was negative, therefore she was a low suspicion for COVID-19 given her history, imaging and labs at that time. Blood cultures done and in process. Will recheck a CXR today, since the wet cough persists. Her WBC did drop yesterday from day of admission. Will recheck LFTs and if LFTs abnormal or if CXR shows typical infiltrates, will test for COVID and start empiric resp isolation. Increase iv steroids from Solumedrol 40 iv b.i.d. to 80 mg iv t.i.d. since she is still "tight". Continue scheduled and prn nebulizer treatments. Continue empiric Zithro and Ceftriaxone, a 5 day course was planned. Today is day #3. Continue Mucinex. Will add nightly Singulair. She is not ready for [facility] home; will admit to inpatient status. (2) Respiratory failure with hypoxia Qualifiers: Chronicity: acute on chronic Qualified Code(s): J96.21 - Acute and chronic respiratory failure with hypoxia Assessment/Plan: Continue supplemental O2. She is on home O2 and she may need a different setting ordered at [facility], by having a walking oximetry test with RT on day of [facility]. (3) Pleuritic chest pain Assessment/Plan: This is new today, she reports, from her severe coughing spasms. Continue cough suppressant and expectorant, Mucinex. Will add Singulair at hs. She says that the Tylenol mostly controls the pain when she coughs. (4) Hypokalemia Assessment/Plan: Likely related to iv containing only NS. Will replace orally. Follow BMP daily. (5) Hypertension Assessment/Plan: BP controlled on her home meds. Will stop iv NS today. (6) Hyponatremia Assessment/Plan: Resolved with 2 days of gentle iv NS hydration. Will stop iv NS. - Current Meds Current Meds: Current Medications Generic Name Dose Route Start Last Admin Trade Name Freq PRN Reason Stop Dose Admin Acetaminophen 650 mg 12/21/19 23:01 12/23/19 08:13 Tylenol PO 650 mg Q4HR PRN Administration Pain 1 to 4 Albuterol/Ipratropium 3 ml 12/22/19 01:00 12/23/19 08:11 Duoneb INH 3 ml Q4HR [facility]AQUIN Administration Amlodipine Besylate 10 mg 12/22/19 09:00 12/23/19 08:13 Norvasc PO 10 mg DAILY [facility]IN Administration Aspirin 81 mg 12/22/19 09:00 12/23/19 08:12 Ecotrin PO 81 mg DAILY [facility]IN Administration Azithromycin 250 mg 12/22/19 09:00 12/23/19 08:12 Zithromax PO 250 mg DAILY [facility]IN Administration Benzonatate 100 mg 12/21/19 23:04 12/23/19 08:12 Tessalon PO 100 mg TID PRN Administration Cough Enoxaparin Sodium 40 mg 12/22/19 09:00 12/23/19 08:13 Lovenox SUBQ Not Given DAILY [facility]IN Guaifenesin 100 mg 12/21/19 23:04 12/23/19 08:12 Robitussin Liquid PO 100 mg Q6HR PRN Administration Cough Guaifenesin 1,200 mg 12/22/19 09:00 12/23/19 08:11 Mucinex PO 1,200 mg BID [facility] Administration Ceftriaxone Sodium 1 gm/ 100 mls @ 200 mls/hr 12/22/19 09:00 12/23/19 08:53 Sodium Chloride IV Infused DAILY [facility] Infusion Metoprolol Tartrate 25 mg 12/22/19 09:00 12/23/19 08:12 Lopressor PO 25 mg BID [facility] Administration Ondansetron HCl 4 mg 12/21/19 23:01 12/22/19 00:01 Zofran Inj IVP 4 mg Q6HR PRN Administration Nausea / Vomiting Sodium Chloride 10 ml 12/22/19 01:00 12/23/19 08:13 Normal Saline Flush 0.9% IVP Not Given 0100,0900,1700 [facility]AQUIN Throat Lozenges 1 lozenge 12/22/19 06:28 12/22/19 06:58 Cepacol MM 1 lozenge Q2HR PRN Administration Throat pain - Lab Result Fish Bone Diagrams: 12/23/19 05:20 12/23/19 05:20 - Additional Planning My Orders: My Active Orders 12/23/19 05:00 LIVER PANEL [CHEM] Urgent 12/23/19 11:19 Admit [Admit \\ Transfer \\ Status] [RC] .ONCE 03/24/20 11:22 Chest 1 View X-Ray [XR] Stat 12/23/19 12:00 Potassium Chloride [K-Dur] 20 meq PO ONCE ONE 12/23/19 14:00 methylPREDNISolone SUCCINATE [SOLU-Medrol (40MG VIAL)] 80 mg IVP TID Subjective - Subjective Patient Reports: Shortness of Breath, Other (Pleuritic pain around rib cage and back whenever she coughs, cough is wet, hard to expectorate sputum, still tachypneic when walks to bathroom.) Objective Vital Signs: Vital Signs - 24 hr 12/22/19 12/22/19 12/22/19 11:52 13:32 15:38 Temperature 36.7 C 36.8 C Heart Rate 85 Heart Rate [ 73 91 Brachial] Respiratory 16 16 20 Rate Blood Pressure Blood Pressure 108/61 119/58 L [Right Brachial artery] O2 Saturation 93 93 12/22/19 12/22/19 12/22/19 17:49 20:05 21:02 Temperature 36.7 C Heart Rate 85 98 Heart Rate [ 90 Brachial] Respiratory 20 16 20 Rate Blood Pressure Blood Pressure 125/67 [Right Brachial artery] O2 Saturation 93 12/22/19 12/22/19 12/23/19 22:14 23:55 02:00 Temperature 36.9 C Heart Rate 70 Heart Rate [ 76 Brachial] Respiratory 20 20 Rate Blood Pressure 123/68 Blood Pressure 126/64 [Right Brachial artery] O2 Saturation 91 L 12/23/19 12/23/19 12/23/19 04:40 07:50 08:11 Temperature 36.7 C 36.3 C L Heart Rate 84 Heart Rate [ 83 85 Brachial] Respiratory 20 20 16 Rate Blood Pressure Blood Pressure 133/64 H 124/78 [Right Brachial artery] O2 Saturation 91 L 92 12/23/19 08:12 Temperature Heart Rate Heart Rate [ Brachial] Respiratory Rate Blood Pressure 124/78 Blood Pressure [Right Brachial artery] O2 Saturation Oxygen O2 Source Nasal cannula Oxygen Flow Rate 2 I&O (Last 24 Hrs): Intake and Output Totals x24h 12/21/19 12/22/19 12/23/19 23:59 23:59 23:59 Intake Total 1265 3199.222 1453 Output Total 200 3550 900 Balance 1065 -350.778 553 General: Alert, Oriented x3 HEENT: Mucous membr. moist/pink, Other (wearing n.c.) Neck: Supple Neuro: Alert, Non Focal Cardiovascular: Regular rate, No murmurs Respiratory: Other (tight, scattered wheezes, diffuse rhonchi posteriorly) Abdomen: Soft Extremities: No edema - Results Results: Laboratory Results WBC 8.4 x10^3/uL (4.8-10.8) 12/23/19 05:20 RBC 3.75 10^6/uL (4.20-5.40) L 12/23/19 05:20 Hgb 13.0 g/dL (12.0-16.0) 12/23/19 05:20 Hct 36.3 % (37.0-47.0) L 12/23/19 05:20 MCV 96.8 fL (81.0-99.0) 12/23/19 05:20 MCH 34.7 pg (27.0-31.0) H 12/23/19 05:20 MCHC 35.8 g/dL (32.0-36.0) 12/23/19 05:20 RDW 11.5 % (12.0-15.0) L 12/23/19 05:20 Plt Count 169 10^3/uL (130-450) 12/23/19 05:20 MPV 8.3 fL (7.9-10.8) 12/23/19 05:20 Neut # (Auto) 7.5 10^3/uL (1.5-6.6) H 12/23/19 05:20 Lymph # (Auto) 0.4 10^3/uL (1.5-3.5) L 12/23/19 05:20 [place] # (Auto) 0.3 10^3/uL (0.0-1.0) 12/23/19 05:20 Eos # (Auto) 0.2 10^3/uL (0.0-0.7) 12/23/19 05:20 Baso # (Auto) 0.0 10^3/uL (0.0-0.1) 12/23/19 05:20 Absolute Nucleated RBC 0.00 x10^3/uL 12/23/19 05:20 Nucleated RBC % 0.0 /100WBC 12/23/19 05:20 PT 11.8 secs (9.9-12.6) 12/21/19 21:30 INR 1.0 (0.8-1.2) 12/21/19 21:30 APTT 34.0 secs (24.9-33.3) H 12/21/19 21:30 Sodium 136 mmol/L (135-145) 12/23/19 05:20 Potassium 3.0 mmol/L (3.5-5.0) L 12/23/19 05:20 Chloride 101 mmol/L (101-111) 12/23/19 05:20 Carbon Dioxide 24 mmol/L (21-32) 12/23/19 05:20 Anion Gap 11.0 (6-13) 12/23/19 05:20 BUN 11 mg/dL (6-20) 12/23/19 05:20 Creatinine 0.6 mg/dL (0.4-1.0) 12/23/19 05:20 Estimated GFR (MDRD) 97 (>89) 12/23/19 05:20 Glucose 145 mg/dL (70-100) H 12/23/19 05:20 Lactic Acid 1.2 mmol/L (0.5-2.2) 12/21/19 21:58 Calcium 8.6 mg/dL (8.5-10.3) 12/23/19 05:20 Phosphorus 3.5 mg/dL (2.5-4.6) 12/23/19 05:20 Magnesium 1.9 mg/dL (1.7-2.8) 12/23/19 05:20 Total Bilirubin 0.7 mg/dL (0.2-1.0) 12/21/19 21:30 AST 21 IU/L (10-42) 12/21/19 21:30 ALT 19 IU/L (10-60) 12/21/19 21:30 Alkaline Phosphatase 78 IU/L (42-121) 12/21/19 21:30 Total Creatine Kinase 67 IU/L (22-269) 12/21/19 21:30 Troponin I High Sens 2.9 ng/L (2.3-14.8) 12/21/19 21:30 B-Natriuretic Peptide 24 pg/mL (5-100) 12/21/19 21:30 Total Protein 7.8 g/dL (6.7-8.2) 12/21/19 21:30 Albumin 4.7 g/dL (3.2-5.5) 12/21/19 21:30 Globulin 3.1 g/dL (2.1-4.2) 12/21/19 21:30 Albumin/Globulin Ratio 1.5 (1.0-2.2) 12/21/19 21:30 Lipase 32 U/L (22-51) 12/21/19 21:30 Influenza A (Rapid) Negative (Negative) 12/21/19 21:58 Influenza B (Rapid) Negative (Negative) 12/21/19 21:58 - Procedures Procedures: Procedures TOTAL HIP REPLACEMENT (06/10/13)
[2019-12-23 11:46] LABS: ALBUMIN 3.7 g/dL (3.2-5.5); ALKALINE PHOSPHATASE 54 IU/L (42-121); ALT ALANINE AMINOTRANSFERASE 15 IU/L (10-60); AST ASPARTATE AMINOTRANSFERASE 19 IU/L (10-42); BILIRUBIN,TOTAL 0.2 mg/dL (0.2-1.0); TOTAL PROTEIN 6.3 g/dL (6.7-8.2)
[2019-12-23 11:47] LABS: BILIRUBIN,DIRECT < 0.1 mg/dL (0.1-0.5)
[2019-12-23] MEDS ORDERED: POTASSIUM CHLORIDE 20 MEQ TABLET PO ONE (12:00)
--- NOTE | 2019-12-23 12:16 | XRAY Report ---
Reason: SOB, cough, sputum Procedure Date: 12/23/2019 Accession Number: [id number] / [id number] Procedure: XR - Chest 1 View X-Ray CPT Code: 98339 Final Report FULL RESULT: EXAM: CHEST RADIOGRAPHY EXAM DATE: 12/23/2019 11:42 AM. CLINICAL HISTORY: SOB, cough, sputum. COMPARISON: CHEST 1 VIEW 12/21/2019 9:50 PM. TECHNIQUE: 1 view. FINDINGS: Lungs/Pleura: No focal opacities evident. No pleural effusion. No pneumothorax. Mediastinum: Within exam limitations, the cardiomediastinal contour is normal. Other: None. IMPRESSION: No focal consolidation. RADIA
[2019-12-23] MEDS: methylPREDNISolone SUCCINATE 125 MG/2 ML VIAL IVP SCH ×2 (14:06→21:20)
[2019-12-23] MEDS: KETOROLAC 30 MG/ML VIAL IVP PRN (20:51)
[2019-12-23] MEDS: MONTELUKAST 10 MG TABLET PO SCH (20:51)
[2019-12-24] MEDS: SODIUM CHLORIDE FLUSH 0.9% 10 ML SYRINGE IVP SCH ×4 (00:06→23:59)
[2019-12-24] MEDS: IPRATROPIUM/ALBUTEROL 3 ML NEB INH SCH ×6 (01:55→22:08)
[2019-12-24 05:12] LABS: BASOPHILS % (AUTO) 0.1 %; HGB - HEMOGLOBIN 13.1 g/dL (12.0-16.0); LYMPHOCYTES # (AUTO) 0.5 10^3/uL (1.5-3.5); LYMPHOCYTES % (AUTO) 5.3 %; MEAN CORPUSCULAR HEMOGLOBIN 34.3 pg (27.0-31.0); MEAN CORPUSCULAR HGB CONC 35.4 g/dL (32.0-36.0); MEAN CORPUSCULAR VOLUME 96.9 fL (81.0-99.0); MEAN PLATELET VOLUME 8.1 fL (7.9-10.8); MONOCYTES # (AUTO) 0.3 10^3/uL (0.0-1.0); MONOCYTES % (AUTO) 2.9 %; NEUTROPHILS # (AUTO) 7.8 10^3/uL (1.5-6.6); PLT - PLATELET COUNT 173 10^3/uL (130-450); RED BLOOD COUNT 3.82 10^6/uL (4.20-5.40); RED CELL DISTRIBUTION WIDTH 11.6 % (12.0-15.0); WHITE BLOOD COUNT 8.5 x10^3/uL (4.8-10.8)
[2019-12-24 05:18] LABS: CALCIUM 8.9 mg/dL (8.5-10.3); CREATININE 0.6 mg/dL (0.4-1.0); MAGNESIUM 2.3 mg/dL (1.7-2.8); PHOSPHORUS 2.9 mg/dL (2.5-4.6)
[2019-12-24] MEDS: SODIUM CHLORIDE FLUSH 0.9% 10 ML SYRINGE IVP PRN ×2 (05:50→13:23)
[2019-12-24] MEDS: methylPREDNISolone SUCCINATE 125 MG/2 ML VIAL IVP SCH ×3 (05:50→21:36)
[2019-12-24] MEDS: KETOROLAC 30 MG/ML VIAL IVP PRN ×3 (07:28→22:38)
[2019-12-24] MEDS ORDERED: POTASSIUM CHLORIDE 20 MEQ TABLET PO SCH (07:57)
[2019-12-24] MEDS: amLODIPine 5 MG TABLET PO SCH (07:59)
[2019-12-24] MEDS: METOPROLOL TARTRATE 25 MG TABLET PO SCH ×2 (07:59→21:35)
[2019-12-24] MEDS: guaiFENesin 600 MG TABLET PO SCH ×2 (08:00→21:36)
[2019-12-24] MEDS: AZITHROMYCIN 250 MG TABLET PO SCH (08:00)
[2019-12-24] MEDS: ASPIRIN EC 81 MG TABLET PO SCH (08:00)
[2019-12-24] MEDS: ENOXAPARIN 40 MG/0.4 ML SYRINGE SUBQ SCH (08:01)
[2019-12-24] MEDS: cefTRIAXone 1 GM in SODIUM CHLORIDE 0.9% MINIBAG 100 ML IV SCH (08:01)
[2019-12-24] MEDS: guaiFENesin 100 MG/5 ML UDC PO PRN ×2 (08:57→23:11)
[2019-12-24] MEDS: BENZONATATE 100 MG CAPSULE PO PRN ×2 (08:57→23:55)
[2019-12-24] MEDS: BENZOCAINE/MENTHOL LOZENGE MM PRN (08:58)
--- NOTE | 2019-12-24 13:42 | PROVIDER PROGRESS NOTE ---
Assessment/Plan - Problem List (1) COPD exacerbation Assessment/Plan: The increase of iv Solumedrol iv from 40 bid to 80 tid helped, along with scheduled nebs, Mucinex, Tessalon perles prn, empiric antibiotics for productive cough, Robitussin liquid prn and pain control. The CXR repeated yesterday, had no signs of infiltrate, to provoke a COVID swab order. Continue present management. (2) Respiratory failure with hypoxia Qualifiers: Chronicity: acute on chronic Qualified Code(s): J96.21 - Acute and chronic respiratory failure with hypoxia Assessment/Plan: She still has tachypnea with ambulation to bathroom. She uses n.c. O2 at home and here Possible exercise oximetry tomorrow, if she is ready for DCh tomorrow, to see if she needs an order for different home O2 settings. (3) Pleuritic chest pain Assessment/Plan: Continue Ketolorac iv prn pain due to coughing. She is allergic to Codeine, Morphine and Dilaudid. (4) Hypokalemia Assessment/Plan: replace Follow BMP daily. (5) Hypertension Assessment/Plan: BP is stable on current meds (6) Hyponatremia Assessment/Plan: Improved with 1 day of iv NS hydration which was stopped yesterday. - Current Meds Current Meds: Current Medications Generic Name Dose Route Start Last Admin Trade Name Freq PRN Reason Stop Dose Admin Acetaminophen 650 mg 12/21/19 23:01 12/23/19 12:41 Tylenol PO 650 mg Q4HR PRN Administration Pain 1 to 4 Albuterol/Ipratropium 3 ml 12/22/19 01:00 12/24/19 11:30 Duoneb INH 3 ml Q4HR JOAQUIN Administration Amlodipine Besylate 10 mg 12/22/19 09:00 12/24/19 07:59 Norvasc PO 10 mg DAILY JOAQUIN Administration Aspirin 81 mg 12/22/19 09:00 12/24/19 08:00 Ecotrin PO 81 mg DAILY JOAQUIN Administration Azithromycin 250 mg 12/22/19 09:00 12/24/19 08:00 Zithromax PO 12/25/19 09:01 250 mg DAILY JOAQUIN Administration Benzonatate 100 mg 12/21/19 23:04 12/24/19 08:57 Tessalon PO 100 mg TID PRN Administration Cough Enoxaparin Sodium 40 mg 12/22/19 09:00 12/24/19 08:01 Lovenox SUBQ Not Given DAILY JOAQUIN Guaifenesin 100 mg 12/21/19 23:04 12/24/19 08:57 Robitussin Liquid PO 100 mg Q6HR PRN Administration Cough Guaifenesin 1,200 mg 12/22/19 09:00 12/24/19 08:00 Mucinex PO 1,200 mg BID JOAQUIN Administration Ceftriaxone Sodium 1 gm/ 100 mls @ 200 mls/hr 12/22/19 09:00 12/24/19 08:52 Sodium Chloride IV 12/26/19 09:29 Infused DAILY JOAQUIN Infusion Ketorolac Tromethamine 30 mg 12/23/19 16:25 12/24/19 07:28 Toradol Inj (30mg) IVP 12/28/19 16:24 30 mg Q6HR PRN Administration PAIN Methylprednisolone Sodium Succinate 80 mg 12/23/19 14:00 12/24/19 13:22 Solu-Medrol (125mg Vial) IVP 80 mg TID JOAQUIN Administration Metoprolol Tartrate 25 mg 12/22/19 09:00 12/24/19 07:59 Lopressor PO 25 mg BID JOAQUIN Administration Montelukast Sodium 10 mg 12/23/19 21:00 12/23/19 20:51 Singulair PO 10 mg QPM JOAQUIN Administration Ondansetron HCl 4 mg 12/21/19 23:01 12/22/19 00:01 Zofran Inj IVP 4 mg Q6HR PRN Administration Nausea / Vomiting Sodium Chloride 10 ml 12/21/19 23:01 12/24/19 13:23 Normal Saline Flush 0.9% IVP 10 ml PRN PRN Administration NEEDED PER PROVIDER ORDERS Sodium Chloride 10 ml 12/22/19 01:00 12/24/19 07:31 Normal Saline Flush 0.9% IVP 10 ml 0100,0900,1700 JOAQUIN Administration Throat Lozenges 1 lozenge 12/22/19 06:28 12/24/19 08:58 Cepacol MM 1 lozenge Q2HR PRN Administration Throat pain - Lab Result Fish Bone Diagrams: 12/24/19 04:50 12/24/19 04:50 - Additional Planning My Orders: My Active Orders 12/23/19 14:00 methylPREDNISolone SUCCINATE [SOLU-Medrol (125MG VIAL)] 80 mg IVP TID 12/23/19 16:25 Ketorolac Inj (30Mg) [Toradol Inj (30Mg)] 30 mg IVP Q6HR PRN 12/23/19 21:00 Montelukast [Singulair] 10 mg PO QPM Subjective - Subjective Patient Reports: Feeling Better, Cough (Less constant cough compared to yesterday, ketolorac helped the rib cage pain plus using a cough pillow), Shortness of Breath, Other Objective Vital Signs: Vital Signs - 24 hr 12/23/19 12/23/19 12/23/19 16:06 17:47 19:44 Temperature 36.8 C 36.8 C Heart Rate 84 Heart Rate [ 84 82 Brachial] Respiratory 20 20 20 Rate Blood Pressure Blood Pressure 112/75 118/51 L [Right Brachial artery] O2 Saturation 93 94 12/23/19 12/23/19 12/24/19 20:51 22:04 00:03 Temperature 36.7 C Heart Rate 77 Heart Rate [ 74 Brachial] Respiratory 20 20 Rate Blood Pressure 115/75 Blood Pressure 112/67 [Right Brachial artery] O2 Saturation 93 12/24/19 12/24/19 12/24/19 01:56 05:15 07:00 Temperature 36.7 C Heart Rate 79 80 Heart Rate [ 72 Brachial] Respiratory 20 16 20 Rate Blood Pressure Blood Pressure 125/71 [Right Brachial artery] O2 Saturation 93 12/24/19 12/24/19 12/24/19 07:33 07:59 11:28 Temperature 36.3 C L 36.7 C Heart Rate Heart Rate [ 80 72 Brachial] Respiratory 17 16 Rate Blood Pressure 128/66 Blood Pressure 128/66 119/71 [Right Brachial artery] O2 Saturation 93 94 12/24/19 11:32 Temperature Heart Rate 66 Heart Rate [ Brachial] Respiratory 20 Rate Blood Pressure Blood Pressure [Right Brachial artery] O2 Saturation Oxygen O2 Source Nasal cannula Oxygen Flow Rate 2 I&O (Last 24 Hrs): Intake and Output Totals x24h 12/22/19 12/23/19 12/24/19 23:59 23:59 23:59 Intake Total 3199.222 2279 850 Output Total 3550 900 Balance -853.347 8631 850 General: Alert, Oriented x3 HEENT: Mucous membr. moist/pink, Other (poor dentition) Neck: Supple Neuro: Alert, Non Focal Cardiovascular: Regular rate, No murmurs Respiratory: Other (Better air movement upper lung rojo, lowers have rhonchi, no wheezes heard) Abdomen: Soft Extremities: No edema - Results Results: Laboratory Results WBC 8.5 x10^3/uL (4.8-10.8) 12/24/19 04:50 RBC 3.82 10^6/uL (4.20-5.40) L 12/24/19 04:50 Hgb 13.1 g/dL (12.0-16.0) 12/24/19 04:50 Hct 37.0 % (37.0-47.0) 12/24/19 04:50 MCV 96.9 fL (81.0-99.0) 12/24/19 04:50 MCH 34.3 pg (27.0-31.0) H 12/24/19 04:50 MCHC 35.4 g/dL (32.0-36.0) 12/24/19 04:50 RDW 11.6 % (12.0-15.0) L 12/24/19 04:50 Plt Count 173 10^3/uL (130-450) 12/24/19 04:50 MPV 8.1 fL (7.9-10.8) 12/24/19 04:50 Neut # (Auto) 7.8 10^3/uL (1.5-6.6) H 12/24/19 04:50 Lymph # (Auto) 0.5 10^3/uL (1.5-3.5) L 12/24/19 04:50 [place] # (Auto) 0.3 10^3/uL (0.0-1.0) 12/24/19 04:50 Eos # (Auto) 0.0 10^3/uL (0.0-0.7) 12/24/19 04:50 Baso # (Auto) 0.0 10^3/uL (0.0-0.1) 12/24/19 04:50 Absolute Nucleated RBC 0.00 x10^3/uL 12/24/19 04:50 Nucleated RBC % 0.0 /100WBC 12/24/19 04:50 PT 11.8 secs (9.9-12.6) 12/21/19 21:30 INR 1.0 (0.8-1.2) 12/21/19 21:30 APTT 34.0 secs (24.9-33.3) H 12/21/19 21:30 Sodium 134 mmol/L (135-145) L 12/24/19 04:50 Potassium 3.0 mmol/L (3.5-5.0) L 12/24/19 04:50 Chloride 101 mmol/L (101-111) 12/24/19 04:50 Carbon Dioxide 24 mmol/L (21-32) 12/24/19 04:50 Anion Gap 9.0 (6-13) 12/24/19 04:50 BUN 17 mg/dL (6-20) 12/24/19 04:50 Creatinine 0.6 mg/dL (0.4-1.0) 12/24/19 04:50 Estimated GFR (MDRD) 97 (>89) 12/24/19 04:50 Glucose 154 mg/dL (70-100) H 12/24/19 04:50 Lactic Acid 1.2 mmol/L (0.5-2.2) 12/21/19 21:58 Calcium 8.9 mg/dL (8.5-10.3) 12/24/19 04:50 Phosphorus 2.9 mg/dL (2.5-4.6) 12/24/19 04:50 Magnesium 2.3 mg/dL (1.7-2.8) 12/24/19 04:50 Total Bilirubin 0.2 mg/dL (0.2-1.0) 12/23/19 05:20 Direct Bilirubin < 0.1 mg/dL (0.1-0.5) L 12/23/19 05:20 AST 19 IU/L (10-42) 12/23/19 05:20 ALT 15 IU/L (10-60) 12/23/19 05:20 Alkaline Phosphatase 54 IU/L (42-121) 12/23/19 05:20 Total Creatine Kinase 67 IU/L (22-269) 12/21/19 21:30 Troponin I High Sens 2.9 ng/L (2.3-14.8) 12/21/19 21:30 B-Natriuretic Peptide 24 pg/mL (5-100) 12/21/19 21:30 Total Protein 6.3 g/dL (6.7-8.2) L 12/23/19 05:20 Albumin 3.7 g/dL (3.2-5.5) 12/23/19 05:20 Globulin 2.6 g/dL (2.1-4.2) 12/23/19 05:20 Albumin/Globulin Ratio 1.5 (1.0-2.2) 12/21/19 21:30 Lipase 32 U/L (22-51) 12/21/19 21:30 Influenza A (Rapid) Negative (Negative) 12/21/19 21:58 Influenza B (Rapid) Negative (Negative) 12/21/19 21:58 - Procedures Procedures: Procedures TOTAL HIP REPLACEMENT (06/10/13)
[2019-12-24] MEDS: polyethylene glycoL 3350 17 GM PACKET PO SCH (16:30)
[2019-12-24] MEDS: LACTOBACILLUS RHAMNOSUS GG CAPSULE PO SCH (16:31)
[2019-12-24] MEDS: MONTELUKAST 10 MG TABLET PO SCH (21:36)
[2019-12-24] MEDS: ACETAMINOPHEN 325 MG TABLET PO PRN (21:40)
[2019-12-25] MEDS: IPRATROPIUM/ALBUTEROL 3 ML NEB INH SCH ×2 (04:51→11:01)
[2019-12-25] MEDS: guaiFENesin 100 MG/5 ML UDC PO PRN (05:35)
[2019-12-25] MEDS: SODIUM CHLORIDE FLUSH 0.9% 10 ML SYRINGE IVP PRN (05:36)
[2019-12-25] MEDS: KETOROLAC 30 MG/ML VIAL IVP PRN (05:36)
[2019-12-25] MEDS: methylPREDNISolone SUCCINATE 125 MG/2 ML VIAL IVP SCH (05:37)
[2019-12-25] MEDS: cefTRIAXone 1 GM in SODIUM CHLORIDE 0.9% MINIBAG 100 ML IV SCH (08:51)
[2019-12-25] MEDS: amLODIPine 5 MG TABLET PO SCH (08:53)
[2019-12-25] MEDS: guaiFENesin 600 MG TABLET PO SCH (08:54)
[2019-12-25] MEDS: AZITHROMYCIN 250 MG TABLET PO SCH (08:55)
[2019-12-25] MEDS: METOPROLOL TARTRATE 25 MG TABLET PO SCH (08:55)
[2019-12-25] MEDS: polyethylene glycoL 3350 17 GM PACKET PO SCH (08:57)
[2019-12-25] MEDS: LACTOBACILLUS RHAMNOSUS GG CAPSULE PO SCH (08:58)
[2019-12-25] MEDS: SODIUM CHLORIDE FLUSH 0.9% 10 ML SYRINGE IVP SCH (08:59)
[2019-12-25] MEDS ORDERED: SENNA 8.6 MG TABLET PO SCH (09:00)
[2019-12-25] MEDS: ASPIRIN EC 81 MG TABLET PO SCH (09:06)
[2019-12-25] MEDS: ENOXAPARIN 40 MG/0.4 ML SYRINGE SUBQ SCH (10:16)
--- NOTE | 2019-12-25 10:38 | Discharge Plan ---
Discharge Plan Problem Reviewed?: Yes Disposition: Home, Self Care Condition: Stable Prescriptions: Ipratropium/Albuterol [Duoneb] 3 ml INH Q4HR #14 neb Cephalexin [Keflex] 500 mg PO BID #8 capsule Fluticasone/Salmeterol [Advair 250-50 Diskus] 1 each IH BID #1 blst.w.dev guaiFENesin [Mucinex] 600 mg PO BID #14 tablet Ibuprofen [Motrin] 600 mg PO Q6H PRN #30 tab PRN Reason: Pain Lactobacillus Rhamnosus GG [Culturelle] 1 cap PO DAILY #4 capsule Montelukast [Singulair] 10 mg PO QPM #30 tablet predniSONE [Prednisone] 20 mg PO DAILY #21 tablet Tiotropium [place] [Spiriva Respimat] 4 gm IH DAILY #1 mist.inhal Diet: Regular Activity Restrictions: Activity as Tolerated Shower Restrictions: No Health Concerns: You were admitted with exacerbation of your COPD, acute bronchitis with productive cough, and needed treatment of rib cage pain from your coughing spasms. You are being discharged home to take several more days of antibiotics with probiotics, the oral steroid Prednisone on a very slow tapering down schedule, and new prescriptions for nebulizers and inhalers plus new Singulair every night. There is also a prescription for Motrin 600 mg to take if needed for the rib cage pain. The prescriptions were electronically sent to your [facility] pharmacy. All your other medications should be resumed as you took before hospitalization. Oxygen settings on your home oxygen machine should be: none or 1L oxygen at rest, and 1-2L oxygen with activity. Continue to follow the nationwide recommendations for social distancing, and continue home activity for your pulmonary rehab. Plan of Treatment: As above. Care Goals: Improvement of symptoms and stabilization are the goals. Assessment: Patient understands and is agreeable with the plan. Additional Instructions or Follow Up instructions: You should see your PCP in 1 to 2 weeks for hospital follow-up. If you have new or worsening symptoms, call your PCP for advice or come to the ER. Follow-Up Care: [facility] - Pulmonary No Smoking: If you smoke, Please STOP! Call for help. Follow-up with: Tim Castro DO [Primary Care Provider] -
--- NOTE | 2019-12-25 10:55 | DISCHARGE SUMMARY ---
Discharge Summary Admit Date: 12/21/19 Discharge Date: 12/25/19 Discharging Provider: Dr Wendy Drake Code Status: Do Not Attempt Resuscitation Condition at Discharge: Stable Discharge Disposition: 01 Home, Self Care - DIAGNOSES Admission Diagnoses: (1) COPD exacerbation (2) Chronic respiratory failure with hypoxia (3) Hyponatremia (4) Hypertension Discharge Diagnoses with Status of Each Condition: See below - HPI History of Present Illness: From the admission H&P of Dr Denis Mcguire: This is a 74-year-old female with a past medical history significant for COPD on 2 L of oxygen, hypertension who presents today complaining of worsening shortness of breath. She states her symptoms began about 3 to 4 days ago and have slowly progressed. Today she states she felt really short of breath and that is why she sought medical attention. She has been taking her albuterol nebulizer 4 times a day with only minimal improvement. She is not on any inhaler therapy except for the albuterol nebulizer. She states she been so short of breath that she has not really left the house much and has been unable to sleep due to her cough. She has some chest pain with her cough that is pleuritic in nature. Her cough is nonproductive. She reports no fevers or chills. She did have a flu vaccine earlier this year. Reports no recent sick contacts or travel. She states that when she does leave the house, she has been keeping her distance away from other people. He was last hospitalized for CP exacerbation back in July and that is when she was placed on oxygen. She has not seen a director counseling bureau. She did smoke a pack a day for about 30 years but quit this past July. In the emergency department, she is found to be afebrile with temperature of 36.7 C. She was not tachycardic and her heart rate was in the 70s. Blood pr essure is 146/93. She was tachypneic with respiratory rate in the high 20s and low 30s. She was saturating mid 90s on 2 L of oxygen via nasal cannula which is her baseline. Labs are unremarkable except for sodium of 130. Influenza is negative. Her chest x-ray shows no acute cardiopulmonary disease. She received 3 nebulizer treatments in emerge department with only minimal improvement in her symptoms. Given her ongoing dyspnea, she will be admitted for further management of her COPD. She wants no CPR or shocking, but would agree to intubation. - HOSPITAL COURSE Hospital Course: (1) COPD exacerbation She was started on empiric antibiotics for her bronchitis, and nebs, Mucinex and Solumedrol 40 mg iv bid. She was still tachypneic and very tight with diffuse wheezing and rhonchi even after 2 days. A CXR was repeated and showed no infiltrate yet again. She was made Inpatient status and we increased the iv Solumedrol from 40 bid to 80 tid, which finally helped, along with scheduled nebs, Mucinex, Tessalon perles prn, evening Singulair and Robitussin liquid prn. There was not typical findings of Coronavirus (no fever, infiltrates or lymphopenia, therefore she was not tested for COVID while here. She was discharged home with a new nebulizer order, a slow Prednisone taper over 4 weeks, Mucinex, Singulair, several more days of Keflex antibiotic, new Spiriva inhaler and new Advair discus inhaler. (2) Respiratory failure with hypoxia She still had marked tachypnea with ambulation to bathroom for most of her stay here. She uses n.c. O2 at home and here. At discharge she was tested for different O2 home settings, but required no change. (3) Pleuritic chest pain By the 3rd day she complained of severe rib cage pain from the frequent coughing spasms. She is allergic to Codeine, Morphine and Dilaudid. Ketolorac iv prn pain was ordered and she was discharged to take Motrin prn rib cage pain. (4) Hypokalemia This was replaced. (5) Hypertension BP was stable on home meds of Metoprolol and Amlodipine. (6) Hyponatremia Improved with 1 day of iv NS hydration which was then stopped. - ALLERGIES Allergies/Adverse Reactions: Allergies Allergy/AdvReac Type Severity Reaction Status Date / Time venom-honey bee Allergy Severe Respiratory Verified 12/21/19 21:43 [bee venom (honey bee)] codeine [Codeine] Allergy Rash Verified 12/21/19 21:43 meperidine HCl * Allergy Emesis Verified 12/21/19 21:43 [From Demerol] morphine Allergy Itching Verified 12/22/19 06:58 Penicillins Allergy Rash Verified 12/21/19 21:43 tetracycline [Tetracycline] Allergy Rash Verified 12/21/19 21:43 - MEDICATIONS Home Medications: Ambulatory Orders Medication Instructions Recorded Confirmed Acetaminophen [Pain Relief] 1,000 mg PO BID PRN 06/04/13 12/21/19 Aspirin EC [Ecotrin] 81 mg PO DAILY 06/04/13 12/21/19 Albuterol Sulf [Ventolin Hfa 1 - 2 puffs INH Q4HR PRN #1 inhaler 07/28/18 12/21/19 Inhaler] Amlodipine Besylate [Norvasc] 10 mg PO DAILY 07/24/19 12/21/19 Metoprolol Tartrate [Lopressor] 25 mg PO BID 07/24/19 12/21/19 Cephalexin [Keflex] 500 mg PO BID #8 capsule 12/25/19 Fluticasone/Salmeterol [Advair 1 each IH BID #1 blst.w.dev 12/25/19 250-50 Diskus] Ibuprofen [Motrin] 600 mg PO Q6H PRN #30 tab 12/25/19 Ipratropium/Albuterol [Duoneb] 3 ml INH Q4HR #14 neb 12/25/19 Lactobacillus Rhamnosus GG 1 cap PO DAILY #4 capsule 12/25/19 [Culturelle] Montelukast [Singulair] 10 mg PO QPM #30 tablet 12/25/19 Tiotropium [place] [Spiriva 4 gm IH DAILY #1 mist.inhal 12/25/19 Respimat] guaiFENesin [Mucinex] 600 mg PO BID #14 tablet 12/25/19 predniSONE [Prednisone] 20 mg PO DAILY #21 tablet 12/25/19 - PHYSICAL EXAM AT DISCHARGE General Appearance: positive: No acute distress, Alert Eyes Bilateral: positive: Normal inspection, EOMI ENT: positive: ENT inspection nml, Other (Edentulous, cachexic) Neck: positive: Nml inspection, No JVD Respiratory: positive: No respiratory distress, Breath sounds nml, Other (Increased AP diameter.) Abdomen: positive: Non-tender, No distention Skin: positive: Color nml Extremities: positive: No pedal edema - LABS Result Diagrams: 12/24/19 04:50 12/24/19 04:50 - DIAGNOSTIC IMAGING Diagnostic Imaging Results: Final report reviewed - FOLLOW UP Follow Up: See PCP in 1-2 weeks. - TIME SPENT Time Spent in Discharge (Minutes): 60
[2019-12-25 11:00] VITALS: BP 124/76
== END 2019-12-25 13:21 | disposition home or self-care (01) | DRG 191 ==
LOC: EDUNIT# → ED 21:24 → MS2 23:01 → OBSVTOIN 12-23 11:19
PROVIDERS: ADMIT Internal Medicine; ATTEND Internal Medicine
DX: J44.1 Chronic obstructive pulmonary disease with (acute) exacerbation (principal); J96.11 Chronic respiratory failure with hypoxia; E87.1 Hypo-osmolality and hyponatremia; M19.90 Unspecified osteoarthritis, unspecified site; J44.0 Chronic obstructive pulmonary disease with (acute) lower respiratory infection; J20.9 Acute bronchitis, unspecified; R07.81 Pleurodynia; E87.6 Hypokalemia; I10 Essential (primary) hypertension; Z66 Do not resuscitate; Z96.649 Presence of unspecified artificial hip joint; Z99.81 Dependence on supplemental oxygen; Z79.51 Long term (current) use of inhaled steroids; Z79.82 Long term (current) use of aspirin; Z87.891 Personal history of nicotine dependence
CPT/HCPCS: 36415; 71045; 80048; 80053; 80076; 82550; 83605; 83690; 83735; 83880; 84100; 84484; 85025; 85610; 85730; 87040; 87275; 87276; 93005; 94640; 94761; 96361; 96365; 96366; 96367; 96372; 96375; 96376; 99285; 99291; A9270; G0378; J1650

== ENCOUNTER 2020-04-07 08:30 | Outpatient (CLI) | payer MEDICARE ==
[2020-04-07 08:48] LABS: CALCIUM 9.1 mg/dL (8.5-10.3); CREATININE 0.7 mg/dL (0.4-1.0); MAGNESIUM 2.3 mg/dL (1.7-2.8)
== END 2020-04-07 08:31 | disposition home or self-care (01) ==
LOC: LAB 08:30
PROVIDERS: ATTEND Family Medicine
DX: E87.6 Hypokalemia (principal)
CPT/HCPCS: 36415; 80048; 83735

== ENCOUNTER 2020-04-21 14:39 | Inpatient (IN) | payer MEDICARE ==
[2020-04-21] MEDS ORDERED: methylPREDNISolone SUCCINATE 125 MG/2 ML VIAL IVP STA (15:19)
[2020-04-21] MEDS ORDERED: ALBUTEROL NEB 2.5 MG/3 ML INH STA (15:20)
[2020-04-21] MEDS ORDERED: IPRATROPIUM/ALBUTEROL 3 ML NEB INH STA (15:20)
[2020-04-21 15:33] LABS: BASOPHILS % (AUTO) 1.1 %; EOSINOPHILS % (AUTO) 14.8 %; LYMPHOCYTES % (AUTO) 18.3 %; MEAN CORPUSCULAR HEMOGLOBIN 35.2 pg (27.0-31.0); MEAN CORPUSCULAR VOLUME 97.7 fL (81.0-99.0); MEAN PLATELET VOLUME 7.9 fL (7.9-10.8); MONOCYTES % (AUTO) 10.5 %; PLT - PLATELET COUNT 193 10^3/uL (130-450); RED BLOOD COUNT 3.98 10^6/uL (4.20-5.40); RED CELL DISTRIBUTION WIDTH 12.7 % (12.0-15.0); WHITE BLOOD COUNT 7.2 x10^3/uL (4.8-10.8)
[2020-04-21 15:35] LABS: ABNORMAL LYMPHS % (MANUAL) 0 %; BAND NEUTROPHILS % (MANUAL) 0 %
--- NOTE | 2020-04-21 15:42 | XRAY Report ---
PROCEDURE: Chest 1 View X-Ray INDICATIONS: Chest pain TECHNIQUE: One view of the chest was acquired. COMPARISON: CXR 03/08/2020, 12/23/2019. CT chest 07/25/2019. FINDINGS: Surgical changes and devices: None. Lungs and pleura: No pleural effusions or pneumothorax. Emphysematous change with increased lung vol umes. The lungs appear clear. Mediastinum: Mediastinal contours appear normal. Heart size is normal. Bones and chest wall: No suspicious bony lesions. Overlying soft tissues appear unremarkable. IMPRESSION: No acute cardiopulmonary abnormality. Emphysematous change. Reviewed by: Simeon Singleton MD on 04/21/2020 3:41 PM PDT Approved by: Simeon Singleton MD on 04/21/2020 3:41 PM PDT Station ID: [id number]
[2020-04-21 15:45] LABS: ALBUMIN 4.6 g/dL (3.2-5.5); ALBUMIN/GLOBULIN RATIO 1.6 (1.0-2.2); CALCIUM 9.8 mg/dL (8.5-10.3); CREATININE 0.6 mg/dL (0.4-1.0); TOTAL PROTEIN 7.5 g/dL (6.7-8.2)
[2020-04-21 16:06] LABS: BASOPHILS # (MANUAL) 0.1 10^3/uL (0-0.1); BASOPHILS % (MANUAL) 1 %; DIFFERENTIAL COMMENT MANUAL DIFFERENTIAL; EOSINOPHILS # (MANUAL) 0.5 10^3/uL (0-0.7); LYMPHOCYTES # (MANUAL) 1.8 10^3/uL (1.5-3.5); LYMPHOCYTES % (MANUAL) 25 %; MONOCYTES # (MANUAL) 0.6 10^3/uL (0.0-1.0); PLATELET ESTIMATE, MANUAL NORMAL (130-450,000) (NORMAL); PLATELET MORPHOLOGY NORMAL APPEARANCE (NORMAL); RBC MORPHOLOGY (MULTIPLE) NORMAL APPEARANCE (NORMAL)
--- NOTE | 2020-04-21 16:09 | ED Physician Documentation ---
History of Present Illness - Stated complaint Stated Complaint: SOA,ANKLE SWELLING - Chief complaint Chief Complaint: Resp - History obtained from History obtained from: Patient - History of Present Illness Timing: How many days ago (several) Pain level max: 0 Pain level now: 0 - Additonal information Additional information: 74-year-old female with a history of COPD presents to the emergency department stating that she has had increased breathing difficulties over the past several days. She recently started smoking again after her dog . She states she has quit again. Has been using her nebulizers at home without relief. She is on 3 L of oxygen at usually. She states that she lives in a 35 foot home and cannot walk from one end to the other without stopping several times. She states sometimes she has to crawl she is so short of breath. She has been on steroid tapers in the past. She is currently not on any steroids. Review of Systems Ten Systems: 10 systems reviewed and negative Constitutional: denies: Fever, Chills Nose: denies: Rhinorrhea / runny nose, Congestion Throat: denies: Sore throat Cardiac: denies: Chest pain / pressure Respiratory: reports: Dyspnea, Wheezing. denies: Cough GI: denies: Nausea, Vomiting, Diarrhea : denies: Dysuria Skin: denies: Rash Musculoskeletal: denies: Neck pain, Back pain Neurologic: denies: Headache PD PAST MEDICAL HISTORY - Past Medical History Cardiovascular: Hypertension Respiratory: COPD, Pneumonia Neuro: None Endocrine/Autoimmune: None GI: None BLOOD TESTER: None : None HEENT: None Psych: None Musculoskeletal: Osteoarthritis Derm: None - Past Surgical History Past Surgical History: Yes General: Appendectomy, Colonoscopy Ortho: Hip replacement, Arthroscopic surgery /BLOOD TESTER: Hysterectomy, Oophrectomy HEENT: Tonsil/Adenoidectomy Derm: Skin cancer surgery - Present Medications Home Medications: Ambulatory Orders Medication Instructions Recorded Confirmed Acetaminophen [Pain Relief] 1,000 mg PO BID PRN 06/04/13 03/09/20 Aspirin EC [Ecotrin] 81 mg PO DAILY 06/04/13 03/09/20 Albuterol Sulf [Ventolin Hfa 1 - 2 puffs INH Q4HR PRN #1 inhaler 07/28/18 03/09/20 Inhaler] Amlodipine Besylate [Norvasc] 10 mg PO DAILY 07/24/19 03/09/20 Metoprolol Tartrate [Lopressor] 25 mg PO BID 07/24/19 03/09/20 Ipratropium/Albuterol [Duoneb] 3 ml INH Q4HR #14 neb 12/25/19 03/09/20 Lactobacillus Rhamnosus GG 1 cap PO DAILY #4 capsule 12/25/19 03/09/20 [Culturelle] Montelukast [Singulair] 10 mg PO QPM #30 tablet 12/25/19 03/09/20 Guaifenesin [Mucinex] 600 mg PO BID 03/09/20 03/09/20 Benzonatate [Tessalon] 100 mg PO TID PRN #10 capsule 03/12/20 Potassium Chloride 10 meq PO DAILY #10 tablet.er 03/12/20 predniSONE [Deltasone] 20 mg PO [id number] #21 tab 03/12/20 - Allergies Allergies/Adverse Reactions: Allergies Allergy/AdvReac Type Severity Reaction Status Date / Time venom-honey bee Allergy Severe Respiratory Verified 04/21/20 14:44 [bee venom (honey bee)] codeine [Codeine] Allergy Rash Verified 04/21/20 14:44 meperidine HCl * Allergy Emesis Verified 04/21/20 14:44 [From Demerol] morphine Allergy Itching Verified 04/21/20 14:44 Penicillins Allergy Rash Verified 04/21/20 14:44 tetracycline [Tetracycline] Allergy Rash Verified 04/21/20 14:44 - Social History Does the pt smoke?: Yes Smoking Status: Current every day smoker Does the pt drink ETOH?: Yes Does the pt have substance abuse?: No - Immunizations Immunizations are current?: Yes - POLST Patient has POLST: No POLST Status: DNR but ok with intubation. PD ED PE NORMAL - Vitals Vital signs reviewed: Yes - General General: Alert and oriented X 3, Other (mild resp distress, speaks 1-2 words at a time.) - HEENT HEENT: Moist mucous membranes, Pharynx benign - Neck Neck: Supple, no meningeal sign - Cardiac Cardiac: RRR - Respiratory Respiratory: Other (wheezing B, dimished breath sounds, tachypnea) - Abdomen Abdomen: Soft, Non tender, Non distended - Derm Derm: Warm and dry - Extremities Extremities: No calf tenderness / cord, Other (trace edema B) - Neuro Neuro: Alert and oriented X 3 Results - Vitals Vitals: Vital Signs - 24 hr 04/21/20 04/21/20 04/21/20 14:44 14:47 15:17 Temperature 36.7 C Heart Rate 95 92 89 Respiratory 30 H 26 H 16 Rate Blood Pressure 150/74 H 142/65 H 132/68 H O2 Saturation 92 96 95 04/21/20 15:35 Temperature Heart Rate 89 Respiratory 24 Rate Blood Pressure O2 Saturation Oxygen O2 Source Nasal cannula Oxygen Flow Rate 3 - EKG (time done) 1453 Rate: Rate (enter#) (89) Rhythm: NSR [place]: Normal Intervals: Normal [place] QRS: Normal Ischemia: Normal ST segments - Labs Labs: Laboratory Tests 04/21/20 04/21/20 15:22 15:22 WBC 7.2 RBC 3.98 L Hgb 14.0 Hct 38.9 MCV 97.7 MCH 35.2 H MCHC 36.0 RDW 12.7 Plt Count 193 MPV 7.9 Neut # (Auto) Not Reportable Lymph # (Auto) Not Reportable [place] # (Auto) Not Reportable Eos # (Auto) Not Reportable Baso # (Auto) Not Reportable Absolute Nucleated RBC Not Reportable Total Counted 100 Band Neuts % (Manual) 0 Abnorm Lymph % (Manual) 0 Nucleated RBC % Not Reportable Neutrophils # (Manual) 4.2 Lymphocytes # (Manual) 1.8 Monocytes # (Manual) 0.6 Eosinophils # (Manual) 0.5 Basophils # (Manual) 0.1 Differential Comment MANUAL DIFFERENTIAL Manual Slide Review Indicated WBC Morphology NORMAL APPEARANCE Platelet Estimate NORMAL (130-450,000) Platelet Morphology NORMAL APPEARANCE RBC Morph Micro Appear NORMAL APPEARANCE Sodium 132 L Potassium 3.5 Chloride 95 L Carbon Dioxide 26 Anion Gap 11.0 BUN 12 Creatinine 0.6 Estimated GFR (MDRD) 97 Glucose 111 H Calcium 9.8 Total Bilirubin 1.0 AST 21 ALT 19 Alkaline Phosphatase 88 Total Protein 7.5 Albumin 4.6 Globulin 2.9 Albumin/Globulin Ratio 1.6 Lipase 31 - Rads (name of study) cxr Radiology: Prelim report reviewed, EMP read contemporaneously, See rad report (Emphysematous change) PD MEDICAL DECISION MAKING - ED course Complexity details: reviewed old records, reviewed results, re-evaluated patient, considered differential, d/w patient, d/w business process consultant ED course: Patient with a COPD flare. Given Solu-Medrol, DuoNeb, albuterol. She still continues to be significantly short of breath. Is unable to even get out of bed. She will need inpatient care. Discussed the case with Dr. Giles, hospitalist who accepts. Unclear why the patient is not on any longer acting medications for home. Suspect this can be addressed while she is in the hospital. This document was made in part using voice recognition software. While efforts are made to proofread this document, sound alike and grammatical errors may occur. Departure - Departure Disposition: 66 [facility] DC/[facility] Clinical Impression: COPD exacerbation Condition: Stable
[2020-04-21] MEDS ORDERED: ONDANSETRON 4 MG/2 ML VIAL IVP PRN (16:25)
[2020-04-21] MEDS ORDERED: ONDANSETRON ODT 4 MG TABLET TL PRN (16:25)
--- NOTE | 2020-04-21 16:36 | HISTORY & PHYSICAL EXAMINATION ---
Chief Complaint - Chief Complaint Chief Complaint: chest pain/tightness History of Present Illness - Admitted From Admitted From:: Home/ER - History Obtained From Records Reviewed: [facility] History obtained from: patient and Dr. Fowler Exam Limitations: shortness of breath - History of Present Illness HPI Comment/Other: This unfortunate female is an ex-smoker who smoked about 1 pack/day for 50 years and ostensibly quit with her first admission for COPD exacerbation in July 2019. She has COPD and is on short acting bronchodilators. She is also on home oxygen of 3 L/min when she use to be on 2L in March. She is supposed to be on long-acting bronchodilators as well as short acting bronchodilators. However, she cannot afford the long-acting bronchodilator forms of Advair, Symbicort, Spiriva. She is in a severely limited income and she just cannot afford them. She was admitted July 2019, November 2019 (was discharged on Spiriva/Advair which she is not taking), and March 2020. He was last seen by Rafa Somers, pulmonology @ [facility] in [place] November 2018 for end stage lung disease. He was following her for chronic dyspnea. She was to be on a LAMA and LABA combination with intermittent steroids. Pulmonary function studies done with that visit in November showed an FEV1 of 1.1 L which was 47% of predicted and a DLCO of 9.2 which was 44% of predicted. At that time he added ICS, and azithromycin 3 times a week with low-dose prednisone daily for the next 2 months. He felt that she should be in pulmonary rehab. He mentions that he had done a bronchoscopy on her in 08/2018 for left lower lobe atelectasis which she called a "collapsed lung" seen on CT done for diverticulitis. His bronchoscopy did not show endobronchial lesions. Cultures were negative. The atelectasis was presumed to be from severe mucus plugging. Because she had elements of orthopnea, he ordered an echocardiogram. She has not seen him since November 2018. She has not been asked to do a follow-up with him. She is willing to do so. She did do cardiopulmonary rehab this year. Unfortunately, the COVID crisis hit, classes were canceled and she has been told that they may resume sometime in early May but she is not sure. She identifies her primary care provider as Marilou Castro. She has not had any recent travel. There is no one else sick at home. She lives alone. She started smoking again when her dog earlier this month but only smoked for 3 days. Over the last several days she has been increasingly short of breath, wheezing, and ambulation is become limited to 2 or 3 steps. She is always dyspneic on exertion and walking more than 15 feet is difficult. She lives in a 35 foot trailer. Now she is down to 2 or 3 steps. She denies fever, change in phlegm production, myalgias, change in bowel habits.Yesterday and today her dyspnea was so severe that she was crawling on the floor. She fe lt as if she were going to .She has been developing some leg edema and that was worrying her as well. Her chest was so tight that it hurt. But there was no radiation to her jaw. No diaphoresis. No palpitations. She was seen by Dr. Rosario in the emergency room and was alert and oriented. Temperature was 36.7. Heart rate 95. Respirations 30. Blood pressure 150/74 and she saturating 92% on 3 L. She was tachypneic, bilateral wheezing, diminished breath sounds. White cell count was 7.2. Chest x-ray had emphysematous changes but no infiltrate. After nebulizers and steroids her respiratory rate is down to 16. O2 sat is 95%. She is now admitted inpatient. We have admitted her inpatient is post observation because all of her stays have been greater than 2 midnights. History - Past Medical History Cardiovascular: reports: Hypertension Respiratory: reports: COPD, Pneumonia, Shortness of breath (Due to emphysema and a reduced diffusion capacity. Echocardiogram November 2018 with normal left ventricular size. Ejection fraction 65 to 70%. Right ventricle normal size and function. Both atria normal. Mild aortic sclerosis. RVSP at rest 31 mmHg.) Neuro: reports: None Endocrine/Autoimmune: reports: None GI: reports: GERD, Diverticulitis (with ER visit 2018, treated as outpatient) SHEET CATCHER: reports: Other (. A few months after the of her son, she was told that she had precancerous uterine lesion and she had a hysterectomy. ) : reports: None HEENT: reports: Chronic vision loss (Wears prescription glasses) Psych: reports: None Musculoskeletal: reports: Osteoarthritis Derm: reports: Other (severe stress induced neurodermatitis 2010. Seen by [facility]. Path on bx showed spongiotic dermatitis correlating with atopic dermatitis. Rsolved wtih clobetasol, desitin. Recurred 11/2013. ) MRSA Hx?: No - Past Surgical History General: reports: Appendectomy, Colonoscopy Ortho: reports: Hip replacement (right hip 06/2013), Arthroscopic surgery, Other (osteomyelitis back surgery) /SHEET CATCHER: reports: Hysterectomy, Oophrectomy, Other (lumpectomies in past with [facility] ) HEENT: reports: Tonsil/Adenoidectomy Derm: reports: Skin cancer surgery ([facility] for squamous cell ca both legs 08/2016) - Family & Social History Family History Comment/Other: She is adopted and is unaware of her family history. Living arrangement: At home Living Situation: Alone Social History Notes: She lives at home alone. Adopted daughter lives in [facility] and son lives in [facility]. She smoked a pack a day for at least 50 years but quit July 2019. Started again when dog this year. She drinks 2 glasses of wine on a daily basis. She denies going through withdrawal in the past. Denies any illicit drug use. She has lived in [place] for most of her life. Moved to [place] about 2004. 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 - POLST Patient has POLST: No POLST Status: DNR (no intubation this time. see ACP note.) Meds/Allgy - Home Medications Home Medications: Ambulatory Orders Medication Instructions Recorded Confirmed Acetaminophen [Pain Relief] 1,000 mg PO BID PRN 06/04/13 03/09/20 Aspirin EC [Ecotrin] 81 mg PO DAILY 06/04/13 03/09/20 Albuterol Sulf [Ventolin Hfa 1 - 2 puffs INH Q4HR PRN #1 inhaler 07/28/18 03/09/20 Inhaler] Amlodipine Besylate [Norvasc] 10 mg PO DAILY 07/24/19 03/09/20 Metoprolol Tartrate [Lopressor] 25 mg PO BID 07/24/19 03/09/20 Ipratropium/Albuterol [Duoneb] 3 ml INH Q4HR #14 neb 12/25/19 03/09/20 Lactobacillus Rhamnosus GG 1 cap PO DAILY #4 capsule 12/25/19 03/09/20 [Culturelle] Montelukast [Singulair] 10 mg PO QPM #30 tablet 12/25/19 03/09/20 Guaifenesin [Mucinex] 600 mg PO BID 03/09/20 03/09/20 Benzonatate [Tessalon] 100 mg PO TID PRN #10 capsule 03/12/20 Potassium Chloride 10 meq PO DAILY #10 tablet.er 03/12/20 predniSONE [Deltasone] 20 mg PO [id number] #21 tab 03/12/20 - Allergies Allergies/Adverse Reactions: Allergies Allergy/AdvReac Type Severity Reaction Status Date / Time venom-honey bee Allergy Severe Respiratory Verified 04/21/20 14:44 [bee venom (honey bee)] codeine [Codeine] Allergy Rash Verified 04/21/20 14:44 meperidine HCl * Allergy Emesis Verified 04/21/20 14:44 [From Demerol] morphine Allergy Itching Verified 04/21/20 14:44 Penicillins Allergy Rash Verified 04/21/20 14:44 tetracycline [Tetracycline] Allergy Rash Verified 04/21/20 14:44 Review of Systems - Constitutional Constitutional: reports: Fatigue, Poor appetite (She was so short of breath that her last meal was on Sunday (today is Sunday). She also has so little energy she is not able to cook for herself right now.) - Eyes Eyes: reports: Corrective lenses. denies: Pain, Irritation, Amaurosis, Blurred vision - Ears, Nose & Throat Ears, Nose & Throat: denies: Ear pain, Hearing loss, Hearing aids, Tinnitus, Nasal obstruction, Nasal congestion, Postnasal drainage, Sore throat, Hoarseness - Cardiovascular Cariovascular: reports: Chest pain (More tightness. Nonradiating.), Edema (Over the last 2 days.), Exertional dyspnea (Severe), Decr. exercise tolerance (Severe), Orthopnea (Over the last 2 nights. She has been waking up about every 2 hours.). denies: Irregular heart rate, Palpitations, Lightheadedness, Syncope - Respiratory Respiratory: reports: Cough, Sputum production, Wheezing, Orthopnea, SOB at rest, SOB with exertion, Pleuritic pain. denies: Snoring - Gastrointestinal Gastrointestinal: reports: Reflux/heartburn. denies: Abdominal pain, Abdominal distention, Constipation, Diarrhea, Change in bowel habits, Black stools, Bloody stools, Nausea, Vomiting - Genitourinary Genitourinary: denies: Dysuria, Frequency, Urgency, Hematuria, Incontinence - Musculoskeletal Musculoskeletal: reports: Muscle pain, Back pain (Muscle and back pain occur when she gets coughing spasms. She will cough so much that her rib cage, lumbar spine will start to ache tremendously.) - Integumentary Integumentary: denies: Rash, Pruritis, Lesions, Dryness - Neurological Neurological: reports: General weakness, Headache (Today from coughing so hard). 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 She can cook for herself. Dresses herself. Her best friend lives next order. Her best friend and her best friend's help her a lot. In the last few days, she has been able to do any cooking. Dyspnea exertion is so severe she is crawling on the floor. She was able to take shower yesterday but it took forever. Exam - Vital Signs Reviewed Vital Signs: Yes Vital Signs: Vital Signs x48h Temp Pulse Resp BP Pulse Ox 04/21/20 15:35 89 24 04/21/20 15:17 89 16 132/68 H 95 04/21/20 14:47 92 26 H 142/65 H 96 04/21/20 14:44 36.7 C 95 30 H 150/74 H 92 - Physical Exam General Appearance: positive: Alert, Mild distress, Other (She does appear cachectic, frail, sitting upright in bed with her best friend in the room with her. Weight July 2018, 56.1 kg. November 2019 57.13 kg. March 2020 53 kg.) Eyes Bilateral: positive: PERRL ENT: positive: Pharynx nml, Dry mucous membranes Neck: positive: No JVD. negative: Stiff neck, Carotid bruit Respiratory: positive: Chest non-tender, Wheezes, Other (Wheezes are faint, for the most part her lungs are quite silent. Poor airway excursion. Occasional rhonchi that clear with frequent cough. Speaking to me for this long has caused her to have increased respiratory effort. No use of accessory muscles.) Cardiovascular: positive: Regular rate & rhythm, Systolic murmur. negative: Gallop/S4 Peripheral Pulses: positive: 1+ Abdomen: positive: Non-tender, No organomegaly, Nml bowel sounds, No distention Skin: positive: Warm, Dry, Pallor Extremities: positive: Full ROM, Pedal edema Neurologic/Psychiatric: positive: Oriented x3, CN's nml (2-12), Motor nml, Sensation nml Conclusion/Plan - Problem List (1) COPD exacerbation Conclusion/Plan: This unfortunate patient has fairly severe disease that I would consider end- stage. I shared that observation with her and her friend. She is not on maximal medical therapy because of cost concerns. While she was in cardiopulmonary rehab, that was temporarily stopped because of COVID-19 restrictions. Plan: Inpatient status Empiric antibiotic therapy With Rocephin and azithromycin . She is no longer on azithromycin for months now 4 doses of IV steroids and then test to taper Inhaled via nebulizer steroids and long-acting bronchodilator. Call [facility], see if we can switch her medications to be delivered by them under Medicare part B and not Medicare part D. Resume cardiopulmonary rehab when open. I will contact them tomorrow. She would like her Mucinex resumed. She would also like Robitussin-AC. (2) Acute on chronic respiratory failure with hypoxia and hypercapnia Conclusion/Plan: I am presuming she has chronic hypoxia and hypercapnia on the basis of her anatomy and disease status. I am not going to be getting blood gases. Treatment will consist of the above.Advanced care planning conversation held with patient. Please see dictation under separate note. (3) Hypertension Conclusion/Plan: Resume amlodipine and metoprolol 25 twice daily. Qualifiers: Hypertension type: essential hypertension Qualified Code(s): I10 - Essential (primary) hypertension (4) Edema Conclusion/Plan: In a patient has orthopnea, dyspnea on exertion. The most obvious source would be her lung disease. Her last echocardiogram done over a year ago showed no pulmonary hypertension or right-sided heart failure. However, the edema is worsening, and she does have an murmur on exam. Plan: Repeat echocardiogram Qualifiers: Edema type: localized Qualified Code(s): R60.0 - Localized edema (5) Hyponatremia Conclusion/Plan: Seen in every admission so far. Not on diuretics. Not on serotonin reuptake inhibitors. Most likely due to hypovolemia - Lab Results Lab results reviewed: Yes Fish Bones: 04/21/20 15:22 04/21/20 15:22 - Diagnostic Imaging Results Diagnostic Imaging Results: positive: Final report reviewed Diagnostic Imaging Results Comments: No acute cardiopulmonary abnormality and emphysematous changes seen on chest x- ray. - EKG Results EKG Interpreted Independently: No Core Measures - Anticipated LOS I expect patient to be DC'd or transferred within 96 hours.: Yes - DVT/VTE - Prophylaxis VTE/DVT Device ordered at admit?: Yes
[2020-04-21] MEDS ORDERED: SODIUM CHLORIDE 0.9% 1,000 ML IV SCH (17:00)
[2020-04-21] MEDS: PANTOPRAZOLE 40 MG TABLET PO SCH (18:07)
[2020-04-21] MEDS: SODIUM CHLORIDE FLUSH 0.9% 10 ML SYRINGE IVP SCH ×2 (18:07→23:26)
--- NOTE | 2020-04-21 18:29 | ADVANCE CARE PLANNING NOTE ---
Advance Care Planning - Planning Encounter Date: 04/21/20 Time: 18:22 Purpose: establish code status and fill out POLST Parties in Attendance: Patient, hospitalist, and her best friend/nieghbor Decisional Capacity of the Patient: inact, alert, oriented and lucid historian - Diagnosis for Encounter (5) End stage COPD Summary: smoker all of her life for 50 years. on 3 L nasal canula. - Encounter Subjective/Patient's Story: She was born and raised in the [facility] and considers himself a [facility]. 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 She has been 4 times. First killed in [place]. #2 was a marine. She adopted a daughter with him. Irreconcilable differences. Has been #3 was an alcoholic. She did get with him and had her's son. #4 was a substance abuser, not alcohol, that she as well. Her mohamud of prosecuting attorney are delegated to both her son and daughter. But she is never had paperwork to that end. 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 She got to meet the [employer] account manager sales representative in [place]. She ended up leaving up her job in [place] The [employer] account manager sales representative was then her neighbor. He introduced her to his and she has become best friends with his . They help her out a lot as she is gotten weaker with her emphysema. Finances are a definite issue. Because of that reason she is been unable to afford long-acting bronchodilator therapy. She has had a couple of occasions where she is run out of bronchodilator therapy. She was close to running out again this week, tried to call [facility] and got nowhere. So she had Dr. Luna call in some medicine to [facility] pharmacy where it is waiting for her. She was terrified she is going to run out again. Over the last 10 years she has become increasingly dyspneic. Emphysema was a diagnosis. Starting in 2017 started to have episodes severe enough that she needed oxygen. Initially was 1 L, in 2018 it was 2 L, and now she is on 3 L. She has been slowly losing weight but not severely so. Appetite goes down the more short of breath she is. She is able to dress herself, feed herself. Definitely takes a bath because she cannot stand being "stinky". Has no history of skin breakdown. Does not use any durable medical equipment. But when she is very short of breath, as she is now, she cannot eat because she has no appetite and she does not have the energy to make anything. Today she was so short of breath she was crawling on the floor trying to get to the bathroom. She would like to be DO NOT RESUSCITATE. Initially she thought she would like to be intubated if she got that sick, but is come to realize that she will not have a good quality of life if she does survive a resuscitative event. As such she wants to make sure she is a DO NOT RESUSCITATE with DO NOT INTUBATE. Goals of Care: She would like to stay as independent for as long as possible. She does not have the finances to hire in-home support, and never wants to be in a halfway. As such she would like to stay in her own home, have her friend help more for as long as possible. When the time comes she will then discuss probable palliative transition to hospice care. However she is still wanting to be hospitalized, would like nebulizers, steroids, antibiotics. Anything that is reversible and treatable she would like to be treated for. She would also like to finish cardiopulmonary rehab. Plan: 1. Fill out a pulsed form today for DO NOT RESUSCITATE 2. I will call [facility] to see if we can transition her to a less expensive nebulizer treatment system using Medicare part B 3. Fill out the paperwork that make her children power of prosecuting attorney 4. Call cardiopulmonary rehab tomorrow to see where she is in their queue Code Status: Do Not Attempt Resuscitation Time spent on advance care plannin minutes
[2020-04-21] MEDS ORDERED: guaiFENesin/CODEINE 5 ML UDC PO PRN (18:38)
[2020-04-21] MEDS: BENZOCAINE/MENTHOL LOZENGE MM PRN ×2 (18:44→23:51)
[2020-04-21] MEDS: ACETAMINOPHEN 325 MG TABLET PO PRN ×2 (18:57→23:55)
[2020-04-21] MEDS ORDERED: cefTRIAXone 1 GM in SODIUM CHLORIDE 0.9% MINIBAG 100 ML IV SCH (19:00)
[2020-04-21] MEDS: FORMOTEROL FUMARATE NEB 20 MCG/2 ML INH SCH (19:24)
[2020-04-21] MEDS: BUDESONIDE 0.5 MG/2 ML NEB INH SCH (19:24)
[2020-04-21] MEDS: IPRATROPIUM/ALBUTEROL 3 ML NEB INH SCH (19:24)
[2020-04-21] MEDS: guaiFENesin/DEXTROMETHORPHAN 10 ML UDC PO PRN (19:56)
[2020-04-21] MEDS ORDERED: AZITHROMYCIN INJ 500 MG in SODIUM CHLORIDE 0.9% 250 ML IV SCH (20:00)
[2020-04-21] MEDS: guaiFENesin 600 MG TABLET PO SCH (21:57)
[2020-04-21] MEDS: methylPREDNISolone SUCCINATE 40 MG/ML VIAL IVP SCH (21:57)
[2020-04-21] MEDS: METOPROLOL TARTRATE 25 MG TABLET PO SCH (21:58)
[2020-04-22] MEDS: guaiFENesin/DEXTROMETHORPHAN 10 ML UDC PO PRN ×3 (04:32→20:10)
[2020-04-22] MEDS: ALBUTEROL NEB 2.5 MG/3 ML INH PRN (04:45)
[2020-04-22] MEDS: SODIUM CHLORIDE FLUSH 0.9% 10 ML SYRINGE IVP PRN ×2 (05:24→12:51)
[2020-04-22] MEDS: methylPREDNISolone SUCCINATE 40 MG/ML VIAL IVP SCH ×3 (05:24→21:59)
[2020-04-22] MEDS: PANTOPRAZOLE 40 MG TABLET PO SCH (05:24)
[2020-04-22] MEDS: ACETAMINOPHEN 325 MG TABLET PO PRN ×2 (05:30→18:36)
[2020-04-22] MEDS: IPRATROPIUM/ALBUTEROL 3 ML NEB INH SCH ×4 (07:28→19:39)
[2020-04-22] MEDS: FORMOTEROL FUMARATE NEB 20 MCG/2 ML INH SCH ×2 (07:28→19:39)
[2020-04-22] MEDS: BUDESONIDE 0.5 MG/2 ML NEB INH SCH ×2 (07:28→19:39)
--- NOTE | 2020-04-22 07:28 | PROVIDER PROGRESS NOTE ---
Subjective - Prog Note Date Prog Note Date: 04/22/20 Prog Note Time: 16:08 - Subjective Pt reports feeling: Improved Subjective: feeling better and can feel loosening in her chest. not so tight but coughing spasms severe especially w duoneb. otherwise able to get up to bed side commode. exhausted and out of breath with that. Current Medications - Current Medications Current Medications: Active Medications Acetaminophen (Tylenol) 650 mg PO Q4HR PRN PRN Reason: Pain 1 to 4 Last Admin: 04/22/20 05:30 Dose: 650 mg Documented by: Albuterol () 2.5 mg INH RTQ4H PRN PRN Reason: Wheezing Last Admin: 04/22/20 04:45 Dose: 2.5 mg Documented by: Albuterol/Ipratropium (Duoneb) 3 ml INH RTQID JOAQUIN Last Admin: 04/22/20 07:28 Dose: 3 ml Documented by: Amlodipine Besylate (Norvasc) 5 mg PO DAILY [facility] Budesonide (Pulmicort) 0.5 mg INH RTBID [facility] Last Admin: 04/22/20 07:28 Dose: 0.5 mg Documented by: Enoxaparin Sodium (Lovenox) 40 mg SUBQ DAILY [facility] Formoterol Fumarate (Perforomist) 20 mcg INH RTBID [facility] Last Admin: 04/22/20 07:28 Dose: 20 mcg Documented by: Guaifenesin (Mucinex) 600 mg PO BID [facility] Last Admin: 04/21/20 21:57 Dose: 600 mg Documented by: Guaifenesin (Robitussin Dm) 10 ml PO Q6HR PRN PRN Reason: Cough Last Admin: 04/22/20 04:32 Dose: 10 ml Documented by: Ceftriaxone Sodium 1 gm/ (Sodium Chloride) 100 mls @ 200 mls/hr IV Q24H [facility] Last Infusion: 04/21/20 20:25 Dose: Infused Documented by: Azithromycin 500 mg/ Sodium (Chloride) 250 mls @ 250 mls/hr IV Q24H [facility] Stop: 04/23/20 20:59 Last Infusion: 04/21/20 22:54 Dose: Infused Documented by: Methylprednisolone (Solu-Medrol (40mg Vial)) 40 mg IVP TID [facility] Stop: 04/22/20 22:01 Last Admin: 04/22/20 05:24 Dose: 40 mg Documented by: Metoprolol Tartrate (Lopressor) 25 mg PO BID [facility] Last Admin: 04/21/20 21:58 Dose: 25 mg Documented by: Ondansetron HCl (Zofran Odt) 4 mg TL Q6HR PRN PRN Reason: Nausea / Vomiting Ondansetron HCl (Zofran Inj) 4 mg IVP Q6HR PRN PRN Reason: Nausea / Vomiting Oxycodone HCl (Roxicodone) 5 mg PO Q4HR PRN PRN Reason: Pain 5 to 7 Pantoprazole Sodium (Protonix) 40 mg PO QDAC [facility] Last Admin: 04/22/20 05:24 Dose: 40 mg Documented by: Sodium Chloride (Normal Saline Flush 0.9%) 10 ml IVP PRN PRN PRN Reason: NEEDED PER PROVIDER ORDERS Last Admin: 04/22/20 05:24 Dose: 10 ml Documented by: Sodium Chloride (Normal Saline Flush 0.9%) 10 ml IVP 0100,0900,1700 [facility] Last Admin: 04/21/20 23:26 Dose: Not Given Documented by: Throat Lozenges (Cepacol) 1 lozenge MM Q2HR PRN PRN Reason: Throat pain Last Admin: 04/21/20 23:51 Dose: 1 lozenge Documented by: Acetaminophen [Pain Relief] 1,000 mg PO BID PRN 06/04/13 Aspirin EC [Ecotrin] 81 mg PO DAILY 06/04/13 Amlodipine Besylate [Norvasc] 10 mg PO DAILY 07/24/19 Metoprolol Tartrate [Lopressor] 25 mg PO BID 07/24/19 Guaifenesin [Mucinex] 600 mg PO BID 03/09/20 Objective - Vital Signs/Intake & Output Reviewed Vital Signs: Yes Vital Signs: Vital Signs x48h Temp Pulse Pulse Resp BP Pulse Ox 04/22/20 04:45 83 18 04/22/20 04:35 36.7 C 88 22 131/81 H 94 04/21/20 23:42 36.6 C 85 20 109/75 94 Intake & Output: Intake & Output 04/19/20 04/20/20 04/21/20 04/22/20 23:59 23:59 23:59 23:59 Intake Total 820 1000 Output Total 250 700 Balance 570 300 - Objective General Appearance: positive: No acute distress, Alert, Other (Cachectic white female, during my exams has 2 coughing spasms that make her lose her breath, and gets deeply red in the face.) Eyes Bilateral: positive: PERRL ENT: positive: Pharynx nml Neck: positive: Thyroid nml, No JVD. negative: Stiff neck Respiratory: positive: Chest non-tender, Other (She has less tachypnea, less use of accessory muscles. Able to have an almost normal conversation without coughing or being short of breath. Lungs are very tight yesterday, almost silent but today loose rhonchus air sounds. Still with bilateral wheezing.) Cardiovascular: positive: Regular rate & rhythm, Systolic murmur. negative: Gallop/S4, Friction rub Abdomen: positive: Non-tender, No organomegaly, Nml bowel sounds, No distention Skin: positive: Warm, Dry Extremities: positive: Full ROM, No pedal edema Neurologic/Psychiatric: positive: Oriented x3, CN's nml (2-12), Motor nml - Lab Results Fish Bones: 04/21/20 15:22 04/21/20 15:22 Other Labs: Lab Results x24hrs 04/21/20 04/21/20 Range/Units 15:22 15:22 WBC 7.2 (4.8-10.8) x10^3/uL RBC 3.98 L (4.20-5.40) 10^6/uL Hgb 14.0 (12.0-16.0) g/dL Hct 38.9 (37.0-47.0) % MCV 97.7 (81.0-99.0) fL MCH 35.2 H (27.0-31.0) pg MCHC 36.0 (32.0-36.0) g/dL RDW 12.7 (12.0-15.0) % Plt Count 193 (130-450) 10^3/uL MPV 7.9 (7.9-10.8) fL Neut # (Auto) Not Reportable Lymph # (Auto) Not Reportable Rusk # (Auto) Not Reportable Eos # (Auto) Not Reportable Baso # (Auto) Not Reportable Absolute Nucleated RBC Not Reportable Total Counted 100 Band Neuts % (Manual) 0 (0 - 10) % Abnorm Lymph % (Manual) 0 % Nucleated RBC % Not Reportable Neutrophils # (Manual) 4.2 (1.5-6.6) 10^3/uL Lymphocytes # (Manual) 1.8 (1.5-3.5) 10^3/uL Monocytes # (Manual) 0.6 (0.0-1.0) 10^3/uL Eosinophils # (Manual) 0.5 (0-0.7) 10^3/uL Basophils # (Manual) 0.1 (0-0.1) 10^3/uL Differential Comment MANUAL DIFFERENTIAL Manual Slide Review Indicated WBC Morphology NORMAL APPEARANCE (NORMAL) Platelet Estimate NORMAL (130-450,000) (NORMAL) Platelet Morphology NORMAL APPEARANCE (NORMAL) RBC Morph Micro Appear NORMAL APPEARANCE (NORMAL) Sodium 132 L (135-145) mmol/L Potassium 3.5 (3.5-5.0) mmol/L Chloride 95 L (101-111) mmol/L Carbon Dioxide 26 (21-32) mmol/L Anion Gap 11.0 (6-13) BUN 12 (6-20) mg/dL Creatinine 0.6 (0.4-1.0) mg/dL Estimated GFR (MDRD) 97 (>89) Glucose 111 H (70-100) mg/dL Calcium 9.8 (8.5-10.3) mg/dL Total Bilirubin 1.0 (0.2-1.0) mg/dL AST 21 (10-42) IU/L ALT 19 (10-60) IU/L Alkaline Phosphatase 88 (42-121) IU/L Total Protein 7.5 (6.7-8.2) g/dL Albumin 4.6 (3.2-5.5) g/dL Globulin 2.9 (2.1-4.2) g/dL Albumin/Globulin Ratio 1.6 (1.0-2.2) Lipase 31 (22-51) U/L ABX Reporting Has patient been on IV antibiotics over the past 48 hours?: Yes Assessment/Plan - Problem List (1) Acute on chronic respiratory failure with hypoxia and hypercapnia Impression: This unfortunate patient has fairly severe disease that I would consider end- stage. I shared that observation with her and her friend on admisson. She is not on maximal medical therapy because of cost concerns. While she was in cardiopulmonary rehab, that was temporarily stopped because of COVID-19 restrictions. Empiric antibiotic therapy With Rocephin and azithromycin, Day #[address] Mcgraw @[phone] to make sure she stays on his radar. He was off this week since he did ICU last week. So I left message for him to call me or to consider finding samples of the perforomist/fomoterol for her. Respiratory therapy did a lot of leg work. Called [facility]. The budesonide is within her ability to pay for. However the formoterol is not. Is still $131 a month. Plan: Resume cardiopulmonary rehab when open. I ordered that today. They say they are open at the end of this month and will contact her. 4 doses of IV steroids and then test to taper, she has had 3 so far Inhaled via nebulizer steroids and long-acting bronchodilator. Resume 3 times a week azithromycin at discharge. I am prescribing budesonide inhalation for discharge to be used twice a day via nebulizer due to her end stage COPD with current exacerbation (2) Acute on chronic respiratory failure with hypoxia and hypercapnia Conclusion/Plan: I am presuming she has chronic hypoxia and hypercapnia on the basis of her anatomy and disease status. I am not going to be getting blood gases. Treatment will consist of the above. Advanced care planning conversation held with patient. Please see dictation under separate note. (3) Hypertension Conclusion/Plan: Resume amlodipine and metoprolol 25 twice daily. For last 2 checks she was 110-131 systolic. Qualifiers: Hypertension type: essential hypertension Qualified Code(s): I10 - Essentia l (primary) hypertension (4) Edema Conclusion/Plan: In a patient has orthopnea, dyspnea on exertion. The most obvious source would be her lung disease. Her last echocardiogram done over a year ago showed no pulmonary hypertension or right-sided heart failure. However, the edema is worsening, and she does have an murmur on exam. Repeat ECHO shows: Plan: Qualifiers: Edema type: localized Qualified Code(s): R60.0 - Localized edema (5) Hyponatremia Conclusion/Plan: Seen in every admission so far. Not on diuretics. Not on serotonin reuptake inhibitors. Most likely due to hypovolemia
[2020-04-22] MEDS: ENOXAPARIN 40 MG/0.4 ML SYRINGE SUBQ SCH (08:20)
[2020-04-22] MEDS: METOPROLOL TARTRATE 25 MG TABLET PO SCH ×2 (08:20→22:00)
[2020-04-22] MEDS: guaiFENesin 600 MG TABLET PO SCH ×2 (08:20→21:46)
[2020-04-22] MEDS: SODIUM CHLORIDE FLUSH 0.9% 10 ML SYRINGE IVP SCH ×2 (08:21→18:36)
[2020-04-22] MEDS: amLODIPine 5 MG TABLET PO SCH (08:21)
[2020-04-22] MEDS: oxyCODONE 5 MG TABLET PO PRN ×2 (09:06→21:46)
[2020-04-22] MEDS: BENZOCAINE/MENTHOL LOZENGE MM PRN ×2 (09:06→12:50)
--- NOTE | 2020-04-22 11:03 | PHARMACY PROGRESS NOTE ---
- Best Possible Medication History Admit Date and Time: 04/21/20 1625 Processed by: Pharmacy Medication History completed: Yes Patient Interview: Completed Secondary Source(s): Pharmacy records (PATIENT INTERVIEWED, PATIENT CONFIRMS HOME MEDICATIONS. PATIENT CANNOT AFFORD INHALERS, ONLY USING NEBULIZERS AT THIS TIME ), Insurance records As the person ultimately responsible for medication therapy, providers are able to order a medication from an existing home medication list in [facility] via the "Reconcile Routine" prior to Confirmation of that medication by administrative support coordinator. Such practice is discouraged except when the physician, in their clinical judgment, deems that a medical need exists for a medication without regard to previous use.
[2020-04-22] MEDS: MULTIVITAMIN W/MINERALS TABLET PO SCH (14:42)
[2020-04-22] MEDS: levoFLOXacin 500 MG/100 ML 500 MG/100 ML BAG IV SCH (20:10)
[2020-04-23] MEDS: BENZOCAINE/MENTHOL LOZENGE MM PRN ×3 (01:30→09:28)
[2020-04-23] MEDS: SODIUM CHLORIDE FLUSH 0.9% 10 ML SYRINGE IVP SCH ×4 (01:31→23:45)
[2020-04-23] MEDS: guaiFENesin/DEXTROMETHORPHAN 10 ML UDC PO PRN ×4 (04:29→23:44)
[2020-04-23] MEDS: ALBUTEROL NEB 2.5 MG/3 ML INH PRN (04:36)
[2020-04-23] MEDS: PANTOPRAZOLE 40 MG TABLET PO SCH (07:03)
[2020-04-23] MEDS: IPRATROPIUM/ALBUTEROL 3 ML NEB INH SCH ×4 (07:15→19:48)
[2020-04-23] MEDS: FORMOTEROL FUMARATE NEB 20 MCG/2 ML INH SCH ×2 (07:16→19:48)
[2020-04-23] MEDS: BUDESONIDE 0.5 MG/2 ML NEB INH SCH ×2 (07:16→19:48)
[2020-04-23] MEDS: guaiFENesin 600 MG TABLET PO SCH ×2 (09:24→20:19)
[2020-04-23] MEDS: ACETAMINOPHEN 325 MG TABLET PO PRN (09:24)
[2020-04-23] MEDS: MULTIVITAMIN W/MINERALS TABLET PO SCH (09:24)
[2020-04-23] MEDS: predniSONE 20 MG TABLET PO SCH (09:25)
[2020-04-23] MEDS: amLODIPine 5 MG TABLET PO SCH (09:28)
[2020-04-23] MEDS: ENOXAPARIN 40 MG/0.4 ML SYRINGE SUBQ SCH (09:28)
[2020-04-23] MEDS: LACTOBACILLUS RHAMNOSUS GG CAPSULE PO SCH (09:28)
[2020-04-23] MEDS: METOPROLOL TARTRATE 25 MG TABLET PO SCH ×2 (09:30→20:19)
[2020-04-23] MEDS: oxyCODONE 5 MG TABLET PO PRN (10:29)
--- NOTE | 2020-04-23 11:03 | PROVIDER PROGRESS NOTE ---
Subjective - Prog Note Date Prog Note Date: 04/23/20 Prog Note Time: 11:01 - Subjective Pt reports feeling: Worse Subjective: Her last steroid dose was around 10:00 last night. Starting around 3 AM, she has been having increased coughing, increased shortness of breath. This morning she is having coughing spasms that are taking her breath away. That in turn causes such severe back spasms of the muscle contractures around her rib cage and thoracic and lumbar spine. She does not want opiates because she says they just knock her out. I have left a message with her pulmonology office to make sure that they follow- up with her. I have also left a message with her primary care provider, Marilou Corral, letting her know that we are trying to find access for her meds, and if they could please refer her to palliative care. Current Medications - Current Medications Current Medications: Active Medications Acetaminophen (Tylenol) 650 mg PO Q4HR PRN PRN Reason: Pain 1 to 4 Last Admin: 04/23/20 09:24 Dose: 650 mg Documented by: Albuterol () 2.5 mg INH RTQ4H PRN PRN Reason: Wheezing Last Admin: 04/23/20 04:36 Dose: 2.5 mg Documented by: Albuterol/Ipratropium (Duoneb) 3 ml INH RTQID JOAQUIN Last Admin: 04/23/20 07:15 Dose: 3 ml Documented by: Amlodipine Besylate (Norvasc) 5 mg PO DAILY [facility] Last Admin: 04/23/20 09:28 Dose: 5 mg Documented by: Budesonide (Pulmicort) 0.5 mg INH RTBID JOAQUIN Last Admin: 04/23/20 07:16 Dose: 0.5 mg Documented by: Enoxaparin Sodium (Lovenox) 40 mg SUBQ DAILY [facility] Last Admin: 04/23/20 09:28 Dose: 40 mg Documented by: Formoterol Fumarate (Perforomist) 20 mcg INH RTBID [facility]IN Last Admin: 04/23/20 07:16 Dose: 20 mcg Documented by: Guaifenesin (Mucinex) 600 mg PO BID [facility] Last Admin: 04/23/20 09:24 Dose: 600 mg Documented by: Guaifenesin (Robitussin Dm) 10 ml PO Q6HR PRN PRN Reason: Cough Last Admin: 04/23/20 10:33 Dose: 10 ml Documented by: Levofloxacin (Levaquin 500 Mg/100 Ml) 500 mg in 100 mls @ 100 mls/hr IV Q24H [facility] Last Infusion: 04/22/20 21:10 Dose: Infused Documented by: Lactobacillus Rhamnosus (Culturelle) 1 cap PO DAILY [facility] Last Admin: 04/23/20 09:28 Dose: 1 cap Documented by: Methocarbamol (Robaxin) 500 mg PO Q6HR PRN PRN Reason: Spasms Metoprolol Tartrate (Lopressor) 25 mg PO BID [facility] Last Admin: 04/23/20 09:30 Dose: 25 mg Documented by: Multivitamins/Minerals (Theragran M) 1 tab PO DAILYWM [facility] Last Admin: 04/23/20 09:24 Dose: 1 tab Documented by: Ondansetron HCl (Zofran Odt) 4 mg TL Q6HR PRN PRN Reason: Nausea / Vomiting Ondansetron HCl (Zofran Inj) 4 mg IVP Q6HR PRN PRN Reason: Nausea / Vomiting Oxycodone HCl (Roxicodone) 5 mg PO Q4HR PRN PRN Reason: Pain 5 to 7 Last Admin: 04/23/20 10:29 Dose: 5 mg Documented by: Pantoprazole Sodium (Protonix) 40 mg PO QDAC [facility] Last Admin: 04/23/20 07:03 Dose: 40 mg Documented by: Prednisone (Deltasone) 30 mg PO DAILYWM [facility] Last Admin: 04/23/20 09:25 Dose: 30 mg Documented by: Sodium Chloride (Normal Saline Flush 0.9%) 10 ml IVP PRN PRN PRN Reason: NEEDED PER PROVIDER ORDERS Last Admin: 04/22/20 12:51 Dose: 10 ml Documented by: Sodium Chloride (Normal Saline Flush 0.9%) 10 ml IVP 0100,0900,1700 [facility] Last Admin: 04/23/20 09:29 Dose: 10 ml Documented by: Throat Lozenges (Cepacol) 1 lozenge MM Q2HR PRN PRN Reason: Throat pain Last Admin: 04/23/20 09:28 Dose: 1 lozenge Documented by: Acetaminophen [Pain Relief] 1,000 mg PO BID PRN 06/04/13 Aspirin EC [Ecotrin] 81 mg PO DAILY 06/04/13 Amlodipine Besylate [Norvasc] 10 mg PO DAILY 07/24/19 Metoprolol Tartrate [Lopressor] 25 mg PO BID 07/24/19 Guaifenesin [Mucinex] 600 mg PO BID 03/09/20 Objective - Vital Signs/Intake & Output Reviewed Vital Signs: Yes Vital Signs: Vital Signs x48h Temp Pulse Pulse Resp BP BP Pulse Ox 04/23/20 09:30 121/62 04/23/20 08:00 36.6 C 74 21 121/62 95 04/23/20 07:15 72 20 04/23/20 04:35 76 20 Intake & Output: Intake & Output 04/20/20 04/21/20 04/22/20 04/23/20 23:59 23:59 23:59 23:59 Intake Total 820 2770 560 Output Total 250 1900 Balance 570 870 560 - Objective General Appearance: positive: Moderate distress, Other (Red face, coughing spasm, involuntary tears, cannot catch her breath to speak to me.) Eyes Bilateral: positive: PERRL, EOMI ENT: positive: Pharynx nml Neck: positive: No JVD. negative: Stiff neck Respiratory: positive: Wheezes, Other (In between coughing spasms able to have 1 or 2 sentences. Comfortable until the next wave of coughing starts. No use of accessory muscles. Wheezing is much worse this morning, bilateral and diffuse.) Cardiovascular: positive: Regular rate & rhythm. negative: Gallop/S4, Friction rub Abdomen: positive: Non-tender, No organomegaly, Nml bowel sounds, No distention Skin: positive: Warm, Dry Extremities: positive: Non-tender, No pedal edema Neurologic/Psychiatric: positive: Oriented x3, CN's nml (2-12), Motor nml, Sensation nml - Lab Results Fish Bones: 04/21/20 15:22 04/21/20 15:22 ABX Reporting Has patient been on IV antibiotics over the past 48 hours?: Yes Assessment/Plan - Problem List (1) Acute on chronic respiratory failure with hypoxia and hypercapnia Impression: This unfortunate patient has fairly severe disease that I would consider end-stage. I shared that observation with her and her friend on admisson. She is not on maximal medical therapy because of cost concerns. While she was in cardiopulmonary rehab, that was temporarily stopped because of COVID-19 restrictions. on 04/22, I called Dr. Mcgraw @[phone] to make sure she stays on his radar. He was off this week since he did ICU last week. So I left message for him to call me or to consider finding samples of the perforomist/fomoterol for her. Respiratory therapy did a lot of leg work. Called [facility]. The budesonide is within her ability to pay for. However the formoterol is not. Is still $131 a month. I am prescribing budesonide inhalation for discharge to be used twice a day via nebulizer due to her end stage COPD with current exacerbation Empiric antibiotic therapy With Rocephin and azithromycin, s/p 2 days and then switched to levaquin yesterday, so Day #2 of that . Plan: Resume cardiopulmonary rehab when open. I ordered that 04/22 They say they are o pen at the end of this month and will contact her. 4 doses of IV steroids and she is worse this am off IV. Did get po dose of steroids this am. If continues to be bad this am, will resume IV Inhaled via nebulizer steroids and long-acting bronchodilator. Resume 3 times a week azithromycin at discharge. Robaxin for the back spasm due to cough (2) Acute on chronic respiratory failure with hypoxia and hypercapnia Conclusion/Plan: I am presuming she has chronic hypoxia and hypercapnia on the basis of her anatomy and disease status. I am not going to be getting blood gases. Treatment will consist of the above. Advanced care planning conversation held with patient. Please see dictation under separate note. (3) Hypertension Conclusion/Plan: Resume amlodipine and metoprolol 25 twice daily. For last 2 checks she was 110-121 systolic this am. Qualifiers: Hypertension type: essential hypertension Qualified Code(s): I10 - Essential (primary) hypertension (4) Edema resolved. Conclusion/Plan: In a patient has orthopnea, dyspnea on exertion. The most obvious source would be her lung disease. Her last echocardiogram done over a year ago showed no pulmonary hypertension or right-sided heart failure. However, the edema is worsening, and she does have an murmur on exam. Repeat ECHO shows: not done yet. Plan: review ECHO when available Qualifiers: Edema type: localized Qualified Code(s): R60.0 - Localized edema (5) Hyponatremia Conclusion/Plan: Seen in every admission so far. Not on diuretics. Not on serotonin reuptake inhibitors. Most likely due to hypovolemia
[2020-04-23] MEDS: levoFLOXacin 500 MG/100 ML 500 MG/100 ML BAG IV SCH (20:19)
[2020-04-23] MEDS: methocarbamoL 500 MG TABLET PO PRN (20:19)
[2020-04-23] MEDS: SODIUM CHLORIDE FLUSH 0.9% 10 ML SYRINGE IVP PRN (20:24)
[2020-04-24] MEDS: oxyCODONE 5 MG TABLET PO PRN (00:26)
[2020-04-24] MEDS: methocarbamoL 500 MG TABLET PO PRN ×3 (06:35→22:11)
[2020-04-24] MEDS: PANTOPRAZOLE 40 MG TABLET PO SCH (06:36)
[2020-04-24] MEDS: FORMOTEROL FUMARATE NEB 20 MCG/2 ML INH SCH ×2 (07:33→19:48)
[2020-04-24] MEDS: BUDESONIDE 0.5 MG/2 ML NEB INH SCH ×2 (07:33→19:48)
[2020-04-24] MEDS: IPRATROPIUM/ALBUTEROL 3 ML NEB INH SCH ×4 (07:33→19:48)
[2020-04-24] MEDS: predniSONE 20 MG TABLET PO SCH (08:27)
[2020-04-24] MEDS: MULTIVITAMIN W/MINERALS TABLET PO SCH (08:27)
[2020-04-24] MEDS: guaiFENesin 600 MG TABLET PO SCH ×2 (08:27→20:56)
[2020-04-24] MEDS: ENOXAPARIN 40 MG/0.4 ML SYRINGE SUBQ SCH (08:28)
[2020-04-24] MEDS: METOPROLOL TARTRATE 25 MG TABLET PO SCH ×2 (08:28→20:56)
[2020-04-24] MEDS: LACTOBACILLUS RHAMNOSUS GG CAPSULE PO SCH (08:28)
[2020-04-24] MEDS: amLODIPine 5 MG TABLET PO SCH (08:28)
[2020-04-24] MEDS: SODIUM CHLORIDE FLUSH 0.9% 10 ML SYRINGE IVP SCH ×2 (08:29→16:44)
--- NOTE | 2020-04-24 11:00 | PROVIDER PROGRESS NOTE ---
Subjective - Prog Note Date Prog Note Date: 04/24/20 Prog Note Time: 12:17 - Subjective Pt reports feeling: Improved Subjective: Yesterday, the coughing spasms were frequent, and caused her to be short of breath significantly. As a night's progress, she said that she had a good night sleep. This morning the cough is much less. Still present, but less. Yesterday, the cough is also inducing an intense back spasm. The Robaxin helped tremendously. Current Medications - Current Medications Current Medications: Active Medications Acetaminophen (Tylenol) 650 mg PO Q4HR PRN PRN Reason: Pain 1 to 4 Last Admin: 04/23/20 09:24 Dose: 650 mg Documented by: Albuterol () 2.5 mg INH RTQ4H PRN PRN Reason: Wheezing Last Admin: 04/23/20 04:36 Dose: 2.5 mg Documented by: Albuterol/Ipratropium (Duoneb) 3 ml INH RTQID JOAQUIN Last Admin: 04/24/20 07:33 Dose: 3 ml Documented by: Amlodipine Besylate (Norvasc) 5 mg PO DAILY [facility] Last Admin: 04/24/20 08:28 Dose: 5 mg Documented by: Budesonide (Pulmicort) 0.5 mg INH RTBID [facility] Last Admin: 04/24/20 07:33 Dose: 0.5 mg Documented by: Enoxaparin Sodium (Lovenox) 40 mg SUBQ DAILY [facility] Last Admin: 04/24/20 08:28 Dose: 40 mg Documented by: Formoterol Fumarate (Perforomist) 20 mcg INH RTBID JOAQUIN Last Admin: 04/24/20 07:33 Dose: 20 mcg Documented by: Guaifenesin (Mucinex) 600 mg PO BID [facility] Last Admin: 04/24/20 08:27 Dose: 600 mg Documented by: Guaifenesin (Robitussin Dm) 10 ml PO Q6HR PRN PRN Reason: Cough Last Admin: 04/23/20 23:44 Dose: 10 ml Documented by: Lactobacillus Rhamnosus (Culturelle) 1 cap PO DAILY [facility] Last Admin: 04/24/20 08:28 Dose: 1 cap Documented by: Levofloxacin (Levaquin) 500 mg PO DAILY [facility] Methocarbamol (Robaxin) 500 mg PO Q6HR PRN PRN Reason: Spasms Last Admin: 04/24/20 06:35 Dose: 500 mg Documented by: Metoprolol Tartrate (Lopressor) 25 mg PO BID [facility] Last Admin: 04/24/20 08:28 Dose: 25 mg Documented by: Multivitamins/Minerals (Theragran M) 1 tab PO DAILYWM [facility] Last Admin: 04/24/20 08:27 Dose: 1 tab Documented by: Ondansetron HCl (Zofran Odt) 4 mg TL Q6HR PRN PRN Reason: Nausea / Vomiting Ondansetron HCl (Zofran Inj) 4 mg IVP Q6HR PRN PRN Reason: Nausea / Vomiting Oxycodone HCl (Roxicodone) 5 mg PO Q4HR PRN PRN Reason: Pain 5 to 7 Last Admin: 04/24/20 00:26 Dose: 5 mg Documented by: Pantoprazole Sodium (Protonix) 40 mg PO QDAC [facility] Last Admin: 04/24/20 06:36 Dose: 40 mg Documented by: Petrolatum (Vaseline) 1 applic TOP PRN PRN PRN Reason: Dry Lips Prednisone (Deltasone) 30 mg PO DAILYWM [facility] Last Admin: 04/24/20 08:27 Dose: 30 mg Documented by: Sodium Chloride (Normal Saline Flush 0.9%) 10 ml IVP PRN PRN PRN Reason: NEEDED PER PROVIDER ORDERS Last Admin: 04/23/20 20:24 Dose: 10 ml Documented by: Sodium Chloride (Normal Saline Flush 0.9%) 10 ml IVP 0100,0900,1700 [facility] Last Admin: 04/24/20 08:29 Dose: 10 ml Documented by: Throat Lozenges (Cepacol) 1 lozenge MM Q2HR PRN PRN Reason: Throat pain Last Admin: 04/23/20 09:28 Dose: 1 lozenge Documented by: Acetaminophen [Pain Relief] 1,000 mg PO BID PRN 06/04/13 Aspirin EC [Ecotrin] 81 mg PO DAILY 06/04/13 Amlodipine Besylate [Norvasc] 10 mg PO DAILY 07/24/19 Metoprolol Tartrate [Lopressor] 25 mg PO BID 07/24/19 Guaifenesin [Mucinex] 600 mg PO BID 03/09/20 Objective - Vital Signs/Intake & Output Reviewed Vital Signs: Yes Vital Signs: Vital Signs x48h Temp Pulse Pulse Resp BP BP Pulse Ox 04/24/20 10:38 36.8 C 77 24 93 04/24/20 08:28 121/71 04/24/20 08:00 36.8 C 77 24 121/71 93 04/24/20 07:37 72 20 Intake & Output: Intake & Output 04/21/20 04/22/20 04/23/20 04/24/20 23:59 23:59 23:59 23:59 Intake Total 820 2770 1480 236 Output Total 250 1900 Balance 543 955 0311 236 - Objective General Appearance: positive: Alert, Mild distress, Other (Thin middle-aged white female who looks older than stated age. Almost cachectic. Much more comfortable today and actually able to speak in complete sentences without starting a coughing spasm.) Eyes Bilateral: positive: PERRL ENT: positive: Pharynx nml Neck: positive: No JVD. negative: Stiff neck Respiratory: positive: Chest non-tender, Other (Cough still present. Much less frequent and strong. Today's air sounds are good, air movement sounds much less tight. No outright wheezing just prolonged and exhalation in tubular breath sounds). negative: Wheezes, Rales, Rhonchi Cardiovascular: positive: Regular rate & rhythm. negative: Gallop/S4, Friction rub Skin: positive: Warm, Dry, Pallor Extremities: positive: Non-tender, Full ROM, No pedal edema - Lab Results Fish Bones: 04/24/20 11:08 04/24/20 11:08 ABX Reporting Has patient been on IV antibiotics over the past 48 hours?: Yes Assessment/Plan - Problem List (1) Acute on chronic respiratory failure with hypoxia and hypercapnia Impression: This unfortunate patient has fairly severe disease that I would consider end- stage. I shared that observation with her and her friend on admisson. She is not on maximal medical therapy because of cost concerns. While she was in cardiopulmonary rehab, that was temporarily stopped because of COVID-19 restrictions. on 04/22, I called Dr. Mcgraw @[phone] to make sure she stays on his radar. He was off this week since he did ICU last week. So I left message for him to call me or to consider finding samples of the perforomist/fomoterol for her. Respiratory therapy did a lot of leg work. Called Daniel. The budesonide is within her ability to pay for. However the formoterol is not. Is still $131 a month. I am prescribing budesonide inhalation for discharge to be used twice a day via nebulizer due to her end stage COPD with current exacerbation Empiric antibiotic therapy With Rocephin and azithromycin, s/p 2 days and then switched to levaquin 04/22, so Day #3 of that . Plan: Resume cardiopulmonary rehab when open. I ordered that 04/22 They say they are open at the end of this month and will contact her. 4 doses of IV steroids and she is worse 04/23 off IV. Did get po dose of steroids. Since she stayed stable, no return to IV and will start to wean po since she is on budesonide inhalation. Inhaled via nebulizer steroids and long-acting bronchodilator. Resume 3 times a week azithromycin at discharge. Robaxin for the back spasm due to cough is working. I will send her home with a prescription at discharge. Switch IV Levaquin to p.o. Levaquin. Today make 6 days of antibiotics. Tomorrow will be her last dose. If she is doing well in am, will send home. (2) Acute on chronic respiratory failure with hypoxia and hypercapnia Conclusion/Plan: I am presuming she has chronic hypoxia and hypercapnia on the basis of her anatomy and disease status. I am not going to be getting blood gases. Treatment will consist of the above. Advanced care planning conversation held with patient. Please see dictation under separate note. (3) Hypertension Conclusion/Plan: Resume amlodipine and metoprolol 25 twice daily. For last 2 checks she was 120-121 systolic this am. Qualifiers: Hypertension type: essential hypertension Qualified Code(s): I10 - Essential (primary) hypertension (4) Edema resolved. Conclusion/Plan: In a patient has orthopnea, dyspnea on exertion. The most obvious source would be her lung disease. Her last echocardiogram done over a year ago showed no pulmonary hypertension or right-sided heart failure. However, the edema is worsening, and she does have an murmur on exam. Repeat ECHO shows: Preliminary echo report, final not read. Left ventricular wall thickness is normal. Ejection fraction 70 to 75%. Normal diastology.. No regional wall motion abnormalities. Right ventricle normal. Mild to moderately abnormal right heart pressures with RVSP at rest 49 mmHg. Mild tricuspid regurgitation. Plan: Nothing at this time. Edema seems to be just from mild fluid retention, no severe pulmonary hypertension. Specifically I do not think she needs to be treated with diuretics. Qualifiers: Edema type: localized Qualified Code(s): R60.0 - Localized edema (5) Hyponatremia Conclusion/Plan: Seen in every admission so far. Not on diuretics. Not on serotonin reuptake inhibitors. Most likely due to hypovolemia
[2020-04-24 11:18] LABS: BASOPHILS % (AUTO) 0.2 %; EOSINOPHILS # (AUTO) 0.1 10^3/uL (0.0-0.7); EOSINOPHILS % (AUTO) 0.7 %; HGB - HEMOGLOBIN 13.9 g/dL (12.0-16.0); LYMPHOCYTES # (AUTO) 0.8 10^3/uL (1.5-3.5); LYMPHOCYTES % (AUTO) 8.2 %; MEAN CORPUSCULAR HEMOGLOBIN 35.5 pg (27.0-31.0); MEAN CORPUSCULAR HGB CONC 35.7 g/dL (32.0-36.0); MEAN CORPUSCULAR VOLUME 99.2 fL (81.0-99.0); MEAN PLATELET VOLUME 7.8 fL (7.9-10.8); MONOCYTES # (AUTO) 0.7 10^3/uL (0.0-1.0); MONOCYTES % (AUTO) 7.5 %; NEUTROPHILS # (AUTO) 8.2 10^3/uL (1.5-6.6); NEUTROPHILS % (AUTO) 82.4 %; PLT - PLATELET COUNT 173 10^3/uL (130-450); RED BLOOD COUNT 3.92 10^6/uL (4.20-5.40); RED CELL DISTRIBUTION WIDTH 12.9 % (12.0-15.0); WHITE BLOOD COUNT 9.9 x10^3/uL (4.8-10.8)
[2020-04-24 11:25] LABS: CALCIUM 9.1 mg/dL (8.5-10.3); CREATININE 0.8 mg/dL (0.4-1.0)
[2020-04-24] MEDS ORDERED: PETROLATUM WHITE 5 GM PACKET TOP PRN (11:44)
[2020-04-24] MEDS: levoFLOXacin 250 MG TABLET PO SCH (12:28)
[2020-04-24] MEDS: SODIUM CHLORIDE 0.65% NASAL SPRAY NAS PRN (16:43)
[2020-04-24] MEDS ORDERED: POTASSIUM CHLORIDE 20 MEQ/15 ML UDC PO SCH (17:00)
[2020-04-24] MEDS: guaiFENesin/DEXTROMETHORPHAN 10 ML UDC PO PRN (22:13)
[2020-04-25] MEDS: SODIUM CHLORIDE FLUSH 0.9% 10 ML SYRINGE IVP SCH ×2 (00:34→09:04)
[2020-04-25] MEDS: PANTOPRAZOLE 40 MG TABLET PO SCH (06:20)
[2020-04-25] MEDS ORDERED: POTASSIUM CHLORIDE 20 MEQ TABLET PO ONE (07:00)
[2020-04-25] MEDS: IPRATROPIUM/ALBUTEROL 3 ML NEB INH SCH (08:33)
[2020-04-25] MEDS: BUDESONIDE 0.5 MG/2 ML NEB INH SCH (08:34)
[2020-04-25] MEDS: FORMOTEROL FUMARATE NEB 20 MCG/2 ML INH SCH (08:34)
[2020-04-25 08:35] VITALS: BP 128/68
[2020-04-25] MEDS: guaiFENesin 600 MG TABLET PO SCH (09:01)
[2020-04-25] MEDS: MULTIVITAMIN W/MINERALS TABLET PO SCH (09:01)
[2020-04-25] MEDS: levoFLOXacin 250 MG TABLET PO SCH (09:01)
[2020-04-25] MEDS: LACTOBACILLUS RHAMNOSUS GG CAPSULE PO SCH (09:01)
[2020-04-25] MEDS: predniSONE 20 MG TABLET PO SCH (09:01)
[2020-04-25] MEDS: METOPROLOL TARTRATE 25 MG TABLET PO SCH (09:02)
[2020-04-25] MEDS: ENOXAPARIN 40 MG/0.4 ML SYRINGE SUBQ SCH (09:03)
[2020-04-25] MEDS: amLODIPine 5 MG TABLET PO SCH (09:03)
--- NOTE | 2020-04-25 09:05 | Discharge Plan ---
Discharge Plan Problem Reviewed?: Yes Disposition: Home, Self Care Condition: Stable Prescriptions: methocarbamoL [Robaxin] 500 mg PO Q6HR PRN #30 tablet PRN Reason: Spasms Azithromycin 250 mg PO UD #12 tablet Prednisone 5 mg PO UD #15 tablet Diet: Regular Activity Restrictions: Activity as Tolerated Shower Restrictions: No Driving Restrictions: No Instruction Topics: Methocarbamol tablets Health Concerns: You presented to our emergency room with severe difficulty breathing. You are a patient who has known end-stage emphysema, is on oxygen. In spite of taking your medicines, you were getting worse and worse. In the emergency room we found you to have severe emphysema exacerbation. Your chest x-ray was negative for pneumonia. Even though your knitter wire mesh has prescribed several long- acting bronchodilators and inhaled steroids for you, you have been unable to fill those prescriptions because of cost. Those medicines are way too expensive for you. Plan of Treatment: 1. You were placed on intravenous steroids the first day. Then transition to steroids that were pills taken by mouth. You are being sent home on a tapering steroid dose. You will take 5 pills tomorrow, then 4 pills, then 3 pills, then 2 pills then 1. 2. Long acting inhaled steroid budesonide has been called into [facility]. DuoNeb 4 times a day, a fixed schedule, [facility]. You are allowed to take albuterol as needed as many times a day as you need. That was also called into [facility]. 3. Continue oxygen at usual dose at home which is 3 L/min. 4. Please see your primary care provider in the next 1 to 2 weeks. I also stressed that you need to make contact with your knitter wire mesh and see him as well in the next 1 to 2 weeks. 5. [facility] will be calling you soon to resume your rehab classes. 6. Azithromycin, and antibiotic, will be prescribed for 3 times a week usage. With emphysema, azithromycin on a maintenance basis has been shown to reduce symptomatology, and reduce the amount of times people bounce back to the hospital. Care Goals: To reduce your shortness of breath and cough, improve your overall endurance to stay independent as long as possible. Assessment: Patient understands goals, and promises to follow through on plan Follow-Up Care: [facility] - Pulmonary No Smoking: If you smoke, Please STOP! Call for help. Follow-up with: Tim Castro DO [Primary Care Provider] -
[2020-04-25] MEDS: SODIUM CHLORIDE 0.65% NASAL SPRAY NAS PRN (09:15)
--- NOTE | 2020-04-25 13:27 | DISCHARGE SUMMARY ---
Discharge Summary Admit Date: 04/21/20 Discharge Date: 04/25/20 Discharging Provider: Veda Giles MD Primary Care Provider: Tim Castro MD Code Status: Attempt Resuscitation Condition at Discharge: Stable Discharge Disposition: 01 Home, Self Care - DIAGNOSES Discharge Diagnoses with Status of Each Condition: 1. Acute on chronic respiratory failure with hypoxia and hypercapnia 2. COPD exacerbation 3. Hypertension 4. Bilateral leg edema, resolved 5. Chronic hyponatremia 6. Hypokalemia - HPI History of Present Illness: This unfortunate female is an ex-smoker who smoked about 1 pack/day for 50 years and ostensibly quit with her first admission for COPD exacerbation in July 2019. She has COPD and is on short acting bronchodilators. She is also on home oxygen of 3 L/min when she use to be on 2L in March. She is supposed to be on long-acting bronchodilators as well as short acting bronchodilators. However, she cannot afford the long-acting bronchodilator forms of Advair, Symbicort, Spiriva. She is in a severely limited income and she just cannot afford them. She was admitted July 2019, November 2019 (was discharged on Spiriva/Advair which she is not taking), and March 2020. He was last seen by Rafa Somers, pulmonology @ [facility] in [place] November 2018 for end stage lung disease. He was following her for chronic dyspnea. She was to be on a LAMA and LABA combination with intermittent steroids. Pulmonary function studies done with that visit in November showed an FEV1 of 1.1 L which was 47% of predicted and a DLCO of 9.2 which was 44% of predicted. At that time he added ICS, and azithromycin 3 times a week with low-dose prednisone daily for the next 2 months. He felt that she should be in pulmonary rehab. He mentions that he had done a bronchoscopy on her in 08/2018 for left lower lobe atelectasis which she called a "collapsed lung" seen on CT done for diverticulitis. His bronchoscopy did not show endobronchial lesions. Cultures were negative. The atelectasis was presumed to be from severe mucus plugging. Because she had elements of orthopnea, he ordered an echocardiogram. She has not seen him since November 2018. She has not been asked to do a follow-up with him. She is willing to do so. She did do cardiopulmonary rehab this year. Unfortunately, the COVID crisis hit, classes were canceled and she has been told that they may resume sometime in early May but she is not sure. She identifies her primary care provider as Marilou Castro. She has not had any recent travel. There is no one else sick at home. She lives alone. She started smoking again when her dog earlier this month but only smoked for 3 days. Over the last several days she has been increasingly short of breath, wheezing, and ambulation is become limited to 2 or 3 steps. She is always dyspneic on exertion and walking more than 15 feet is difficult. She lives in a 35 foot trailer. Now she is down to 2 or 3 steps. She denies fever, change in phlegm production, myalgias, change in bowel habits.Yesterday and today her dyspnea was so severe that she was crawling on the floor. She felt as if she were going to .She has been developing some leg edema and that was worrying her as well. Her chest was so tight that it hurt. But there was no radiation to her jaw. No diaphoresis. No palpitations. She was seen by Dr. Rosario in the emergency room and was alert and oriented. Temperature was 36.7. Heart rate 95. Respirations 30. Blood pressure 150/74 and she saturating 92% on 3 L. She was tachypneic, bilateral wheezing, diminished breath sounds. White cell count was 7.2. Chest x-ray had emphysematous changes but no infiltrate. After nebulizers and steroids her respiratory rate is down to 16. O2 sat is 95%. She is now admitted inpatient. We have admitted her inpatient is post observation because all of her stays have been greater than 2 midnights. Past Medical History Cardiovascular: reports: Hypertension Respiratory: reports: COPD, Pneumonia, Shortness of breath (Due to emphysema and a reduced diffusion capacity. Echocardiogram November 2018 with normal left ventricular size. Ejection fraction 65 to 70%. Right ventricle normal size and function. Both atria normal. Mild aortic sclerosis. RVSP at rest 31 mmHg.) Neuro: reports: None Endocrine/Autoimmune: reports: None GI: reports: GERD, Diverticulitis (with ER visit 2018, treated as outpatient) SCANNING COORDINATOR: reports: Other (. A few months after the of her son, she was told that she had precancerous uterine lesion and she had a hysterectomy. ) : reports: None HEENT: reports: Chronic vision loss (Wears prescription glasses) Psych: reports: None Musculoskeletal: reports: Osteoarthritis Derm: reports: Other (severe stress induced neurodermatitis 2010. Seen by [facility] derm. Path on bx showed spongiotic dermatitis correlating with atopic dermatitis. Rsolved wtih clobetasol, desitin. Recurred 11/2013. ) MRSA Hx?: No - Past Surgical History General: reports: Appendectomy, Colonoscopy Ortho: reports: Hip replacement (right hip 06/2013), Arthroscopic surgery, Other (osteomyelitis back surgery) /SCANNING COORDINATOR: reports: Hysterectomy, Oophrectomy, Other (lumpectomies in past with [facility] pathology ) HEENT: reports: Tonsil/Adenoidectomy Derm: reports: Skin cancer surgery ([facility] for squamous cell ca both legs 08/2016) - CONSULTS | PROCEDURES Procedures: 1. Chest x-ray with no acute cardiopulmonary abnormality. Emphysematous changes with increased lung volumes. 2. Preliminary echocardiogram or final report must be reviewed. Echo compared to November 2018 report. Overall left ventricular systolic function normal with ejection fraction 70 to 75%. Normal diastolic G. Atrial volumes are normal. Mild aortic valve sclerosis without stenosis. Mild tricuspid regurgitation. Mild to moderately abnormal right heart pressures with RVSP at rest 49 mmHg. Compared to the prior echo, the pulmonary arterial systolic pressure has increased. - HOSPITAL COURSE Hospital Course: The patient was started on empiric IV antibiotic therapy, IV steroids. Steroids were tapered, and within 12 hours of stopping IV steroids, increased wheezing and coughing returned. She was continued on oral steroids and was at 30 mg a day until discharge. Antibiotic therapy was initially IV, then changed to respiratory quinolone IV, then p.o. quinolone to finish here. She does not need to be on antibiotics at home. However she is being discharged on tapering doses of prednisone to be 30 mg, 25 mg, 20, 15, 10, then 5. In trying to understand why she has such severe COPD exacerbation, it became clear that the patient is unable to afford long-acting bronchodilators or long- acting inhaled steroids. Although her bread dumper has prescribed numerous medications including Advair, Qvar, etc., she is not filled any of them because they cost too much. She was last seen by his office in November 2018. Respiratory therapy worked valiantly trying to find access for this woman. We were able to prescribe budesonide inhalation twice a day for next epidural $24 a month for her. However Perforomist or Alonso is in the $130/month and she can afford it. She is still down to 3 L of nasal cannula. She was working with cardiopulmonary rehab before the COVID crisis. We have called the cardiopulmonary rehab office and she will be able to resume with them in the n ext couple of weeks. It took quite a while for bronchospasm to resolve. She also has severe coughing spasms where she loses her breath, starts to gag, vomit, and turn red in the face. When she first presented leg edema was investigated. Congestive heart failure was considered. While she does have elevated pulmonary pressures she is not felt to have cor pulmonale yet. Edema was resolved by the time of discharge. She has chronic hyponatremia on all of her admissions. Sodium is 1 32-1 37. Hypokalemia was treated with potassium supplement. She is discharged in stable condition. With a guarded prognosis overall with the patient was such severe emphysema. Temperature is 37.2. Pulse is 66. Blood pressure 128/68. Respirations 20 and unlabored. She is 93% saturated on 3 L nasal cannula. She is 5 foot 6 inches tall and weighs 54 kg. On general exam she is a slender, cachectic appearing female who looks her stated age. No pursed lips no increased use of accessory muscle and speaking to me or walking to the bathroom. Much improved from admission. Lungs have coarse tubular br eath sounds. Prolonged and expiratory phase of respiration. Good loose air movement. Occasional wheeze. But no increased respiratory effort no use of accessory muscles. PMI is normally placed with a regular rate and rhythm and a systolic murmur. The abdomen is benign. The feet have no edema. Greater than 30 minutes was spent coordinating discharge. Budesonide, DuoNeb, and albuterol have all been called into [facility]. I am asked her to follow-up with her primary care provider in the next 1 to 2 weeks. And also see her bread dumper in the next 1 to [address] Rafa Somers with [facility] pulmonology. - ALLERGIES Allergies/Adverse Reactions: Allergies Allergy/AdvReac Type Severity Reaction Status Date / Time venom-honey bee Allergy Severe Respiratory Verified 04/21/20 14:44 [bee venom (honey bee)] codeine [Codeine] Allergy Rash Verified 04/21/20 14:44 meperidine HCl * Allergy Emesis Verified 04/21/20 14:44 [From Demerol] morphine Allergy Itching Verified 04/21/20 14:44 Penicillins Allergy Rash Verified 04/21/20 14:44 tetracycline [Tetracycline] Allergy Rash Verified 04/21/20 14:44 - MEDICATIONS Home Medications: Ambulatory Orders Medication Instructions Recorded Confirmed Acetaminophen [Pain Relief] 1,000 mg PO BID PRN 06/04/13 04/22/20 Aspirin EC [Ecotrin] 81 mg PO DAILY 06/04/13 04/22/20 Amlodipine Besylate [Norvasc] 10 mg PO DAILY 07/24/19 04/22/20 Metoprolol Tartrate [Lopressor] 25 mg PO BID 07/24/19 04/22/20 Guaifenesin [Mucinex] 600 mg PO BID 03/09/20 04/22/20 Albuterol 2.5 mg INH RTQ4H PRN neb 04/25/20 Azithromycin 250 mg PO UD #12 tablet 04/25/20 Budesonide [Pulmicort] 0.5 mg INH RTBID neb 04/25/20 Ipratropium/Albuterol [Duoneb] 3 ml INH Q4HR #14 neb 04/25/20 04/22/20 Multivitamin W/Minerals [Theragran 1 tab PO DAILYWM tablet 04/25/20 M] Prednisone 5 mg PO UD #15 tablet 04/25/20 methocarbamoL [Robaxin] 500 mg PO Q6HR PRN #30 tablet 04/25/20 - LABS Result Diagrams: 04/24/20 11:08 04/24/20 11:08
== END 2020-04-25 10:30 | disposition home or self-care (01) | DRG 189 ==
LOC: ED 14:39 → MS2 16:25
PROVIDERS: ADMIT Specialist; ATTEND Specialist
DX: J96.21 Acute and chronic respiratory failure with hypoxia (principal); M25.473 Effusion, unspecified ankle; F17.200 Nicotine dependence, unspecified, uncomplicated; E87.1 Hypo-osmolality and hyponatremia; Z79.51 Long term (current) use of inhaled steroids; R64 Cachexia; Z68.1 Body mass index [BMI] 19.9 or less, adult; J43.9 Emphysema, unspecified; J96.22 Acute and chronic respiratory failure with hypercapnia; R60.9 Edema, unspecified; E87.6 Hypokalemia; I10 Essential (primary) hypertension; M62.830 Muscle spasm of back; K21.9 Gastro-esophageal reflux disease without esophagitis; Z66 Do not resuscitate; Z87.891 Personal history of nicotine dependence; Z91.14 Patient's other noncompliance with medication regimen; Z99.81 Dependence on supplemental oxygen
CPT/HCPCS: 36415; 71045; 80048; 80053; 83690; 85025; 93005; 93306; 94640; 96374; 99284; 99285; A9270; J1650; J7512; J7626; 83880; 84484

== ENCOUNTER 2021-04-28 12:24 | Observation (INO) | payer MEDICARE ==
[2021-04-28] MEDS ORDERED: DOXEPIN 10 MG CAPSULE PO STA (12:42)
[2021-04-28] MEDS ORDERED: ASPIRIN CHEW 81 MG TABLET PO STA (12:42)
[2021-04-28] MEDS ORDERED: HYDROmorphone 1 MG/ML CARPUJECT IVP STA (12:42)
[2021-04-28] MEDS ORDERED: NITROGLYCERIN SL 0.4 MG TABLET SL STA (12:42)
--- NOTE | 2021-04-28 12:44 | ED Physician Documentation ---
PD HPI CHEST PAIN - Stated complaint Stated Complaint: CP - History obtained from History obtained from: Patient - Additional information Additional information: 75-year-old woman with history of COPD on 3 L of oxygen, but no heart disease o ther than hypertension presents with sudden onset substernal squeezing chest pain which was nonradiating that started at rest about 45 minutes ago. She is not more short of breath than normal. Pain is severe. She tried walking which did not help the pain. No history of stress testing per her. She had an echocardiogram on her last admission in March of last year showing EF of 70 to 75%, mild aortic sclerosis, mild TR, mild to moderately abnormal right heart pressure with RVSP of 49. Review of Systems Ten Systems: 10 systems reviewed and negative Constitutional: reports: Fatigue Cardiac: reports: Chest pain / pressure. denies: Palpitations Respiratory: denies: Cough PD PAST MEDICAL HISTORY - Past Medical History Cardiovascular: Hypertension Respiratory: COPD, Pneumonia, Shortness of breath (Due to emphysema and a reduced diffusion capacity. Echocardiogram November 2018 with normal left ventricular size. Ejection fraction 65 to 70%. Right ventricle normal size and function. Both atria normal. Mild aortic sclerosis. 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 A few months after the of her son, she was told that she had precancerous uterine lesion and she had a hysterectomy. ) : None HEENT: Chronic vision loss (Wears prescription glasses) Psych: None Musculoskeletal: Osteoarthritis Derm: Other (severe stress induced neurodermatitis 2010. Seen by [facility] derm. Path on bx showed spongiotic dermatitis correlating with atopic dermatitis. Rsolved wtih clobetasol, desitin. Recurred 11/2013. ) - Past Surgical History Past Surgical History: Yes General: Appendectomy, Colonoscopy Ortho: Hip replacement (right hip 06/2013), Arthroscopic surgery, Other (osteomyelitis back surgery) /HAT AND CAP OPENER: Hysterectomy, Oophrectomy, Other (lumpectomies in past with benigh pathology ) HEENT: Tonsil/Adenoidectomy Derm: Skin cancer surgery (MO[facility] for squamous cell ca both legs 08/2016) - Present Medications Home Medications: Ambulatory Orders Medication Instructions Recorded Confirmed Acetaminophen [Pain Relief] 1,000 mg PO BID PRN 06/04/13 04/22/20 Aspirin EC [Ecotrin] 81 mg PO DAILY 06/04/13 04/22/20 Amlodipine Besylate [Norvasc] 10 mg PO DAILY 07/24/19 04/22/20 Metoprolol Tartrate [Lopressor] 25 mg PO BID 07/24/19 04/22/20 Guaifenesin [Mucinex] 600 mg PO BID 03/09/20 04/22/20 Albuterol 2.5 mg INH RTQ4H PRN neb 04/25/20 Azithromycin 250 mg PO UD #12 tablet 04/25/20 Budesonide [Pulmicort] 0.5 mg INH RTBID neb 04/25/20 Ipratropium/Albuterol [Duoneb] 3 ml INH Q4HR #14 neb 04/25/20 04/22/20 Multivitamin W/Minerals [Theragran 1 tab PO DAILYWM tablet 04/25/20 M] methocarbamoL [Robaxin] 500 mg PO Q6HR PRN #30 tablet 04/25/20 predniSONE [Prednisone] 5 mg PO UD #15 tablet 04/25/20 - Allergies Allergies/Adverse Reactions: Allergies Allergy/AdvReac Type Severity Reaction Status Date / Time venom-honey bee Allergy Severe Respiratory Verified 04/28/21 12:43 [bee venom (honey bee)] codeine [Codeine] Allergy Rash Verified 04/28/21 12:43 meperidine HCl * Allergy Emesis Verified 04/28/21 12:43 [From Demerol] morphine Allergy Itching Verified 04/28/21 12:43 Penicillins Allergy Rash Verified 04/28/21 12:43 tetracycline [Tetracycline] Allergy Rash Verified 04/28/21 12:43 - Social History Does the pt smoke?: Yes Smoking Status: Current every day smoker Does the pt drink ETOH?: Yes Does the pt have substance abuse?: No - Immunizations Immunizations are current?: Yes - POLST Patient has POLST: No POLST Status: DNR (no intubation this time. see ACP note.) PD ED PE NORMAL - Vitals Vital signs reviewed: Yes - General General: Alert and oriented X 3, Other (She appears uncomfortable) - HEENT HEENT: PERRL, EOMI - Neck Neck: Supple, no meningeal sign, No bony TTP - Cardiac Cardiac: RRR, No murmur - Respiratory Respiratory: Other (Modest expiratory wheezes with good air motion) - Abdomen Abdomen: Non tender - Back Back: No CVA TTP, No spinal TTP - Derm Derm: Other (Body wide rash which is per her chronic) - Extremities Extremities: No edema, No calf tenderness / cord - Neuro Neuro: Alert and oriented X 3, Normal speech - Psych Psych: Normal mood, Normal affect Results - Vitals Vitals: Vital Signs - 24 hr 04/28/21 04/28/21 04/28/21 12:24 13:09 13:54 Temperature 36.6 C 36.1 C L 36.4 C L Heart Rate 79 80 66 Respiratory 24 17 21 Rate Blood Pressure 154/83 H 107/71 120/74 O2 Saturation 97 95 97 Oxygen O2 Source Room air - EKG (time done) 1231 Rate: Rate (enter#) (78) Rhythm: NSR [place]: Normal Intervals: Normal [place] QRS: Normal Ischemia: Other (Q waves in V1 and V2, no ST elevation or depression.) Compare to prior EKG: Changed from prior EKG (Compared with old EKG dated April 21, 2020, inferior T waves have less amplitude now, but there is no other distinct change.) Computer interpretation: Agree with computer - Labs Labs: Laboratory Tests 04/28/21 04/28/21 04/28/21 12:30 12:30 12:30 WBC 6.1 RBC 4.57 Hgb 15.5 Hct 44.8 MCV 98.0 MCH 33.9 H MCHC 34.6 RDW 11.8 L Plt Count 246 MPV 7.8 L Neut # (Auto) 3.4 Lymph # (Auto) 1.4 L [place] # (Auto) 0.6 Eos # (Auto) 0.5 Baso # (Auto) 0.1 Absolute Nucleated RBC 0.00 Nucleated RBC % 0.0 Sodium 136 Potassium 3.8 Chloride 98 L Carbon Dioxide 25 Anion Gap 13.0 BUN 10 Creatinine 0.8 Estimated GFR (MDRD) 70 L Glucose 84 Calcium 9.2 Total Bilirubin 1.0 AST 19 ALT 14 Alkaline Phosphatase 106 Troponin I High Sens < 2.3 L Total Protein 7.8 Albumin 4.5 Globulin 3.3 Albumin/Globulin Ratio 1.4 Lipase 30 PD MEDICAL DECISION MAKING - ED course ED course: 75-year-old woman who presents with somewhat typical chest pain starting at rest and presents to the emergency department very acutely, her EKG is nonischemic and biomarkers are negative. Given her risk category though she was placed in observation for formal rule out with or without stress testing and I spoke with Dr. Peter for same at 2:04 PM. Departure - Departure Disposition: ED Place in Observation Clinical Impression: Chest pain Qualifiers: Chest pain type: precordial pain Qualified Code(s): R07.2 - Precordial pain Condition: Stable Discharge Date/Time: 04/28/21 15:13
[2021-04-28 12:47] LABS: BASOPHILS # (AUTO) 0.1 10^3/uL (0.0-0.1); BASOPHILS % (AUTO) 1.5 %; EOSINOPHILS # (AUTO) 0.5 10^3/uL (0.0-0.7); EOSINOPHILS % (AUTO) 8.6 %; HCT - HEMATOCRIT 44.8 % (37.0-47.0); HGB - HEMOGLOBIN 15.5 g/dL (12.0-16.0); LYMPHOCYTES # (AUTO) 1.4 10^3/uL (1.5-3.5); LYMPHOCYTES % (AUTO) 23.5 %; MEAN CORPUSCULAR HEMOGLOBIN 33.9 pg (27.0-31.0); MEAN CORPUSCULAR HGB CONC 34.6 g/dL (32.0-36.0); MEAN PLATELET VOLUME 7.8 fL (7.9-10.8); MONOCYTES # (AUTO) 0.6 10^3/uL (0.0-1.0); MONOCYTES % (AUTO) 10.6 %; NEUTROPHILS # (AUTO) 3.4 10^3/uL (1.5-6.6); NEUTROPHILS % (AUTO) 55.5 %; PLT - PLATELET COUNT 246 10^3/uL (130-450); RED BLOOD COUNT 4.57 10^6/uL (4.20-5.40); RED CELL DISTRIBUTION WIDTH 11.8 % (12.0-15.0); WHITE BLOOD COUNT 6.1 x10^3/uL (4.8-10.8)
--- NOTE | 2021-04-28 13:00 | XRAY Report ---
PROCEDURE: Chest 1 View X-Ray INDICATIONS: Chest Pain TECHNIQUE: One view of the chest was acquired. COMPARISON: 04/21/2020 FINDINGS: Surgical changes and devices: None. Lungs and pleura: No pleural effusions or pneumothorax. Lungs are clear. Lungs are hyperinflated ch est and COPD. Mediastinum: Mediastinal contours appear normal. Heart size is normal. Bones and chest wall: No suspicious bony lesions. Overlying soft tissues appear unremarkable. IMPRESSION: No acute cardiopulmonary disease process. Reviewed by: Laura Cadet MD, PhD on 04/28/2021 12:58 PM PDT Approved by: Laura Cadet MD, PhD on 04/28/2021 12:58 PM PDT Station ID: [id number]
[2021-04-28 13:01] LABS: ALBUMIN 4.5 g/dL (3.2-5.5); ALBUMIN/GLOBULIN RATIO 1.4 (1.0-2.2); CALCIUM 9.2 mg/dL (8.5-10.3); CREATININE 0.8 mg/dL (0.4-1.0); POTASSIUM 3.8 mmol/L (3.5-5.0); TOTAL PROTEIN 7.8 g/dL (6.7-8.2)
[2021-04-28] MEDS ORDERED: SODIUM CHLORIDE FLUSH 0.9% 10 ML SYRINGE IVP PRN (14:03)
[2021-04-28] MEDS ORDERED: ONDANSETRON 4 MG/2 ML VIAL IVP PRN (14:08)
[2021-04-28] MEDS ORDERED: ACETAMINOPHEN 325 MG TABLET PO PRN (14:08)
[2021-04-28] MEDS ORDERED: NITROGLYCERIN SL 0.4 MG TABLET SL PRN (14:12)
--- NOTE | 2021-04-28 14:18 | HISTORY & PHYSICAL EXAMINATION ---
Chief Complaint - Chief Complaint Chief Complaint: chest pain History of Present Illness - Admitted From Admitted From:: [facility] ED - History Obtained From Records Reviewed: yes History obtained from: yes - History of Present Illness HPI Comment/Other: Patient is a 75-year-old female who presented to the ED with complaint of chest pressure. This started on the left side of her chest with radiation to the entire chest. It was a constant pressure. She was at rest at onset. Her symptoms were relieved with administration of sublingual nitroglycerin and Dilaudid. She has not experienced recurrence since admission. She denied dyspnea, abdominal pain, nausea, vomiting, fever or chills. She also has a productive cough. In the ED work-up included troponin which was negative. Her EKG showed inverted T waves in leads V1 and V2. She was presented for admission for chest pain rule out. At bedside she is resting comfortably. On exam she has extensive rash on her arms and lower extremities. The rest of her history is unremarkable. History - Past Medical History Cardiovascular: reports: Hypertension Respiratory: reports: COPD, Pneumonia, Shortness of breath (Due to emphysema and a reduced diffusion capacity. Echocardiogram November 2018 with normal left ventricular size. Ejection fraction 65 to 70%. Right ventricle normal size and function. Both atria normal. Mild aortic sclerosis. 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 A few months after the of her son, she was told that she had precancerous uterine lesion and she had a hysterectomy. ) : reports: None HEENT: reports: Chronic vision loss (Wears prescription glasses) Psych: reports: None Musculoskeletal: reports: Osteoarthritis Derm: reports: Other (severe stress induced neurodermatitis 2010. Seen by [facility] derm. Path on bx showed spongiotic dermatitis correlating with atopic dermatitis. Rsolved wtih clobetasol, desitin. Recurred 11/2013. ) MRSA Hx?: No - Past Surgical History General: reports: Appendectomy, Colonoscopy Ortho: reports: Hip replacement (right hip 06/2013), Arthroscopic surgery, Other (osteomyelitis back surgery) /MAIL EXAMINER: reports: Hysterectomy, Oophrectomy, Other (lumpectomies in past with benigh pathology ) HEENT: reports: Tonsil/Adenoidectomy Derm: reports: Skin cancer surgery ([facility] for squamous cell ca both legs 08/2016) - Family & Social History Family History Comment/Other: She is adopted and is unaware of her family history. Social History Notes: She lives at home alone. Adopted daughter lives in [place] [facility] and son lives in [facility] [facility]. She smoked a pack a day for at least 50 years but quit July 2019. Started again when dog this year. She drinks 2 glasses of wine on a daily basis. She denies going through withdrawal in the past. Denies any illicit drug use. She has lived in [place] for most of her life. Moved to [place] about 2004. 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 - POLST Patient has POLST: No POLST Status: DNR (no intubation this time. see ACP note.) Meds/Allgy - Home Medications Home Medications: Ambulatory Orders Medication Instructions Recorded Confirmed Acetaminophen [Pain Relief] 1,000 mg PO BID PRN 06/04/13 04/22/20 Aspirin EC [Ecotrin] 81 mg PO DAILY 06/04/13 04/22/20 Amlodipine Besylate [Norvasc] 10 mg PO DAILY 07/24/19 04/22/20 Metoprolol Tartrate [Lopressor] 25 mg PO BID 07/24/19 04/22/20 Guaifenesin [Mucinex] 600 mg PO BID 03/09/20 04/22/20 Albuterol 2.5 mg INH RTQ4H PRN neb 04/25/20 Azithromycin 250 mg PO UD #12 tablet 04/25/20 Budesonide [Pulmicort] 0.5 mg INH RTBID neb 04/25/20 Ipratropium/Albuterol [Duoneb] 3 ml INH Q4HR #14 neb 04/25/20 04/22/20 Multivitamin W/Minerals [Theragran 1 tab PO DAILYWM tablet 04/25/20 M] methocarbamoL [Robaxin] 500 mg PO Q6HR PRN #30 tablet 04/25/20 predniSONE [Prednisone] 5 mg PO UD #15 tablet 04/25/20 - Allergies Allergies/Adverse Reactions: Allergies Allergy/AdvReac Type Severity Reaction Status Date / Time venom-honey bee Allergy Severe Respiratory Verified 04/28/21 12:43 [bee venom (honey bee)] codeine [Codeine] Allergy Rash Verified 04/28/21 12:43 meperidine HCl * Allergy Emesis Verified 04/28/21 12:43 [From Demerol] morphine Allergy Itching Verified 04/28/21 12:43 Penicillins Allergy Rash Verified 04/28/21 12:43 tetracycline [Tetracycline] Allergy Rash Verified 04/28/21 12:43 Review of Systems - Constitutional Constitutional: denies: Fatigue, Fever, Chills, Weakness - Eyes Eyes: denies: Pain - Ears, Nose & Throat Ears, Nose & Throat: denies: Ear pain - Cardiovascular Cariovascular: reports: Chest pain. denies: Irregular heart rate, Edema - Respiratory Respiratory: denies: Cough - Gastrointestinal Gastrointestinal: denies: Abdominal pain, Abdominal distention, Constipation, Diarrhea, Nausea, Vomiting - Genitourinary Genitourinary: denies: Dysuria, Frequency, Urgency, Hematuria - Musculoskeletal Musculoskeletal: denies: Muscle pain, Back pain, Muscle aches - Integumentary Integumentary: reports: Rash, Pruritis. denies: Lesions, Dryness - Neurological Neurological: denies: General weakness, Focal weakness, Headache, Dizziness - Psychiatric Psychiatric: denies: Depression, Anxiety - Endocrine Endocrine: denies: Polyuria, Polydypsia - Hematologic/Lymphatic Hematologic/Lymphatic: denies: Anemia, Bruising Prior Level of Functionality: Patient is independent of activities of daily living Exam - Vital Signs Vital Signs: Vital Signs x48h Temp Pulse Resp BP Pulse Ox 04/28/21 13:54 36.4 C L 66 21 120/74 97 04/28/21 13:09 36.1 C L 80 17 107/71 95 04/28/21 12:24 36.6 C 79 24 154/83 H 97 - Physical Exam General Appearance: positive: No acute distress, Alert Eyes Bilateral: positive: PERRL, EOMI ENT: positive: No signs of dehydration Neck: positive: No JVD, Trachea midline Respiratory: positive: Chest non-tender, No respiratory distress, Breath sounds nml. negative: Wheezes, Rales, Rhonchi Cardiovascular: positive: Regular rate & rhythm, No murmur Abdomen: positive: Non-tender, No organomegaly, Nml bowel sounds, No distention. negative: Guarding, Rebound Back: positive: Nml inspection Skin: positive: Color nml, Warm, Dry, Skin rash (on arms and legs) Extremities: positive: Non-tender, Full ROM, Nml appearance, No pedal edema Neurologic/Psychiatric: positive: Oriented x3, Mood/affect nml Conclusion/Plan - Problem List (1) Chest pain Conclusion/Plan: Initial troponin was negative. EKG showed inverted T waves in leads V1 and V2. Will trend times tomorrow. If negative will proceed with a stress test tomorrow. Will monitor patient on telemetry. Patient was given a full dose of aspirin. We will continue baby aspirin daily tomorrow. Nitroglycerin ordered sublingual as needed (2) Hypertension Conclusion/Plan: Amlodipine 10 mg p.o. daily. Will resume once verified. (3) End stage COPD Conclusion/Plan: DuoNeb as needed. Continue budesonide twice daily. Continue albuterol as needed. (4) Dermatitis Conclusion/Plan: Acute on chronic. Hydrocortisone cream ordered bid [place] 25mg po q4hrs prn - Lab Results Fish Bones: 04/28/21 12:30 04/28/21 12:30 Core Measures - Anticipated LOS I expect patient to be DC'd or transferred within 96 hours.: Yes - DVT/VTE - Prophylaxis VTE/DVT Device ordered at admit?: Yes VTE/DVT Prophylaxis med ordered at admit?: Yes
[2021-04-28] MEDS ORDERED: IPRATROPIUM/ALBUTEROL 3 ML NEB INH PRN ×2 (14:57→15:10)
[2021-04-28 15:32] LABS: CORONAVIRUS 229E-RESP PCR NOT DETECTED; CORONAVIRUS HKU1-RESP PCR NOT DETECTED; CORONAVIRUS NL63-RESP PCR NOT DETECTED; CORONAVIRUS OC43-RESP PCR NOT DETECTED; HUMAN METAPNEUMOVIRUS NOT DETECTED; INFLUENZA A- RESP PCR PANEL NOT DETECTED; RHINOVIRUS/ENTEROVIRUS NOT DETECTED; SARS-CoV-2 -RESP PCR PANEL NOT DETECTED
[2021-04-28 15:33] LABS: B. PARAPERTUSSIS- RESP PCR PAN NOT DETECTED; B. PERTUSSIS- RESP PCR PANEL NOT DETECTED; C. PNEUMONIAE- RESP PCR PANEL NOT DETECTED; INFLUENZA B - RESP PCR PANEL NOT DETECTED; M. PNEUMONIAE- RESP PCR PANEL NOT DETECTED; PARAINFLUENZA VIRUS 1 NOT DETECTED; PARAINFLUENZA VIRUS 2 NOT DETECTED; PARAINFLUENZA VIRUS 3 NOT DETECTED; PARAINFLUENZA VIRUS 4 NOT DETECTED; RSV- RESP PCR PANEL NOT DETECTED
[2021-04-28] MEDS: diphenhydrAMINE 25 MG CAPSULE PO PRN ×2 (16:11→21:22)
[2021-04-28] MEDS: SODIUM CHLORIDE FLUSH 0.9% 10 ML SYRINGE IVP SCH (16:11)
[2021-04-28] MEDS ORDERED: HYDROmorphone 0.5 MG/0.5 ML SYRINGE IVP PRN (16:38)
[2021-04-28] MEDS: HYDROCORTISONE 1% CREAM 28 GM TUBE TOP SCH (16:41)
--- NOTE | 2021-04-28 17:48 | PHARMACY PROGRESS NOTE ---
- Best Possible Medication History Admit Date and Time: 04/28/21 1403 Processed by: Pharmacy Medication History completed: Yes Patient Interview: Completed Secondary Source(s): Physician records, Pharmacy records, Insurance records (PATIENT ABLE TO CONFIRM HOME MEDICATIONS ) As the person ultimately responsible for medication therapy, providers are able to order a medication from an existing home medication list in [facility] via the "Reconcile Routine" prior to Confirmation of that medication by administrative support manager. Such practice is discouraged except when the physician, in their clinical judgment, deems that a medical need exists for a medication without regard to previous use.
[2021-04-28] MEDS: BUDESONIDE 0.5 MG/2 ML NEB INH SCH (20:30)
[2021-04-29] MEDS: SODIUM CHLORIDE FLUSH 0.9% 10 ML SYRINGE IVP SCH ×3 (00:23→17:41)
[2021-04-29 05:30] LABS: BASOPHILS # (AUTO) 0.1 10^3/uL (0.0-0.1); BASOPHILS % (AUTO) 1.4 %; EOSINOPHILS # (AUTO) 0.5 10^3/uL (0.0-0.7); EOSINOPHILS % (AUTO) 11.2 %; HCT - HEMATOCRIT 40.8 % (37.0-47.0); HGB - HEMOGLOBIN 14.3 g/dL (12.0-16.0); LYMPHOCYTES % (AUTO) 23.6 %; MEAN CORPUSCULAR HEMOGLOBIN 34.2 pg (27.0-31.0); MEAN CORPUSCULAR VOLUME 97.6 fL (81.0-99.0); MONOCYTES # (AUTO) 0.5 10^3/uL (0.0-1.0); MONOCYTES % (AUTO) 12.6 %; NEUTROPHILS # (AUTO) 2.1 10^3/uL (1.5-6.6); PLT - PLATELET COUNT 225 10^3/uL (130-450); RED BLOOD COUNT 4.18 10^6/uL (4.20-5.40); RED CELL DISTRIBUTION WIDTH 11.6 % (12.0-15.0); WHITE BLOOD COUNT 4.2 x10^3/uL (4.8-10.8)
[2021-04-29 05:45] LABS: CALCIUM 9.1 mg/dL (8.5-10.3); CREATININE 0.6 mg/dL (0.4-1.0); POTASSIUM 3.6 mmol/L (3.5-5.0)
[2021-04-29] MEDS: BUDESONIDE 0.5 MG/2 ML NEB INH SCH (07:14)
[2021-04-29] MEDS: HYDROCORTISONE 1% CREAM 28 GM TUBE TOP SCH (08:27)
[2021-04-29] MEDS ORDERED: ASPIRIN EC 81 MG TABLET PO SCH (09:00)
[2021-04-29] MEDS ORDERED: ENOXAPARIN 40 MG/0.4 ML SYRINGE SUBQ SCH (09:00)
[2021-04-29] MEDS ORDERED: AMINOPHYLLINE 500 MG/20 ML VIAL ONE (13:04)
[2021-04-29] MEDS ORDERED: REGADENOSON 0.4 MG/5 ML SYRINGE IVP ONE ×2 (13:04→17:52)
--- NOTE | 2021-04-29 14:27 | CARDIAC PROCEDURE NOTE ---
Stress Test Report Service Date: 04/29/21 Ordering Provider: Dr Matthew العراقي (PCP) Indication for Test: Chest pain Significant Medical History: COPD Cardiac Risk Factors: Ex-smoker, advanced age, post-menopausal status, HTN Type of Stress Test: Pharmacologic Stress Test with MPI Pharmacologic Agent: Lexiscan Procedure: After signing informed consent, the pt underwent a Lexiscan pharmaceutical stress test with nuclear myocardia perfusion imaging Resting HR: 71 Peak HR: 96 Resting BP: 116/70 Peak BP: 140/72 Lexiscan was infused per protocol. The patient developed brief flushing and also had SOB and chest pressure, similar to the feeling that required this hospital stay. All symptoms resolved spontaneously in 3 min. Resting EKG: NSR, right atrial enlargement. EKG at peak: new flattened T waves infero-laterally. These changes return to baseline after 3 min. Summary: 1) Abnormal resting EKG (with RA enlargement). 2) Abnormal T wave changes develop on EKG suggesting coronary ischemia and these did correlate with patient's symptom of chest pressure. 3) Nuclear images were reported separately and showed: A moderate fixed defect is seen at the septum that normalizes with supine imaging suggesting this is artifact. Normal myocardial perfusion, no defects to suggest myocardial ischemia or infarct. Normal LVEF. CONCLUSION: 1) Normal nuclear myocardial perfusion stress test. 2) This patient's cardiac risk: Moderate
--- NOTE | 2021-04-29 15:58 | Discharge Plan ---
Discharge Plan Problem Reviewed?: Yes Disposition: Home, Self Care Condition: Stable Prescriptions: Atorvastatin Calcium 40 mg PO QPM 30 Days #30 tablet Diet: Cardiac Activity Restrictions: Activity as Tolerated Health Concerns: You were admitted on 04/28/21 with chest pain which started on the left side of your chest and radiated over your entire chest. Your pain was relieved when you were given nitroglycerin sublingual and Dilaudid. In the emergency room your initial troponin was negative. This was trended x2 more times. However your EKG was abnormal. So we proceeded with a stress test. Test was abnormal. As a result you are being referred to cardiology. You have an appointment scheduled with Dr. Lauryn lew web marketing coordinator at the [facility]. The date of the appointment is May 11, 2021. He also have an appointment with your primary care physician Dr. Marilou Castro on May 08, 2021. You are strongly advised to keep this appointment. You are also advised to continue taking your baby aspirin daily, your metoprolol tartrate 25mg po bid An added new medication is atorvastatin 40 mg which you will take 1 tablet every evening. The above plan and discussion was explained to you, you expressed understanding and are in agreement. No Smoking: If you smoke, Please STOP! Call for help. Follow-up with: Tim Castro DO [Primary Care Provider] -
--- NOTE | 2021-04-29 15:58 | DISCHARGE SUMMARY ---
Discharge Summary Admit Date: 04/28/21 Discharge Date: 04/29/21 Discharging Provider: Be Peter Primary Care Provider: Marilou Castro Code Status: Do Not Attempt Resuscitation Condition at Discharge: Stable Discharge Disposition: 01 Home, Self Care - DIAGNOSES Admission Diagnoses: Chest pain Hypertension End-stage COPD Dermatitis Discharge Diagnoses with Status of Each Condition: Chest pain: Acute. Stress Test Abnormal. Follow up with Cardiology Coronary artery disease Hypertension: Chronic End-stage COPD: Chronic Dermatitis: Chronic - HPI History of Present Illness: Patient is a 75-year-old female who presented to the ED with complaint of chest pressure. This started on the left side of her chest with radiation to the entire chest. It was a constant pressure. She was at rest at onset. Her symptoms were relieved with administration of sublingual nitroglycerin and Dila udid. She has not experienced recurrence since admission. She denied dyspnea, abdominal pain, nausea, vomiting, fever or chills. She also has a productive cough. In the ED work-up included troponin which was negative. Her EKG showed inverted T waves in leads V1 and V2. She was presented for admission for chest pain rule out. At bedside she is resting comfortably. On exam she has extensive rash on her arms and lower extremities. The rest of her history is unremarkable. - HOSPITAL COURSE Hospital Course: Patient's troponins were trended x2 more and were negative. She had an abnormal stress test. There was an abnormal resting EKG suggesting right heart overload. Abnormal T wave changes developed on EKG suggesting coronary ischemia which correlated with patient's symptoms of chest pressure. She was deemed to be high cardiac risk. The patient takes a baby aspirin daily. She is on metoprolol tartrate 25mg po daily. She was prescribed atorvastatin 40 mg p.o. every afternoon. An appointment was scheduled with Dr. Combs, a sales applications engineer with the [facility]. This was scheduled for May 11, 2021. The patient also has an appointment with her primary care physician Dr. Tim Castro on May 08, 2021. She has been strongly encouraged to keep the appointment. - ALLERGIES Allergies/Adverse Reactions: Allergies Allergy/AdvReac Type Severity Reaction Status Date / Time venom-honey bee Allergy Severe Respiratory Verified 04/28/21 12:43 [bee venom (honey bee)] codeine [Codeine] Allergy Rash Verified 04/28/21 12:43 meperidine HCl * Allergy Emesis Verified 04/28/21 12:43 [From Demerol] morphine Allergy Itching Verified 04/28/21 12:43 Penicillins Allergy Rash Verified 04/28/21 12:43 tetracycline [Tetracycline] Allergy Rash Verified 04/28/21 12:43 - MEDICATIONS Home Medications: Ambulatory Orders Medication Instructions Recorded Confirmed Acetaminophen [Pain Relief] 1,000 mg PO BID PRN 06/04/13 04/28/21 Aspirin EC [Ecotrin] 81 mg PO DAILY 06/04/13 04/28/21 Amlodipine Besylate [Norvasc] 10 mg PO DAILY 07/24/19 04/28/21 Metoprolol Tartrate [Lopressor] 25 mg PO BID 07/24/19 04/28/21 Guaifenesin [Mucinex] 600 mg PO BID 03/09/20 04/28/21 Albuterol 2.5 mg INH RTQ4H PRN neb 04/25/20 04/28/21 Budesonide [Pulmicort] 0.5 mg INH RTBID neb 04/25/20 04/28/21 Ipratropium/Albuterol [Duoneb] 3 ml INH Q4HR #14 neb 04/25/20 04/28/21 Azithromycin 250 mg PO MOWEFR 04/28/21 04/28/21 Atorvastatin Calcium 40 mg PO QPM 30 Days #30 tablet 04/29/21 - PHYSICAL EXAM AT DISCHARGE General Appearance: positive: No acute distress, Alert Eyes Bilateral: positive: PERRL, EOMI ENT: positive: No signs of dehydration Neck: positive: No JVD, Trachea midline Respiratory: positive: Chest non-tender, No respiratory distress, Breath sounds nml. negative: Wheezes, Rales, Rhonchi Cardiovascular: positive: Regular rate & rhythm, No murmur Abdomen: positive: Non-tender, No organomegaly, Nml bowel sounds, No distention. negative: Guarding, Rebound Back: positive: Nml inspection Skin: positive: Color nml, No rash, Warm, Dry Extremities: positive: Non-tender, Full ROM, Nml appearance, No pedal edema Neurologic/Psychiatric: positive: Oriented x3, Mood/affect nml - LABS Result Diagrams: 04/29/21 04:48 04/29/21 04:48 - TIME SPENT Time Spent in Discharge (Minutes): 25
--- NOTE | 2021-04-29 16:58 | Nuclear Medicine Report ---
PROCEDURE: Rest and exercise myocardial perfusion SPECT with gated imaging and ejection fraction INDICATIONS: chest pain RADIOPHARMACEUTICAL: 14.1 mCi Tc-99m Myoview IV at rest and 43.8 mCi Tc-99m Myoview IV at peak exerc ise. [id number] was performed. TECHNIQUE: Radiopharmaceutical was injected at peak stress test, and also at rest. SPECT images wer e obtained. SPECT myocardial perfusion images were displayed in short axis, horizontal long axis, an d vertical long axis views. Gated images were reviewed using AutoQUANT software. COMPARISON: None available. FINDINGS: Raw data: There is good myocardial labeling by radiotracer. No significant motion artifacts. Lung- to-heart ratio is 0.25 (normal is less than 0.46 for tetrafosmin tracer). Left ventricle function: Gated images demonstrate normal left ventricle wall thickening. No segment al wall motion abnormality. No transient ischemic dilation; TID is 0.97 (normal less than 1.30). Th e left ventricle resting end-diastolic volume is normal.. Left ventricle stress ejection fraction is >70%; normal values are above 45%. Myocardial perfusion: There is a moderate size, moderately severe fixed defect in the septum, which is resolved on prone imaging, consistent with attenuation artifact. There is normal distribution of a ctivity in the left and right ventricular myocardium. No fixed or reversible perfusion defects. IMPRESSION: 1. Normal myocardial perfusion images. No perfusion defect to suggest myocardial ischemia or infarct. A moderate size, moderately severe, fixed defect in the septum is normalized on prone imaging, caridad tible with attenuation artifact. The septum contracts normally. 2. Normal left ventricular volume and systolic function. 3. Please correlate with stress EKG. PQRS ATTESTATIONS: Measure 322 - Is this imaging test primarily performed on a low-risk surgery patient for preoperative evaluation within 30 days preceding their low-risk non-cardiac surgery? Low-risk surgery is defined as cardiac or myocardial infarction less than 1%, including (but not limited to) endoscopic pr ocedures, superficial procedures, cataract surgery, and excisional breast surgery: Answer: No Measure 323 - Is this imaging test performed primarily for the monitoring of an asymptomatic patient who had percutaneous coronary intervention on the visit date or within 2 years of the visit date? An swer: No Measure 324 - Is this imaging test performed primarily for the initial detection and risk assessment on an asymptomatic, low coronary heart disease patient? Low CHD risk definition = clinicians should consider the maximum number of available patient factors used to estimate risk based on Cowley (A TP III criteria), typically age, gender, diabetes, smoking status, and use of blood pressure medicati on, and integrate age appropriate estimates for missing elements, such as LDL or standard blood press ure. Answer: No Reviewed by: Bert Henley MD on 04/29/2021 3:57 PM [facility] Approved by: Bert Henley MD on 04/29/2021 3:57 PM [facility] Station ID: [id number]
[2021-04-29 18:16] VITALS: BP 137/77
== END 2021-04-29 18:25 | disposition home or self-care (01) ==
LOC: ED 12:24 → MS2 14:03
PROVIDERS: ADMIT Internal Medicine; ATTEND Internal Medicine
DX: R07.2 Precordial pain (principal); I25.10 Atherosclerotic heart disease of native coronary artery without angina pectoris; I10 Essential (primary) hypertension; J43.9 Emphysema, unspecified; L30.9 Dermatitis, unspecified; H54.7 Unspecified visual loss; Z66 Do not resuscitate; Z99.81 Dependence on supplemental oxygen; Z20.822 Contact with and (suspected) exposure to COVID-19; Z96.641 Presence of right artificial hip joint; Z79.82 Long term (current) use of aspirin; Z79.52 Long term (current) use of systemic steroids; Z79.899 Other long term (current) drug therapy; Z87.891 Personal history of nicotine dependence; Z87.19 Personal history of other diseases of the digestive system; Z87.01 Personal history of pneumonia (recurrent)
CPT/HCPCS: 36415; 71045; 78452; 80048; 80053; 83690; 84484; 85025; 87631; 93005; 93017; 94640; 96372; 96374; 99285; A9270; A9500; G0378; J1170; J1650; J2785; J7626; 0202U

== ENCOUNTER 2021-05-31 10:08 | Outpatient (CLI) | payer MEDICARE | END 2021-05-31 10:09 | disposition home or self-care (01) | LOC: DI 10:08 | PROVIDERS: ATTEND Family Medicine | DX: R06.02 Shortness of breath (principal); J44.9 Chronic obstructive pulmonary disease, unspecified; I87.8 Other specified disorders of veins; Z87.891 Personal history of nicotine dependence | CPT/HCPCS: 93306 ==

== ENCOUNTER 2021-06-01 17:05 | Emergency (ER) | payer MEDICARE ==
--- NOTE | 2021-06-01 19:01 | XRAY Report ---
PROCEDURE: Chest 1 View X-Ray INDICATIONS: Chest Pain TECHNIQUE: One view of the chest was acquired. COMPARISON: 04/28/2021 FINDINGS: Surgical changes and devices: None. Lungs and pleura: No pleural effusions or pneumothorax. Mild diffuse interstitial prominence. Focal axillary region consolidation of the right upper lobe. Mediastinum: Mediastinal contours appear normal. Heart size is normal. Bones and chest wall: No suspicious bony lesions. Overlying soft tissues appear unremarkable. IMPRESSION: Focal pneumonia, right upper lobe. Progress films are recommended until clear. Reviewed by: Burak Zarco MD on 06/01/2021 6:59 PM PDT Approved by: Burak Zarco MD on 06/01/2021 6:59 PM PDT Station ID: [id number]
[2021-06-01 19:04] LABS: BASOPHILS % (AUTO) 0.3 %; EOSINOPHILS # (AUTO) 0.2 10^3/uL (0.0-0.7); EOSINOPHILS % (AUTO) 1.9 %; HCT - HEMATOCRIT 41.4 % (37.0-47.0); HGB - HEMOGLOBIN 14.2 g/dL (12.0-16.0); LYMPHOCYTES # (AUTO) 0.9 10^3/uL (1.5-3.5); LYMPHOCYTES % (AUTO) 8.1 %; MEAN CORPUSCULAR HEMOGLOBIN 33.8 pg (27.0-31.0); MEAN CORPUSCULAR HGB CONC 34.3 g/dL (32.0-36.0); MEAN CORPUSCULAR VOLUME 98.6 fL (81.0-99.0); MEAN PLATELET VOLUME 7.7 fL (7.9-10.8); MONOCYTES % (AUTO) 8.8 %; NEUTROPHILS # (AUTO) 9.4 10^3/uL (1.5-6.6); NEUTROPHILS % (AUTO) 80.6 %; PLT - PLATELET COUNT 199 10^3/uL (130-450); WHITE BLOOD COUNT 11.6 x10^3/uL (4.8-10.8)
[2021-06-01 19:18] LABS: ALBUMIN/GLOBULIN RATIO 1.1 (1.0-2.2); BILIRUBIN,TOTAL 0.9 mg/dL (0.2-1.0); CREATININE 0.8 mg/dL (0.4-1.0); POTASSIUM 3.2 mmol/L (3.5-5.0); TOTAL PROTEIN 7.6 g/dL (6.7-8.2)
[2021-06-01] MEDS ORDERED: levoFLOXacin 250 MG TABLET PO STA (19:35)
--- NOTE | 2021-06-01 19:39 | ED Physician Documentation ---
PD HPI CHEST PAIN - Stated complaint Stated Complaint: SOA - Chief complaint Chief Complaint: Resp - History obtained from History obtained from: Patient - Additional information Additional information: Pt comes to the ED for CC of R chest pain for 2 days. Pt states it is sharp, and hurts worse with deep breath or cough. She states the sx started after she had a worse day of coughing and breathing hard. Pt has a h/o COPD and uses supplemental O2 as needed. No recent increase in need for oxygen. No fever. No h/o DVT/PE. Quit smoking >1 y/a. Does not feel "sick", but wants to get checked. Pfizer vaccine x 2 doses in December. No sick contacts. No LE swelling. No other complaints at this time. Review of Systems Ten Systems: 10 systems reviewed and negative Constitutional: reports: Reviewed and negative Eyes: reports: Reviewed and negative Ears: reports: Reviewed and negative Nose: reports: Reviewed and negative Throat: reports: Reviewed and negative Cardiac: reports: Chest pain / pressure Respiratory: reports: Dyspnea (at baseline), Cough (at baseline) GI: reports: Reviewed and negative : reports: Reviewed and negative Skin: reports: Reviewed and negative Musculoskeletal: reports: Reviewed and negative Neurologic: reports: Reviewed and negative Psychiatric: reports: Reviewed and negative Endocrine: reports: Reviewed and negative Immunocompromised: reports: Reviewed and negative PD PAST MEDICAL HISTORY - Past Medical History Cardiovascular: Hypertension Respiratory: COPD, Pneumonia, Shortness of breath (Due to emphysema and a reduced diffusion capacity. Echocardiogram November 2018 with normal left ventricular size. Ejection fraction 65 to 70%. Right ventricle normal size and function. Both atria normal. Mild aortic sclerosis. 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 A few months after the of her son, she was told that she had precancerous uterine lesion and she had a hysterectomy. ) : None HEENT: Chronic vision loss (Wears prescription glasses) Psych: None Musculoskeletal: Osteoarthritis Derm: Other (severe stress induced neurodermatitis 2010. Seen by [facility] derm. Path on bx showed spongiotic dermatitis correlating with atopic dermatitis. Rsolved wtih clobetasol, desitin. Recurred 11/2013. 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: Hysterectomy, Oophrectomy, Other (lumpectomies in past with benigh pathology ) HEENT: Tonsil/Adenoidectomy Derm: Skin cancer surgery ([facility] for squamous cell ca both legs 08/2016) - Present Medications Home Medications: Ambulatory Orders Medication Instructions Recorded Confirmed Acetaminophen [Pain Relief] 1,000 mg PO BID PRN 06/04/13 04/28/21 Aspirin EC [Ecotrin] 81 mg PO DAILY 06/04/13 04/28/21 Amlodipine Besylate [Norvasc] 10 mg PO DAILY 07/24/19 04/28/21 Metoprolol Tartrate [Lopressor] 25 mg PO BID 07/24/19 04/28/21 Guaifenesin [Mucinex] 600 mg PO BID 03/09/20 04/28/21 Albuterol 2.5 mg INH RTQ4H PRN [facility] 04/25/20 04/28/21 Budesonide [Pulmicort] 0.5 mg INH RTBID neb 04/25/20 04/28/21 Ipratropium/Albuterol [Duoneb] 3 ml INH Q4HR #14 neb 04/25/20 04/28/21 Azithromycin 250 mg PO MOWEFR 04/28/21 04/28/21 Atorvastatin Calcium 40 mg PO QPM 30 Days #30 tablet 04/29/21 levoFLOXacin [Levaquin] 500 mg PO QD 7 Days #14 tablet 06/01/21 - Allergies Allergies/Adverse Reactions: Allergies Allergy/AdvReac Type Severity Reaction Status Date / Time bee venom protein (honey bee) Allergy Anaphylaxis Verified 06/01/21 17:13 codeine Allergy Itching Verified 06/01/21 17:15 meperidine [From Demerol] Allergy Itching Verified 06/01/21 17:14 morphine Allergy Itching Verified 06/01/21 17:15 Penicillins Allergy Unknown Verified 06/01/21 17:14 - Social History Does the pt smoke?: Yes Smoking Status: Current every day smoker Does the pt drink ETOH?: Yes Does the pt have substance abuse?: No - Immunizations Immunizations are current?: Yes - POLST Patient has POLST: No POLST Status: DNR (no intubation this time. see ACP note.) PD ED PE NORMAL - Vitals Vital signs reviewed: Yes - General General: Alert and oriented X 3, No acute distress, Well developed/nourished - HEENT HEENT: Atraumatic, PERRL, EOMI, Moist mucous membranes - Neck Neck: Supple, no meningeal sign - Cardiac Cardiac: RRR, No murmur, Strong equal pulses - Respiratory Respiratory: No respiratory distress, Clear bilaterally, Other (Mild tachypnea, but speaks in full sentences. 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, Normal speech - Psych Psych: Normal mood, Normal affect Results - Vitals Vitals: Vital Signs - 24 hr 06/01/21 20:04 Heart Rate 78 Respiratory 14 Rate Blood Pressure 154/95 H O2 Saturation 99 Oxygen O2 Source Room air - EKG (time done) 1718 Rate: Rate (enter#) (94) Rhythm: NSR Callahan: Normal Intervals: Normal [place] QRS: Normal Ischemia: Normal ST segments Compare to prior EKG: Old EKG unavailable - Labs Labs: Laboratory Tests 06/01/21 06/01/21 06/01/21 18:57 18:57 18:57 WBC 11.6 H RBC 4.20 Hgb 14.2 Hct 41.4 MCV 98.6 MCH 33.8 H MCHC 34.3 RDW 12.0 Plt Count 199 MPV 7.7 L Neut # (Auto) 9.4 H Lymph # (Auto) 0.9 L [place] # (Auto) 1.0 Eos # (Auto) 0.2 Baso # (Auto) 0.0 Absolute Nucleated RBC 0.00 Nucleated RBC % 0.0 Sodium 135 Potassium 3.2 L Chloride 100 L Carbon Dioxide 25 Anion Gap 10.0 BUN 12 Creatinine 0.8 Estimated GFR (MDRD) 70 L Glucose 109 H Calcium 9.0 Total Bilirubin 0.9 AST 15 ALT 17 Alkaline Phosphatase 75 Troponin I High Sens < 2.3 L Total Protein 7.6 Albumin 4.0 Globulin 3.6 Albumin/Globulin Ratio 1.1 Lipase 23 - Rads (name of study) CXR Radiology: Final report received, EMP read indepedently, See rad report (RUL infiltrate) PD MEDICAL DECISION MAKING - ED course Complexity details: reviewed old records, reviewed results, re-evaluated patient, considered differential, d/w patient ED course: Pt was worked up with labs, EKG, and CXR, which showed RUL pneumonia. Pt was given a dose of Levaquin. Her pain was very consistent with musculoskeletal etiology. Her vital signs were normal, and she did not have any lower extremity findings of concern. We have discussed home management of the pain and th usual indications for return. Departure - Departure Disposition: Home, Self Care Clinical Impression: Pneumonia Qualifiers: Pneumonia type: due to unspecified organism Laterality: right Lung location: upper lobe of lung Qualified Code(s): J18.9 - Pneumonia, unspecified organism Condition: Stable Instructions: ED Pneumonia Adult Prescriptions: levoFLOXacin [Levaquin] 500 mg PO QD 7 Days #14 tablet Comments: Your x-ray showed a small area of pneumonia in your right lung. This is almost certainly the cause of your inflammation and pain. You have been started on antibiotics tonight. Please take the antibiotic prescribed each day for the next week, until you have completed the course. Discharge Date/Time: 06/01/21 20:05
[2021-06-01 20:05] VITALS: BP 154/95
== END 2021-06-01 20:05 | disposition home or self-care (01) ==
LOC: ED 17:05
DX: J18.9 Pneumonia, unspecified organism (principal); J43.9 Emphysema, unspecified; Z87.891 Personal history of nicotine dependence; I10 Essential (primary) hypertension; Z79.82 Long term (current) use of aspirin; Z66 Do not resuscitate
CPT/HCPCS: 36415; 71045; 80053; 83690; 84484; 85025; 93005; 99284; A9270

== ENCOUNTER 2021-09-21 11:20 | Emergency (ER) | payer MEDICARE ==
[2021-09-21 12:51] LABS: BASOPHILS % (AUTO) 0.8 %; EOSINOPHILS # (AUTO) 0.2 10^3/uL (0.0-0.7); EOSINOPHILS % (AUTO) 2.9 %; HCT - HEMATOCRIT 40.7 % (37.0-47.0); HGB - HEMOGLOBIN 14.3 g/dL (12.0-16.0); LYMPHOCYTES # (AUTO) 0.8 10^3/uL (1.5-3.5); LYMPHOCYTES % (AUTO) 15.3 %; MEAN CORPUSCULAR HEMOGLOBIN 33.1 pg (27.0-31.0); MEAN CORPUSCULAR HGB CONC 35.1 g/dL (32.0-36.0); MEAN CORPUSCULAR VOLUME 94.2 fL (81.0-99.0); MEAN PLATELET VOLUME 7.8 fL (7.9-10.8); MONOCYTES # (AUTO) 0.5 10^3/uL (0.0-1.0); MONOCYTES % (AUTO) 9.1 %; NEUTROPHILS # (AUTO) 3.7 10^3/uL (1.5-6.6); NEUTROPHILS % (AUTO) 71.7 %; PLT - PLATELET COUNT 170 10^3/uL (130-450); RED BLOOD COUNT 4.32 10^6/uL (4.20-5.40); RED CELL DISTRIBUTION WIDTH 11.9 % (12.0-15.0); WHITE BLOOD COUNT 5.2 x10^3/uL (4.8-10.8)
[2021-09-21 13:00] LABS: ALBUMIN 4.4 g/dL (3.2-5.5); ALBUMIN/GLOBULIN RATIO 1.5 (1.0-2.2); CALCIUM 9.5 mg/dL (8.5-10.3); CREATININE 0.6 mg/dL (0.4-1.0); POTASSIUM 4.5 mmol/L (3.5-5.0); TOTAL PROTEIN 7.3 g/dL (6.7-8.2)
--- NOTE | 2021-09-21 13:29 | XRAY Report ---
PROCEDURE: Chest 1 View X-Ray INDICATIONS: dyspnea TECHNIQUE: One view of the chest was acquired. COMPARISON: 06/01/2021 chest x-ray FINDINGS: Surgical changes and devices: None. Lungs and pleura: No pleural effusions or pneumothorax. Lungs are clear. Mediastinum: Mediastinal contours appear normal. Heart size is normal. Bones and chest wall: No suspicious bony lesions. Overlying soft tissues appear unremarkable. IMPRESSION: No acute process. Reviewed by: Olesya Paulson MD on 09/21/2021 1:28 PM [facility] Approved by: Olesya Paulson MD on 09/21/2021 1:28 PM [facility] Station ID: [id number]
[2021-09-21] MEDS ORDERED: SODIUM CHLORIDE 0.9% 1,000 ML IV STA (14:33)
--- NOTE | 2021-09-21 14:36 | ED Physician Documentation ---
History of Present Illness - Stated complaint Stated Complaint: DIZZINESS/WEAK - Chief complaint Chief Complaint: Neuro - History obtained from History obtained from: Patient - History of Present Illness Timing: How many days ago (3) - Additonal information Additional information: 76-year-old female with a history of end-stage COPD has begun to feel some weakness and shakiness over the past 3 days. She denies any change in her breathing denies any change in her cough or sputum production. She has not had fever. She feels that her shortness of breath is as good as she usually gets and she has been able to walk as much as a mile yesterday. She has developed a rash over her body that is intensely pruritic and has been present for about 1 month. She cannot recall an exposure where she would have been able to be exposed to scabies. She finds a rash on her upper and lower extremities and her back and not on her chest. Review of Systems Constitutional: reports: Fatigue. denies: Fever, Chills Eyes: denies: Decreased vision Ears: denies: Ear pain Nose: denies: Rhinorrhea / runny nose, Congestion Throat: denies: Sore throat Cardiac: denies: Chest pain / pressure, Palpitations Respiratory: reports: Dyspnea, Cough GI: denies: Abdominal Pain, Nausea, Vomiting, Constipation, Diarrhea : reports: Frequency. denies: Dysuria Skin: reports: Rash Musculoskeletal: denies: Neck pain, Back pain Neurologic: reports: Generalized weakness. denies: Focal weakness, Numbness PD PAST MEDICAL HISTORY - Past Medical History Cardiovascular: Hypertension Respiratory: COPD, Pneumonia, Shortness of breath (Due to emphysema and a reduced diffusion capacity. Echocardiogram November 2018 with normal left ventricular size. Ejection fraction 65 to 70%. Right ventricle normal size and function. Both atria normal. Mild aortic sclerosis. 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 A few months after the of her son, she was told that she had precancerous uterine lesion and she had a hysterectomy. ) : None HEENT: Chronic vision loss (Wears prescription glasses) Psych: None Musculoskeletal: Osteoarthritis Derm: Other (severe stress induced neurodermatitis 2010. Seen by [facility] derm. Path on bx showed spongiotic dermatitis correlating with atopic dermatitis. Rsolved wtih clobetasol, desitin. Recurred 11/2013. 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: Hysterectomy, Oophrectomy, Other (lumpectomies in past with [facility] pathology ) HEENT: Tonsil/Adenoidectomy Derm: Skin cancer surgery ([facility] for squamous cell ca both legs 08/2016) - Present Medications Home Medications: Ambulatory Orders Medication Instructions Recorded Confirmed Acetaminophen [Pain Relief] 1,000 mg PO BID PRN 06/04/13 04/28/21 Aspirin EC [Ecotrin] 81 mg PO DAILY 06/04/13 04/28/21 Amlodipine Besylate [Norvasc] 10 mg PO DAILY 07/24/19 04/28/21 Metoprolol Tartrate [Lopressor] 25 mg PO BID 07/24/19 04/28/21 Guaifenesin [Mucinex] 600 mg PO BID 03/09/20 04/28/21 Albuterol 2.5 mg INH RTQ4H PRN [facility] 04/25/20 04/28/21 Budesonide [Pulmicort] 0.5 mg INH RTBID [facility] 04/25/20 04/28/21 Ipratropium/Albuterol [Duoneb] 3 ml INH Q4HR #14 neb 04/25/20 04/28/21 Azithromycin 250 mg PO MOWEFR 04/28/21 04/28/21 Atorvastatin Calcium 40 mg PO QPM 30 Days #30 tablet 04/29/21 levoFLOXacin [Levaquin] 500 mg PO QD 7 Days #14 tablet 06/01/21 Sulfamethox/Trimeth 800/160 1 each PO BID #14 tablet 09/21/21 [Bactrim Ds] - Allergies Allergies/Adverse Reactions: Allergies Allergy/AdvReac Type Severity Reaction Status Date / Time bee venom protein (honey bee) Allergy Anaphylaxis Verified 09/21/21 11:59 codeine Allergy Itching Verified 09/21/21 11:59 meperidine [From Demerol] Allergy Itching Verified 09/21/21 11:59 morphine Allergy Itching Verified 09/21/21 11:59 Penicillins Allergy Unknown Verified 12/22/21 11:59 - Social History Does the pt smoke?: Yes Smoking Status: Current every day smoker Does the pt drink ETOH?: Yes Does the pt have substance abuse?: No - Immunizations Immunizations are current?: Yes - POLST Patient has POLST: No POLST Status: DNR (no intubation this time. see ACP note.) PD ED PE NORMAL - Vitals Vital signs reviewed: Yes (Hypertensive mild) - General General: Alert and oriented X 3, No acute distress, Well developed/nourished - HEENT HEENT: Atraumatic, PERRL, EOMI, Other (Dry mucous membranes) - Neck Neck: Supple, no meningeal sign, No bony TTP - Cardiac Cardiac: RRR, No murmur - Respiratory Respiratory: No respiratory distress, Other (Diminished breath sounds without focal rhonchi) - Abdomen Abdomen: Soft, Non tender - Back Back: No CVA TTP, No spinal TTP - Derm Derm: Normal color, Warm and dry, Other (There is an excoriated plaque-like eruption over the ankles forearms and back. 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, No motor deficit, No sensory deficit, Normal speech Eye Opening: Spontaneous Motor: Obeys Commands Verbal: Oriented GCS Score: 15 - Psych Psych: Normal mood, Normal affect Results - Vitals Vitals: Vital Signs - 24 hr 09/21/21 09/21/21 09/21/21 11:59 13:38 15:00 Temperature 36.8 C Heart Rate 71 68 59 L Respiratory 20 18 16 Rate Blood Pressure 148/73 H 134/83 H 155/78 H O2 Saturation 97 97 98 09/21/21 09/21/21 09/21/21 15:23 15:50 16:13 Temperature 36.6 C Heart Rate 65 68 16 L Respiratory 18 16 22 Rate Blood Pressure 148/79 H 151/80 H 139/83 H O2 Saturation 99 100 97 Oxygen O2 Source Room air - EKG (time done) 51682 Rate: Rate (enter#) (69) QRS: Low voltage (ext leads) Compare to prior EKG: Changed from prior EKG (SPT 06-01-[address] deprssion laterally is now resolved. ) Computer interpretation: Agree with computer - Labs Labs: Laboratory Tests 09/21/21 09/21/21 09/21/21 12:39 12:39 12:39 WBC 5.2 RBC 4.32 Hgb 14.3 Hct 40.7 MCV 94.2 MCH 33.1 H MCHC 35.1 RDW 11.9 L Plt Count 170 MPV 7.8 L Neut # (Auto) 3.7 Lymph # (Auto) 0.8 L [place] # (Auto) 0.5 Eos # (Auto) 0.2 Baso # (Auto) 0.0 Absolute Nucleated RBC 0.00 Nucleated RBC % 0.0 Sodium 130 L Potassium 4.5 Chloride 92 L Carbon Dioxide 27 Anion Gap 11.0 BUN 13 Creatinine 0.6 Estimated GFR (MDRD) 97 Glucose 104 H Calcium 9.5 Total Bilirubin 1.0 AST 26 ALT 19 Alkaline Phosphatase 83 Troponin I High Sens < 2.3 L Total Protein 7.3 Albumin 4.4 Globulin 2.9 Albumin/Globulin Ratio 1.5 Lipase 37 Urine Color Urine Clarity Urine pH Ur Specific [place] Urine Protein Urine Glucose (UA) Urine Ketones Urine Occult Blood Urine Nitrite Urine Bilirubin Urine Urobilinogen Ur Leukocyte Esterase Urine RBC Urine WBC Ur Squamous Epith Cells Urine Bacteria Ur Microscopic Review Urine Culture Comments 09/21/21 15:11 WBC RBC Hgb Hct MCV MCH MCHC RDW Plt Count MPV Neut # (Auto) Lymph # (Auto) [place] # (Auto) Eos # (Auto) Baso # (Auto) Absolute Nucleated RBC Nucleated RBC % Sodium Potassium Chloride Carbon Dioxide Anion Gap BUN Creatinine Estimated GFR (MDRD) Glucose Calcium Total Bilirubin AST ALT Alkaline Phosphatase Troponin I High Sens Total Protein Albumin Globulin Albumin/Globulin Ratio Lipase Urine Color YELLOW Urine Clarity CLOUDY Urine pH 7.0 Ur Specific [place] 1.015 Urine Protein NEGATIVE Urine Glucose (UA) NEGATIVE Urine Ketones NEGATIVE Urine Occult Blood SMALL H Urine Nitrite POSITIVE H Urine Bilirubin NEGATIVE Urine Urobilinogen 0.2 (NORMAL) Ur Leukocyte Esterase LARGE H Urine RBC 6-10 H Urine WBC >25 H Ur Squamous Epith Cells RARE Squamous Urine Bacteria Many H Ur Microscopic Review INDICATED Urine Culture Comments INDICATED Procedures - IVC sono (time) 1430 Bedside IVC sono: IVC measures (cm) (1.09), IVC collapsed c insp (cm) (complete), Dehydration (est 1-2 liter deficit) PD MEDICAL DECISION MAKING - ED course Complexity details: reviewed old records, reviewed results, re-evaluated patient, considered differential, d/w patient ED course: 76-year-old female with end-stage COPD with a chief complaint that she is feeling weak and shaky to be dehydrated on interrogation of her inferior vena cava and she is administered saline with some improvement. She also is having a symptom of urinary frequency. She is feeling that she goes into goes to the bathroom and then has to go right back and there and go again. She does not usually have this symptom has been present for about 1 week. We will treat for urinary tract infection. I have asked the patient to follow-up with [facility] dermatology as I believe her rash is likely scabies I would like to have them confirm this. Departure - Departure Disposition: 01 Home, Self Care Clinical Impression: Dehydration determined by examination Urinary tract infection Qualifiers: Urinary tract infection type: acute cystitis Hematuria presence: with hematuria Qualified Code(s): N30.01 - Acute cystitis with hematuria Condition: Stable Instructions: ED Dehydration, ED UTI Cystitis Female Follow-Up: Tim Castro DO [Primary Care Provider] - Prescriptions: Sulfamethox/Trimeth 800/160 [Bactrim Ds] 1 each PO BID #14 tablet Comments: Sue, today we found that you are dehydrated and we also found that you have a urinary tract infection. We have E scribed a prescription for sulfamethoxazole trimethoprim to the [facility] pharmacy across the street. Discharge Date/Time: 09/21/21 16:14
[2021-09-21 15:20] LABS: BILIRUBIN,URINE NEGATIVE (NEGATIVE); GLUCOSE, URINE (UA) NEGATIVE (NEGATIVE); KETONES,URINE (UA) NEGATIVE (NEGATIVE); LEUKOCYTE ESTERASE, URINE LARGE (NEGATIVE); NITRITE,URINE POSITIVE (NEGATIVE); OCCULT BLOOD,URINE SMALL (NEGATIVE); PROTEIN,URINE NEGATIVE (NEGATIVE); UROBILINOGEN,URINE 0.2 (NORMAL) E.U./dL (NORMAL)
[2021-09-21 15:23] LABS: CLARITY,URINE CLOUDY (CLEAR)
[2021-09-21 15:29] LABS: BACTERIA,URINE Many /HPF (None Seen); SQUAMOUS EPITHELIAL CELL,UR RARE Squamous (<= Few); WBC,URINE >25 /HPF (0-5)
[2021-09-21 16:14] VITALS: BP 139/83
== END 2021-09-21 16:14 | disposition home or self-care (01) ==
LOC: ED 11:20
DX: N30.01 Acute cystitis with hematuria (principal); E86.0 Dehydration; I10 Essential (primary) hypertension; J43.9 Emphysema, unspecified; F17.200 Nicotine dependence, unspecified, uncomplicated
CPT/HCPCS: 36415; 80053; 81001; 81003; 83690; 84484; 85025; 87077; 87086; 87181; 93005; 96360; 99283

== ENCOUNTER 2021-12-22 08:45 | Outpatient (CLI) | payer MEDICARE ==
--- NOTE | 2021-12-22 12:24 | XRAY Report ---
PROCEDURE: Shoulder 2 View LT INDICATIONS: PAIN IN LEFT SHOULDER TECHNIQUE: 2 views of the shoulder were acquired. COMPARISON: None. FINDINGS: Bones: No fractures or dislocations. No suspicious bony lesions. Visualized ribs appear intact. Mi ld left acromioclavicular joint and glenohumeral joint osteoarthritis. Soft tissues: No suspicious soft tissue calcifications. IMPRESSION: Mild left acromioclavicular joint and glenohumeral joint osteoarthritis. Reviewed by: Laura Cadet MD, PhD on 12/22/2021 12:22 PM PDT Approved by: Laura Cadet MD, PhD on 12/22/2021 12:22 PM PDT Station ID: [id number]
== END 2021-12-22 08:46 | disposition home or self-care (01) ==
LOC: DI 08:45
PROVIDERS: ATTEND Family Medicine
DX: M19.012 Primary osteoarthritis, left shoulder (principal)